=== PATIENT | female | born 1940 | race Caucasian/White ===

== ENCOUNTER 2018-09-21 20:20 | Emergency (ER) | payer MEDICARE, OTHER ==
--- OUTSIDE RECORDS SUMMARY | 2018-09-21 20:56 | XMS REPORT | Continuity of Care Document ---
:1940 External Reference #:[id number] Author Name Jami Barraza Care Team Providers Name Role Phone Soni Musa MD Primary Care Physician Unavailable Payers Date Identification Numbers Payment Provider Subscriber Effective: 2009 Policy Number: [id number] Medicare Pro Vo PayID: [id number] [address] [place] [address] Effective: 2009 Policy Number: [id number] [employer] Pro Vo PayID: [id number] [address] [place] [address] Advance Directives Type Date Description Status Comment Other Directive 03/31/2017 [facility] Care Proxy Current and Verified Problems Date Description Provider Status Onset: 04/27/2011 Benign essential hypertension Sarai Ivy, N.P. Active Onset: 04/27/2011 Basal Cell Carcinoma Skin Of Other & Sarai Ivy N.P. Active Unspecified Parts Of Face Onset: 12/22/2015 Essential hypertension Sarai Ivy, N.P. Active Onset: 10/17/2017 Full thickness rotator cuff tear Judah Segura MD Active Onset: 05/25/2018 Localized, primary osteoarthritis of the Judah Segura MD Active shoulder region Family History Date Family Member(s) Observation Comments General Diabetes General Rheumatoid Arthritis General Heart Disease General Hypertension General Stroke Father due to Prostate () - age 86 Cancer Mother Lung Cancer (82), Smoker : (age 82 Mother due to Lung Cancer Years) First Brother Healthy Social History Type Date Description Comments Sex Unknown Marital Status Lives With Alone Occupation 75 Years [employer] retired Age 77 Tobacco Use Start: Unknown Never Smoked Cigarettes Smoking Status Reviewed: 09/13/18 Never Smoked Cigarettes ETOH Use Currently consumes 6 - 8 per week alcohol Tobacco Use Start: Unknown Patient has never smoked Recreational Drug Use Denies Drug Use Recreational Drug Use Never Used Drugs Exercise Type/Frequency Exercises regularly Daily Allergies, Adverse Reactions, Alerts Date Description Reaction Status Severity Comments 03/30/2010 No Known Drug Allergy Active Medications Medication Date Status Form Strength Qnty SIG Indications Ordering Provider Ramipril 09/13 Active Capsules 5mg 90cap 1 by mouth I48.91 Yessy S. /2018 s every day Ganesh, N.P. Xarelto 08/30 Active Tablets 20mg 30tab 1 by mouth s every day Luis Fernando Peña M.D. Centrum Silver Active Tablets 1 by mouth Unknown Ultra Womens /0000 every day Glucosamine Active Capsules 1500Com take two Unknown Chondroitin 1500 /0000 capsule/ta Complex Maximum blet daily Strength by mouth Coq10 Active Capsules 400mg 1 by mouth Unknown /0000 every day Vitamin E-400 Active Capsules 400Unit 1 by mouth Unknown /0000 D3 Maximum Active Capsules 5000Unit take one Unknown Strength /0000 capsule/ta blet daily by mouth Fish Oil [place] 3 Active 1360 mg 1 Unknown Pur[employer] /0000 gel cap po qd Fish Oil Plus Co 09/13 Hx Capsules 1000-30mg Yessy S. Q- Ganesh, - N.P. 09/12 Cardizem CD 08/30 Hx Caps ER 120mg 30cap 1 by mouth 24HR s every day Miya Knight M.D. 08/30 Calan SR 08/30 Hx Tablets 120mg 30tab 1 by mouth ER s every day Miya Knight M.D. 08/30 Cardizem CD 08/30 Hx Caps ER 120mg 30cap 1 by mouth 24HR s every day Miya Knight M.D. 09/13 Clotrimazole 12/21 Hx Yuri 10mg 70uni use 1 B37.0 ts yuri 5 Varn, N.P. - times 05/18 daily for /2017 14 days Tramadol HCL 08/04 Hx Tablets 50mg 60tab 1 tablet s three to Varn, N.P. - four times 12/21 daily needed Vicodin 07/17 Hx Tablets 5-300mg 30tab take 1 by s mouth Varn, N.P. - every 6 08/04 hours needed Gabapentin 11/08 Hx Capsules 300mg 90cap 1 po tid 053.10 s Varn, N.P. - 02/26 Tramadol HCL 11/06 Hx Tablets 50mg 30tab one tablet 733.6 s every 6 Ilsa, - hours as M.D., FACP 02/26 Meclizine HCL 07/09 Hx Tablets 25mg 30tab 1 tablet 386.11 s every 8 Varn, N.P. - hours 02/26 Cipro 06/28 Hx Tablets 250mg 6tabs 1 Twice 788.1 Daily Ilsa, - M.D., FACP 07/04 Pyridium 06/28 Hx Tablets 200mg 1tabs 1 as 788.1 needed Ilsa, - every 6 M.D., FACP Ramipril 05/27 Hx Capsules 5mg 90cap Take 1 I10 s Capsule By Varn, N.P. - Mouth 08/30 /2018 Losartan 04/27 Hx Tablets 50-12.5mg 30tab 1 po qd 401.1 Quynh Potassium/Hydrochl s Ilsa, orothiazide - M.D., FACP 09/09 Hydrochlorothiazid 09/20 Hx Tablets 25mg 90tab Take One s Tablet By Cotton, - Mouth M.D. 04/27 Ciprofloxacin HCL 03/30 Hx 250mg 6unit 1 tab s twice Ilsa, - daily M.D., FACP 04/02 HCTZ Hx 25mg. 90uni 1 tablet Quynh / ts daily Ilsa, - M.D., FACP 10/25 Advil PM Hx Tablets 200-38mg 30tab 1 po q hs Unknown /0000 s prn - 08/30 Aleve Hx Capsules 220mg 60cap 1 po bid Unknown /0000 s prn - 08/30 [place] 3 Hx Capsules 1000mg 1 by mouth Unknown /0000 qd. - 08/30 Potassium Hx Tablets 99mg once a day Unknown /0000 - 05/24 Vitamin D-3 Hx Capsules 1000Unit 1 by mouth Unknown /0000 every day - 09/12 Caltrate 600+D3 Hx Chewtabs 600-800mg 1 by mouth Unknown Soft /0000 -Unit every day - 09/12 Xarelto Hx Tablets 15mg 2 by mouth Unknown /0000 every day - Pt 08/30 to 20 mg after 21 days Medications Administered in Office Medication Date Status Form Strength Qnty SIG Indications Ordering Provider Triamcinolone 05/25/ Administered Injection Zaneb (Kenalog) 2017 MD Imelda Immunizations CPT Code Status Date Vaccine Lot # [id number] Given 04/13/2018 Influenza Virus Vaccine, Quadrivalent, Split, Preservative Free [id number] Given 12/22/2015 Pneumonia Vaccine [id number] 52483 Given 12/22/2015 Tdap - Tetanus/Diptheria/Acellular Pertussis 4 [id number] Given 08/29/2014 Zoster (Zostavax) [id number] 12085 Given 08/29/2014 Pneumococcal Conjugate Vaccine 13 Valent For [id number] Intramuscular Use Vital Signs Date Vital Result Comment 09/13/2018 10:34am Height 64 inches 5'4" Weight 129.50 lb no boots Heart Rate 80 /min BP Systolic Sitting 112 mmHg lue reg cuff BP Diastolic Sitting 80 mmHg lue reg cuff BP Systolic Standing 118 mmHg lue reg cuff BP Diastolic Standing 80 mmHg lue reg cuff Respiratory Rate 14 /min BMI (Body Mass Index) 22.2 kg/m2 Ejection Fraction 55-60% 14 08/30/2018 11:30am Height 64 inches 5'4" Weight 134.00 lb W/ Shoes Heart Rate 78 /min Irreg BP Systolic 125 mmHg Rue BP Diastolic 75 mmHg Rue BP Systolic Sitting 135 mmHg lue BP Diastolic Sitting 80 mmHg lue BP Systolic Standing 125 mmHg lue BP Diastolic Standing 70 mmHg lue Respiratory Rate 16 /min BMI (Body Mass Index) 23.0 kg/m2 08/29/2018 11:56am Height 64 inches 5'4" Weight 135.00 lb Heart Rate 106 /min BP Systolic 125 mmHg 123/88 left arm BP Diastolic 67 mmHg 123/88 left arm Body Temperature 97.0 F O2 % BldC Oximetry 97 % BMI (Body Mass Index) 23.2 kg/m2 05/25/2018 11:09am Height 64 inches 5'4" Heart Rate 72 /min BP Systolic 116 mmHg BP Diastolic 70 mmHg Body Temperature 97.2 F Pain Level 8 05/24/2018 9:54am Height 64 inches 5'4" Weight 133.00 lb Heart Rate 94 /min BP Systolic 129 mmHg BP Diastolic 89 mmHg Body Temperature 96.5 F O2 % BldC Oximetry 98 % BMI (Body Mass Index) 22.8 kg/m2 11/17/2017 10:20am Weight 132.50 lb Heart Rate 78 /min BP Systolic 122 mmHg BP Diastolic 64 mmHg Body Temperature 97.9 F O2 % BldC Oximetry 96 % 10/17/2017 9:29am Height 64 inches 5'4" Weight 135.00 lb Heart Rate 66 /min BP Systolic Sitting 120 mmHg BP Diastolic Sitting 74 mmHg Respiratory Rate 16 /min Pain Level 7 left shoulder BMI (Body Mass Index) 23.2 kg/m2 10/03/2017 9:09am Height 64 inches 5'4" Weight 135.00 lb BP Systolic 128 mmHg BP Diastolic 74 mmHg Respiratory Rate 18 /min Pain Level 7 BMI (Body Mass Index) 23.2 kg/m2 05/19/2017 3:31pm Height 64 inches 5'4" Weight 131.00 lb Heart Rate 76 /min BP Systolic Sitting 140 mmHg BP Diastolic Sitting 92 mmHg Body Temperature 98.0 F O2 % BldC Oximetry 98 % BMI (Body Mass Index) 22.5 kg/m2 01/16/2017 3:46pm Weight 131.00 lb with shoes Heart Rate 69 /min BP Systolic 144 mmHg BP Diastolic 84 mmHg Body Temperature 96.7 F O2 % BldC Oximetry 98 % 12/22/2015 3:34pm Height 63.5 inches 5'3.50" Weight 132.00 lb Heart Rate 68 /min BP Systolic Sitting 124 mmHg BP Diastolic Sitting 76 mmHg Respiratory Rate 15 /min Body Temperature 98.1 F O2 % BldC Oximetry 98 % BMI (Body Mass Index) 23.0 kg/m2 07/21/2015 10:08am Weight 137.50 lb Heart Rate 80 /min BP Systolic Sitting 135 mmHg BP Diastolic Sitting 91 mmHg Body Temperature 97.3 F Pain Level 8 O2 % BldC Oximetry 98 % 08/29/2014 10:29am Height 65 inches 5'5" Weight 141.00 lb Heart Rate 72 /min BP Systolic Sitting 123 mmHg BP Diastolic Sitting 71 mmHg Pain Level 98 BMI (Body Mass Index) 23.5 kg/m2 05/23/2014 11:15am Height 65 inches 5'5" Weight 145.00 lb Heart Rate 80 /min BP Systolic Sitting 120 mmHg BP Diastolic Sitting 78 mmHg Body Temperature 97.0 F BMI (Body Mass Index) 24.1 kg/m2 02/26/2014 3:12pm Height 65 inches 5'5" Weight 142.00 lb Heart Rate 72 /min BP Systolic Sitting 144 mmHg BP Diastolic Sitting 86 mmHg BMI (Body Mass Index) 23.6 kg/m2 11/08/2013 2:58pm Heart Rate 84 /min BP Systolic 136 mmHg BP Diastolic 80 mmHg Respiratory Rate 16 /min Body Temperature 97.1 F 11/06/2013 2:26pm Weight 143.00 lb Heart Rate 88 /min BP Systolic Sitting 142 mmHg BP Diastolic Sitting 80 mmHg Respiratory Rate 20 /min Pain Level 3 constant but has sharp increase at times O2 % BldC Oximetry 97 % 08/26/2013 1:32pm Height 66.75 inches 5'6.75" Weight 139.00 lb Heart Rate 88 /min BP Systolic Sitting 110 mmHg BP Diastolic Sitting 72 mmHg BMI (Body Mass Index) 21.9 kg/m2 07/09/2013 3:48pm Weight 138.50 lb Heart Rate 74 /min BP Systolic Sitting 160 mmHg BP Diastolic Sitting 80 mmHg 07/04/2012 3:06pm Height 65 inches 5'5" Weight 138.00 lb Heart Rate 70 /min BP Systolic Sitting 126 mmHg BP Diastolic Sitting 72 mmHg BMI (Body Mass Index) 23.0 kg/m2 06/28/2012 1:55pm Height 66 inches 5'6" Heart Rate 68 /min BP Systolic Sitting 120 mmHg BP Diastolic Sitting 78 mmHg Body Temperature 97.5 F 09/09/2011 3:54pm Height 66 inches 5'6" Weight 137.00 lb Heart Rate 72 /min BP Systolic Sitting 122 mmHg BP Diastolic Sitting 72 mmHg BMI (Body Mass Index) 22.1 kg/m2 05/27/2011 2:02pm Height 66 inches 5'6" Weight 135.00 lb Heart Rate 60 /min BP Systolic Sitting 150 mmHg BP Diastolic Sitting 80 mmHg BMI (Body Mass Index) 21.8 kg/m2 04/27/2011 2:53pm Height 66 inches 5'6" Weight 135.00 lb Heart Rate 64 /min BP Systolic Sitting 156 mmHg BP Diastolic Sitting 78 mmHg BMI (Body Mass Index) 21.8 kg/m2 10/25/2010 2:53pm Weight 138.50 lb Heart Rate 64 /min BP Systolic 130 mmHg BP Diastolic 80 mmHg 04/26/2010 2:31pm Height 65.25 inches 5'5.25" Weight 136.38 lb Heart Rate 60 /min BP Systolic 140 mmHg BP Diastolic 80 mmHg BMI (Body Mass Index) 22.5 kg/m2 Results Test Date Facility Test Result H/L Range Note Order 08/29/2018 [facility] E[facility] <pending> CBC Auto Diff 08/29/2018 [facility] White Blood 5.4 10^3/uL N 3.5-10.[address] [place] [address] [phone] Red Blood Count 4.14 10^6/uL N 4.00-5.40 Hemoglobin 13.4 g/dL N 12.0-16.0 Hematocrit 40 % N 35-47 Mean Corpuscular Volume 96 fL N 80-97 Mean Corpuscular Hemoglobin 32 pg High 27-31 Mean Corpuscular HGB Conc 34 g/dL N 31-36 Red Cell Distribution Width 13 % N 10.5-15 Platelet Count 248 10^3/uL N 150-450 Mean Platelet Volume 7.7 fL N 7.4-10.4 Abs Neutrophils 3.4 10^3/uL N 1.5-7.7 Abs Lymphocytes 1.5 10^3/uL N 1.0-4.8 Abs Monocytes 0.4 10^3/uL N 0-0.8 Abs Eosinophils 0 10^3/uL N 0-0.6 Abs Basophils 0.1 10^3/uL N 0-0.2 Abs Nucleated RBC 0 10^3/uL Granulocyte % 63.1 % Lymphocyte % 27.5 % Monocyte % 7.7 % Eosinophil % 0.6 % Basophil % 1.1 % Nucleated Red Blood Cells % 0 Comp Metabolic Panel 08/29/2018 [facility] Sodium 135 mmol/L N 135-[address] [place] [address] [phone] Potassium 4.1 mmol/L N 3.5-5.0 Chloride 100 mmol/L Low 101-111 Co2 Carbon Dioxide 27 mmol/L N 22-32 Anion Gap 8 mmol/L N 2-11 Glucose 102 mg/dL High 70-100 Blood Urea Nitrogen 13 mg/dL N 6-24 Creatinine 0.56 mg/dL N 0.51-0.95 BUN/Creatinine Ratio 23.2 High 8-20 Calcium 9.6 mg/dL N 8.6-10.3 Total Protein 7.7 g/dL N 6.4-8.9 Albumin 4.7 g/dL N 3.2-5.2 Globulin 3.0 g/dL N 2-4 Albumin/Globulin Ratio 1.6 N 1-3 Total Bilirubin 0.60 mg/dL N 0.2-1.0 Alkaline Phosphatase 92 U/L N 34-104 Alt 20 U/L N 7-52 Ast 21 U/L N 13-39 Egfr Non- 105.3 >60 Egfr 127.4 >60 1 Laboratory test 08/29/2018 [facility] TSH (Thyroid 2.17 mcIU/mL N 0.34-5.[address] Stim Horm) [place] [address] [phone] Magnesium 2.1 mg/dL N 1.9-2.7 Comp Metabolic Panel 05/28/2018 [facility] Sodium 136 mmol/L N 135-[address] [place] [address] [phone] Potassium 4.1 mmol/L N 3.5-5.0 Chloride 101 mmol/L N 101-111 Co2 Carbon Dioxide 27 mmol/L N 22-32 Anion Gap 8 mmol/L N 2-11 Glucose 102 mg/dL High 70-100 Blood Urea Nitrogen 16 mg/dL N 6-24 Creatinine 0.59 mg/dL N 0.51-0.95 BUN/Creatinine Ratio 27.1 High 8-20 Calcium 9.6 mg/dL N 8.6-10.3 Total Protein 7.9 g/dL N 6.4-8.9 Albumin 4.8 g/dL N 3.2-5.2 Globulin 3.1 g/dL N 2-4 Albumin/Globulin Ratio 1.5 N 1-3 Total Bilirubin 0.80 mg/dL N 0.2-1.0 Alkaline Phosphatase 106 U/L High 34-104 Alt 35 U/L N 7-52 Ast 32 U/L N 13-39 Egfr Non- 99.1 >60 Egfr 119.9 >60 2 Lipid Profile 05/28/2018 [facility] Triglycerides 87 mg/dL 3 (Trig/Chol/HDL) [address] [place] [address] [phone] Cholesterol 225 mg/dL 4 HDL Cholesterol 73.4 mg/dL 5 LDL Cholesterol 134 mg/dL 6 Comp Metabolic Panel 11/14/2017 [facility] Sodium 137 mmol/L Low 139-[address] [place] [address] [phone] Potassium 4.0 mmol/L N 3.5-5.0 Chloride 101 mmol/L N 101-111 Co2 Carbon Dioxide 29 mmol/L N 22-32 Anion Gap 7 mmol/L N 2-11 Glucose 105 mg/dL High 70-100 Blood Urea Nitrogen 11 mg/dL N 6-24 Creatinine 0.56 mg/dL N 0.51-0.95 BUN/Creatinine Ratio 19.6 N 8-20 Calcium 9.6 mg/dL N 8.6-10.3 Total Protein 7.7 g/dL N 6.4-8.9 Albumin 4.7 g/dL N 3.2-5.2 Globulin 3.0 g/dL N 2-4 Albumin/Globulin Ratio 1.6 N 1-3 Total Bilirubin 0.80 mg/dL N 0.2-1.0 Alkaline Phosphatase 109 U/L High 34-104 Alt 12 U/L N 7-52 Ast 16 U/L N 13-39 Egfr Non- 105.5 >60 Egfr 135.7 >60 7 Lipid Profile 11/14/2017 [facility] Triglycerides 139 mg/dL 8 (Trig/Chol/HDL) [address] [place] [address] [phone] Cholesterol 255 mg/dL 9 HDL Cholesterol 66.6 mg/dL 10 LDL Cholesterol 161 mg/dL 11 Laboratory test 11/14/2017 [facility] Vitamin D 46.2 ng/mL N 20-50 [address] Total 25(Oh) [place] [address] [phone] Comp Metabolic 01/01/2015 [facility] Sodium 136 mmol/L N 133- 145 [address] [place] [address] [phone] Potassium 4.3 mmol/L N 3.5-5.0 Chloride 102 mmol/L N 101-111 Co2 Carbon Dioxide 27 mmol/L N 22-32 Anion Gap 7 mmol/L N 2-11 Glucose 96 mg/dL N 70-100 Blood Urea Nitrogen 11 mg/dL N 6-24 Creatinine 0.56 mg/dL N 0.51-0.95 BUN/Creatinine Ratio 19.6 N 8-20 Calcium 9.4 mg/dL N 8.6-10.3 Total Protein 7.3 g/dL N 6.4-8.9 Albumin 4.7 g/dL N 3.2-5.2 Globulin 2.6 g/dL N 2-4 Albumin/Globulin Ratio 1.8 N 1-3 Total Bilirubin 0.80 mg/dL N 0.2-1.0 Alkaline Phosphatase 90 U/L N 34-104 Alt 15 U/L N 7-52 Ast 19 U/L N 13-39 Egfr Non- 106.4 N >60 Egfr 136.9 N >60 14 Lipid Profile 01/01/2015 [facility] Triglycerides 101 mg/dL N 15 (Trig/Chol/HDL) [address] [place] [address] [phone] Cholesterol 269 mg/dL N 16 HDL Cholesterol 72.8 mg/dL N 17 LDL Cholesterol 176 mg/dL N 18 Laboratory test 01/01/2015 [facility] Vitamin D 39.1 ng/mL N 30-[address] Total 25(Oh) [place] [address] [phone] Inr/Protime 07/08/2013 [facility] Inr 0.93 0.85-1.[address] [place] [address] [phone] Laboratory test 07/08/2013 [facility] Activated 27.9 seconds 24.0-36.1 [address] [place] [address] Thrombo Time [phone] Comp Metabolic 07/08/2013 [facility] Sodium 133 mmol/L 133- [address] [place], [place] [id number] [phone] Potassium 3.9 mmol/L 3.5-5.0 Chloride 101 mmol/L 101-111 Co2 Carbon Dioxide 22.0 mmol/L 22-32 Anion Gap 10.0 mmol/L 2-11 Glucose 102 mg/dL High 70-100 Blood Urea Nitrogen 7 mg/dL 6-24 Creatinine 0.50 mg/dL 0.50-1.40 BUN/Creatinine Ratio 14.0 8-20 Calcium 9.5 mg/dL 8.1-9.9 Total Protein 6.7 g/dL 6.2-8.1 Albumin 4.3 g/dL 3.2-5.2 Globulin 2.4 g/dL 2-4 Albumin/Globulin Ratio 1.8 1-3 Total Bilirubin 0.9 mg/dL 0.4-1.5 Alkaline Phosphatase 112 U/L High 30-110 Alt 16 U/L 14-54 Ast 18 U/L 12-42 Egfr Non- 121.6 >60 Egfr 156.4 >60 21 Laboratory test 07/08/2013 [facility] Troponin I 0 ng/mL 0- 0.[address] [place] [address] [phone] Urinalysis 07/08/2013 [facility] Urine Color Yellow [address] [place] [address] [phone] Urine Appearance Clear Urine Specific Blanca 1.011 1.010-1.030 Urine Esterase 2+ Abnormal Negative Urine Nitrate Negative Negative Urine Urobilinogen Negative E.U./dL Negative Urine Protein Negative mg/dL Negative Urine pH 6.5 5-9 Urine Blood Negative Negative Urine Ketones Trace mg/dL Abnormal Negative Urine Bilirubin Negative Negative Urine Glucose Negative mg/dL Negative Urine Microscopic 07/08/2013 [facility] Urine WBC 1+ (<10 None Seen [address] /hpf) [place] [address] [phone] Urine RBC 1+ (<3 /hpf) None Seen Urine Epithelial Cells 1+ Squamous /hpf None Seen Bacteria Urine 1+ None Seen Urine Culture And 07/08/2013 [facility] Urine Culture (SEE NOTE ) [address] [place] [address] [phone] CBC Auto Diff 07/08/2013 [facility] White Blood 3.7 Low 4.8-[address] Count 10^3/uL 0.8 [place] [address] [phone] Red Blood Count 3.97 10^6/uL Low 4.0-5.4 Hemoglobin 12.6 g/dL 12.0-16.0 Hematocrit 36 % 35-47 Mean Corpuscular Volume 91 fL 80-97 Mean Corpuscular Hemoglobin 32 pg High 27-31 Mean Corpuscular HGB Conc 35 g/dL 31-36 Red Cell Distribution Width 12 % 10.5-15 Platelet Count 244 10^3/uL 150-450 Mean Platelet Volume 8 um3 7.4-10.4 Abs Neutrophils 2.3 10^3/uL 1.5-7.7 Abs Lymphocytes 0.9 10^3/uL Low 1.0-4.8 Abs Monocytes 0.4 10^3/uL 0-0.8 Abs Eosinophils 0 10^3/uL 0-0.6 Abs Basophils 0 10^3/uL 0-0.2 Abs Nucleated RBC 0 10^3/uL Granulocyte % 63.1 % 38-83 Lymphocyte % 25.1 % 25-47 Monocyte % 10.1 % High 1-9 Eosinophil % 0.7 % 0-6 Basophil % 1.0 % 0-2 Nucleated Red Blood Cells % 0.1 CBC Auto Diff 07/03/2013 [facility] White Blood 8.1 10^3/uL 4.8-10.[address] [place] [address] [phone] Red Blood Count 4.24 10^6/uL 4.0-5.4 Hemoglobin 13.1 g/dL 12.0-16.0 Hematocrit 39 % 35-47 Mean Corpuscular Volume 92 fL 80-97 Mean Corpuscular Hemoglobin 31 pg 27-31 Mean Corpuscular HGB Conc 34 g/dL 31-36 Red Cell Distribution Width 12 % 10.5-15 Platelet Count 226 10^3/uL 150-450 Mean Platelet Volume 8 um3 7.4-10.4 Abs Neutrophils 6.9 10^3/uL 1.5-7.7 Abs Lymphocytes 0.8 10^3/uL Low 1.0-4.8 Abs Monocytes 0.4 10^3/uL 0-0.8 Abs Eosinophils 0 10^3/uL 0-0.6 Abs Basophils 0 10^3/uL 0-0.2 Abs Nucleated RBC 0 10^3/uL Granulocyte % 85.1 % High 38-83 Lymphocyte % 9.5 % Low 25-47 Monocyte % 4.8 % 1-9 Eosinophil % 0.2 % 0-6 Basophil % 0.4 % 0-2 Nucleated Red Blood Cells % 0 Comp Metabolic Panel 07/03/2013 [facility] Sodium 135 mmol/L 133-[address] [place] [address] [phone] Potassium 3.7 mmol/L 3.5-5.0 Chloride 102 mmol/L 101-111 Co2 Carbon Dioxide 23.0 mmol/L 22-32 Anion Gap 10.0 mmol/L 2-11 Glucose 112 mg/dL High 70-100 Blood Urea Nitrogen 11 mg/dL 6-24 Creatinine 0.50 mg/dL 0.50-1.40 BUN/Creatinine Ratio 22.0 High 8-20 Calcium 9.4 mg/dL 8.1-9.9 Total Protein 7.7 g/dL 6.2-8.1 Albumin 4.4 g/dL 3.2-5.2 Globulin 3.3 g/dL 2-4 Albumin/Globulin Ratio 1.3 1-3 Total Bilirubin 0.9 mg/dL 0.4-1.5 Alkaline Phosphatase 100 U/L 30-110 Alt 21 U/L 14-54 Ast 22 U/L 12-42 Egfr Non- 121.6 >60 Egfr 156.4 >60 24 Laboratory test 07/03/2013 [facility] Troponin I 0 ng/mL 0- 0.06 [address] [place] [address] [phone] Vitamin D 1,25 07/11/2012 [facility] Vitamin D 66 pg/mL 18- 78 26 And Vitamin D,[address] 1,25[place] [address] [phone] Vitamin D, 25 07/11/2012 [facility] 25-Hydroxy <4.0 ng/mL Hydroxy [address] Vitamin [place]2 [place] [address] [phone] 25-Hydroxy Vitamin D3 43 ng/mL 25-Hydroxy Vitamin D Total 43 ng/mL 27 Comp Metabolic Panel 07/11/2012 [facility] Sodium 135 mmol/L 133-[address] [place] [address] [phone] Potassium 3.5 mmol/L 3.5-5.0 Chloride 103 mmol/L 101-111 Co2 Carbon Dioxide 25.0 mmol/L 22-32 Anion Gap 7.0 mmol/L 2-11 Glucose 95 mg/dL 70-100 Blood Urea Nitrogen 8 mg/dL 6-24 Creatinine 0.50 mg/dL 0.50-1.40 BUN/Creatinine Ratio 16.0 8-20 Calcium 9.5 mg/dL 8.1-9.9 Total Protein 6.7 g/dL 6.2-8.1 Albumin 4.5 g/dL 3.2-5.2 Globulin 2.2 g/dL 2-4 Albumin/Globulin Ratio 2.0 1-3 Total Bilirubin 0.9 mg/dL 0.4-1.5 Alkaline Phosphatase 94 U/L 30-110 Alt 18 U/L 14-54 Ast 23 U/L 12-42 Egfr Non- 122.0 >60 Egfr 156.9 >60 28 Lipid Profile 07/11/2012 [facility] Triglycerides 101 mg/dL 40-200 (Trig/Chol/HDL) [address] [place] [address] [phone] Cholesterol 276 mg/dL High Less than 200 HDL Cholesterol 68 mg/dL High 40-60 29 Cholesterol/HDL Ratio 4.1 Average 1-4.44 LDL Cholesterol 187.8 mg/dL High Less Than 100 30 Laboratory test 07/11/2012 [facility] TSH (Thyroid 3.78 0.34- 5.[address] Stimulating MIU/[place] [address] Horm) [phone] Ua Routine 07/04/2012 [facility] Ua Specific 1.005 Blanca Ua PH 7 Ua Color eh Ua Appera clear Ua WBC trace Ua Protein neg Ua Glucose neg Ua Ketones neg Ua Bilirubin neg Ua Urobilinogen neg Ua Nitrite neg Ua Occult Blood neg Ua Routine 06/28/2012 [facility] Ua Specific Blanca 1.000 Ua PH 5 Ua Color pale Ua Appera clear Ua WBC small Ua Protein neg Ua Glucose neg Ua Ketones neg Ua Bilirubin neg Ua Urobilinogen neg Ua Nitrite neg Ua Occult Blood Non hem trace Urine Culture And 06/28/2012 [facility] Urine Culture (SEE NOTE ) 31 Sensitivities [address] [place] [address] [phone] Comp Metabolic 05/12/2011 [facility] Sodium 135 mmol/L 135- [address] [place] [phone] Potassium 4.2 mmol/L 3.5-5.0 Chloride 100 mmol/L Low 101-111 Co2 (Carbon Dioxide) 30.0 mmol/L 22-32 Anion Gap 5.0 mmol/L 2-11 32 Glucose 99 mg/dL 70-100 BUN 8 mg/dL 6-24 Creatinine 0.5 mg/dL Low 0.50-1.40 One Over Creatinine 2.00 BUN/Creatinine Ratio 16.0 8-20 Calcium 9.3 mg/dL 8.1-9.9 Total Protein 7.0 GM/DL 6.2-8.1 Albumin 4.2 GM/DL 3.2-5.2 Globulin 2.8 GM/DL 2-4 Albumin/Globulin Ratio 1.5 1-3 Bilirubin Total 0.9 mg/dL 0.4-1.5 33 Alkaline Phosphatase 80 U/L 30-110 Alt (SGPT) 19 U/L 14-54 Ast (Sgot) 23 U/L 12-42 eGFR Non- 122.3 > 60 eGFR 157.3 > 60 34 Laboratory test 05/12/2011 [facility] TSH 4.59 MIU/ML 0.34- 5.[address] [place] [address] [phone] Lipid Profile 05/12/2011 [facility] Triglyceride 157 mg/dL 40 -200 (Trig/Chol/HDL) [address] [place] [address] [phone] Cholesterol 283 mg/dL High Less Than 200 35 High Density Lipoprotein 69 mg/dL High 40-60 36 Cholesterol/HDL Ratio 4.10 AVERAGE 1-4.44 Low Density Lipoprotein 183 mg/dL High Less Than 100 37 1 Because ethnic data is not always readily available, this report includes an eGFR for both -Americans and non- Americans. The National Kidney Disease Education Program (NKDEP) does not endorse the use of the MDRD equation for patients that are not between the ages of 18 and 70, are , have extremes of body size, muscle mass, or nutritional status, or are non- or non-. According to the [employer], irrespective of diagnosis, the stage of the disease is based on the level of kidney function: Stage Description GFR(mL/min/1.73 m(2)) 1 Kidney damage with normal or decreased GFR 90 2 Kidney damage with mild decrease in GFR 60-89 3 Moderate decrease in GFR 30-59 4 Severe decrease in GFR 15-29 5 Kidney failure <15 (or dialysis) 2 Because ethnic data is not always readily available, this report includes an eGFR for both -Americans and non- Americans. The National Kidney Disease Education Program (NKDEP) does not endorse the use of the MDRD equation for patients that are not between the ages of 18 and 70, are , have extremes of body size, muscle mass, or nutritional status, or are non- or non-. According to the National Kid[employer] Foundation, irrespective of diagnosis, the stage of the disease is based on the level of kidney function: Stage Description GFR(mL/min/1.73 m(2)) 1 Kidney damage with normal or decreased GFR 90 2 Kidney damage with mild decrease in GFR 60-89 3 Moderate decrease in GFR 30-59 4 Severe decrease in GFR 15-29 5 Kidney failure <15 (or dialysis) 3 Desirable: <150 Borderline High: 150-199 High: 200-499 Very High: >500 4 Desirable: <200 Borderline High: 200-239 High: >239 5 Low: <40 Desirable: 40-60 High: >60 6 Desirable: <100 Near Optimal: 100-129 Borderline High: 130-159 High: 160-189 Very High: >189 7 Because ethnic data is not always readily available, this report includes an eGFR for both -Americans and non- Americans. The National Kidney Disease Education Program (NKDEP) does not endorse the use of the MDRD equation for patients that are not between the ages of 18 and 70, are , have extremes of body size, muscle mass, or nutritional status, or are non- or non-. According to the National Kidney Foundation, irrespective of diagnosis, the stage of the disease is based on the level of kidney function: Stage Description GFR(mL/min/1.73 m(2)) 1 Kidney damage with normal or decreased GFR 90 2 Kidney damage with mild decrease in GFR 60-89 3 Moderate decrease in GFR 30-59 4 Severe decrease in GFR 15-29 5 Kidney failure <15 (or dialysis) 8 Desirable: <150 Borderline High: 150-199 High: 200-499 Very High: >500 9 Desirable: <200 Borderline High: 200-239 High: >239 10 Low: <40 Desirable: 40-60 High: >60 11 Desirable: <100 Near Optimal: 100-129 Borderline High: 130-159 High: 160-189 Very High: >189 12 FASTING 10 HOUR 13 PT IS FASTING 14 Because ethnic data is not always readily available, this report includes an eGFR for both -Americans and non- Americans. The National Kidney Disease Education Program (NKDEP) does not endorse the use of the MDRD equation for patients that are not between the ages of 18 and 70, are , have extremes of body size, muscle mass, or nutritional status, or are non- or non-. According to the National Kidney Foundation, irrespective of diagnosis, the stage of the disease is based on the level of kidney function: Stage Description GFR(mL/min/1.73 m(2)) 1 Kidney damage with normal or decreased GFR 90 2 Kidney damage with mild decrease in GFR 60-89 3 Moderate decrease in GFR 30-59 4 Severe decrease in GFR 15-29 5 Kidney failure <15 (or dialysis) 15 Desirable <150 Borderline high 150-199 High 200-499 Very High >500 16 Desirable <200 Borderline high 200-239 High >239 17 Low <40 Desirable: 40-60 High: >60 18 Desirable: <100 mg/dL Near Optimal: 100-129 mg/dL Borderline High: 130-159 mg/dL High: 160-189 mg/dL Very High: >189 mg/dL 19 Please note the change in the INR reference range effective 13. 20 Please note the change in the PTT reference range effective 13. 21 Because ethnic data is not always readily available, this report includes an eGFR for both -Americans and non- Americans. The National Kidney Disease Education Program (NKDEP) does not endorse the use of the MDRD equation for patients that are not between the ages of 18 and 70, are , have extremes of body size, muscle mass, or nutritional status, or are non- or non-. According to the National Kidney Foundation, irrespective of diagnosis, the stage of the disease is based on the level of kidney function: Stage Description GFR(mL/min/1.73 m(2)) 1 Kidney damage with normal or decreased GFR 90 2 Kidney damage with mild decrease in GFR 60-89 3 Moderate decrease in GFR 30-59 4 Severe decrease in GFR 15-29 5 Kidney failure <15 (or dialysis) 22 Reference Range and Interpretation: TnI (ng/mL) Interpretation Less Than 0.06 ng/mL Not supportive of diagnosis of IN 0.06 - 0.50 ng/mL Indeterminate: suggest serial studies if clinically indicated. Greater than 0.5 ng/mL Consistent with diagnosis of IN 23 RUN DATE: 07/10/13 [facility] LAB LIVE PAGE 1 RUN TIME: [address] [place] [id number] Specimen Inquiry Name: PRO VO : [address]: Giovanny Velázquez DO Acct: [id number] Unit: [id number] AGE: 73 Location: ED Re07/08/13 SEX: F Status: DEP ER SPEC: [id number] RANJANA: 07/08/13-[address] [facility] [address]: Raysa BENITEZ REQ: [id number] RECD: 07/08/13 STATUS: JATIN VILLA DR: [facility] Sarai Ivy ELECTRICAL AUTOMATION ENGINEER _ SOURCE: URINE SPDESC: ORDERED: Urine Culture Procedure Result Verified Site Urine Culture Final 07/10/13- 09 ML No Growth Day 2 (<1,000 CFU/mL) END OF REPORT * ML=Testing performed at Main Lab DEPARTMENT OF PATHOLOGY, [address] [place] [address] Ted Alaniz M.D. Director [facility] Permit #[id number] 24 Because ethnic data is not always readily available, this report includes an eGFR for both -Americans and non- Americans. The National Kidney Disease Education Program (NKDEP) does not endorse the use of the MDRD equation for patients that are not between the ages of 18 and 70, are , have extremes of body size, muscle mass, or nutritional status, or are non- or non-. According to the National Kidney Foundation, irrespective of diagnosis, the stage of the disease is based on the level of kidney function: Stage Description GFR(mL/min/1.73 m(2)) 1 Kidney damage with normal or decreased GFR 90 2 Kidney damage with mild decrease in GFR 60-89 3 Moderate decrease in GFR 30-59 4 Severe decrease in GFR 15-29 5 Kidney failure <15 (or dialysis) 25 Reference Range and Interpretation: TnI (ng/mL) Interpretation Less Than 0.06 ng/mL Not supportive of diagnosis of IN 0.06 - 0.50 ng/mL Indeterminate: suggest serial studies if clinically indicated. Greater than 0.5 ng/mL Consistent with diagnosis of IN 26 Test Performed by: [place] [address] Database Programmer Analyst: Miguel Ahn III, M.D. 27 -- REFERENCE VALUE -- 25-HYDROXY D TOTAL (D2+D3) Optimum levels in the normal population are 25-80 Test Performed by: [place] [address] Database Programmer Analyst: Miguel Ahn III, M.D. 28 Because ethnic data is not always readily available, this report includes an eGFR for both -Americans and non- Americans. The National Kidney Disease Education Program (NKDEP) does not endorse the use of the MDRD equation for patients that are not between the ages of 18 and 70, are , have extremes of body size, muscle mass, or nutritional status, or are non- or non-. According to the National Kidney Foundation, irrespective of diagnosis, the stage of the disease is based on the level of kidney function: Stage Description GFR(mL/min/1.73 m(2)) 1 Kidney damage with normal or decreased GFR 90 2 Kidney damage with mild decrease in GFR 60-89 3 Moderate decrease in GFR 30-59 4 Severe decrease in GFR 15-29 5 Kidney failure <15 (or dialysis) 29 HDL Interpretation: Undesirable: High Risk: Less than 40 MG/DL Desirable: Low Risk: Greater than 60 MG/DL 30 LDL Interpretation: Low Risk Optimal Level: LDL Less than 100 MG/DL Near or Above Optimal: LDL 100-129 MG/DL Borderline High Risk: LDL 130-159 MG/DL High Risk: LDL 160-189 MG/DL Very High Risk: LDL Greater than 189 MG/DL 31 RUN DATE: 06/30/12 [facility] LAB LIVE PAGE 1 RUN TIME: [address] [place], [place] [address] Specimen Inquiry Name: PRO VO : [address]: Quynh Rosenbaum MD Acct: [id number] Unit: [id number] AGE: 72 Location: [facility] Re06/28/12 SEX: F Status: REG REF SPEC: [id number] RANJANA: 06/28/121428 [facility] DR: Quynh Rosenbaum MD REQ: [id number] RECD: 06/28/12 STATUS: COMP _ SOURCE: URINE SPDESC: ORDERED: Urine Culture QUERIES: Medent Number [id number] Procedure Result Verified Site Urine Culture Final 06/30/12- 1109 ML Organism 1 NORMAL CALE [place] Count 1-10,000 (Few) CFU/ML END OF REPORT * ML=Testing performed at Main Lab DEPARTMENT OF PATHOLOGY, [address] [place] [address] Ted Alaniz M.D. Director [facility] Permit #[id number] 32 Anion gap measurement may be of limited value in the presence of any alkalosis, especially in a combined acid base disorder. . 33 A metabolite of Naproxen, O-desmethylnaproxen, has been shown to interfere with the Jendrassik-Opal method for measuring total bilirubin. Samples from patients who have taken Naproxen have shown spurious elevation in total bilirubin levels. 34 Because ethnic data is not always readily available, this report includes an eGFR for both -Americans and non- Americans. The National Kidney Disease Education Program (NKDEP) does not endorse the use of the MDRD equation for patients that are not between the ages of 18 and 70, are , have extremes of body size, muscle mass, or nutritional status, or are non- or non-. According to the National Kidney Foundation, irrespective of diagnosis, the stage of the disease is based on the level of kidney function: Stage Description GFR(mL/min/1.73 m(2)) 1 Kidney damage with normal or decreased GFR 90 2 Kidney damage with mild decrease in GFR 60-89 3 Moderate decrease in GFR 30-59 4 Severe decrease in GFR 15-29 5 Kidney failure <15 (or dialysis) 35 CHOLESTEROL INTERPRETATION: Desirable: Less than 200 MG/DL Borderline-High Risk: 200-239 MG/DL High-Risk: 240 MG/DL and over 36 HDL INTERPRETATION: Undesirable: High Risk: Less than 40 MG/DL Desirable: Low Risk: Greater than 60 MG/DL 37 LDL INTERPRETATION: Low Risk Optimal Level: LDL Less than 100 MG/DL Near or Above Optimal: LDL 100-129 MG/DL Borderline High Risk: LDL 130-159 MG/DL High Risk: LDL 160-189 MG/DL Very High Risk: LDL Greater than 189 MG/DL Procedures Date Code Description Status 09/13/2018 13474 EKG Tracing & Interpretation Completed 08/31/2018 13135 Moderate Sedation Services; Same Phys Intl 15 Mins; PT Completed >=5 Years 08/31/2018 97638 Color Flow Doppler/Interp & Reprt Completed 08/31/2018 62698 Pulse Wave/Continuous-Interp.RPT Completed 08/31/2018 53803 Echocardiography, Transesophageal, Real Time W/Image Completed 2D W/W/O M-M 08/31/2018 19893 Cardioversion Completed 08/30/2018 21878 ECHO Transthoracic, Real-Time 2D With Doppler And Completed Color Flow 08/30/2018 57146 ECHO Transthoracic, Real-Time 2D With Doppler And Completed Color Flow 08/30/2018 50382 ECHO Transthoracic, Real-Time 2D With Doppler And Completed Color Flow 08/30/2018 50762 EKG Tracing & Interpretation Completed 08/29/2018 09016 EKG Tracing & Interpretation Completed 05/25/2018 [id number] Mammogram Completed 05/25/2018 75389 Inject/Drain Joint/Bursa Major W/O US Completed 12/25/2015 [id number] Mammogram Completed 09/15/2014 [id number] Bone Mineral Density Test Completed 04/24/2014 [id number] Colonoscopy Completed 07/11/2012 [id number] Bone Mineral Density Test Completed 07/11/2012 [id number] Mammogram Completed 05/20/2011 [id number] Mammogram Completed 04/27/2011 50959 EKG Tracing & Interpretation Completed 05/06/2010 [id number] Bone Mineral Density Test Completed 05/06/2010 [id number] Mammogram Completed 10/10/2008 57179 EKG Tracing & Interpretation Completed Encounters Type Date Location Provider Dx Diagnosis Office Visit 08/30/2018 [facility] Mo Gould I10 Essential ( primary) 11:20a Of Theresa Peña M.D. hypertension I48.0 Paroxysmal atrial fibrillation R06.00 Dyspnea, unspecified I34.0 Nonrheumatic mitral (valve) insufficiency R01.1 Cardiac murmur, unspecified Office Visit 08/29/2018 11:40a [facility] Sarai Ivy, I10 Essential ( primary) Medicine - N.P. hypertension [place] I48.1 Persistent atrial fibrillation Office Visit 05/25/2018 Orthopedic Judah Segura, M19.011 Primary 11:30a Services Of osteoarthritis, C.M.A. right shoulder M75.121 Complete rotatr-cuff tear/ruptr of r shoulder, not trauma Office Visit 11/17/2017 10:20a [facility] Marques Ivy, I10 Essential ( primary) Medicine - N.P. hypertension [place] G25.0 Essential tremor Office Visit 10/17/2017 9:30a Orthopedic Judah Segura, M75.122 Complete Services Of rotatr-cuff C.M.A. tear/ruptr of left shoulder, not trauma Office Visit 10/03/2017 9:00a Orthopedic Judah Segura, M25.512 Pain in left Services Of shoulder C.M.A. S46.012A Strain of musc/tend the rotator cuff of left shoulder, init Office Visit 01/16/2017 4:00p Theresa Ivy, R43.0 Anosmia Medicine - N.P. [place] Office Visit 07/21/2015 10:20a Theresa Ivy, M54.5 Low back pain Medicine - N.P. [place] Office Visit 05/23/2014 11:20a Theresa Ivy V72.84 Examination Medicine - N.P. Preoperative [place] Unspec 401.1 Hypertension Benign 366.9 Cataract Unspec Office Visit 02/26/2014 3:00p [facility] Internal Sarai Ivy, 724.1 Pain Thoracic Medicine - N.P. 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 General Medical [place] Routine AT Health Care Facility 401.1 Hypertension Benign 726.19 Shoulder Disorders Other Spec Office Visit 07/09/2013 4:20p [facility] Internal Sarai Ivy, 386.11 Vertigo Benign Medicine - N.P. Paroxysmal [place] Position Office Visit 06/28/2012 2:20p [facility] Internal Quynh Rosenbaum, 788.1 Dysuria Medicine - M.D., FACP [place] Office Visit 09/09/2011 4:00p [facility] Internal Sarai Ivy, 729.5 Pain In Limb Medicine - N.P. [place] Office Visit 05/27/2011 2:00p DO Not Use Sarai Varn, 401.1 Hypertension Bank Advisor-[place] N.P. Benign 272.4 Hyperlipidemia Other Unspec Office Visit 04/27/2011 DO Not Use Sarai Varn, V70.0 Examination 3:00p Bank Advisor-[place] N.P. General Medical Routine AT Health Care Facility 401.1 Hypertension Benign 733.90 Bone & Cartilage Disorder Unspec V76.10 Screening For Malignant Neoplasm Breast Office Visit 10/25/2010 DO Not Use Sarai Varn, 401.1 Hypertension 3:00p Bank Advisor-[place] N.P. Benign 719.49 Pain Joint Multiple Sites Office Visit 04/26/2010 DO Not Use Sarai Varn, V70.0 Examination 3:00p Bank Advisor-[place] N.P. General Medical Routine AT Health Care Facility V76.2 Screening Malignant Neoplasm Cervix 401.1 Hypertension Benign 715.90 Osteoarthrosis Unspec Genlzd Or Localized Site Unspec 627.3 Atrophic Vaginitis Postmenopausal 724.2 Lumbago V72.31 Routine Manager Property Examination Office Visit 03/30/2010 DO Not Use Quynh Ilsa, 599.0 UTI Urinary Tract 2:30p Kelvin Morejon, FACP Infection Site Not Spec Office Visit 08/18/2009 DO Not Use Sarai 401.1 Hypertension Benign 3:30p Bank Advisor-[place] Varn, N.P. Office Visit 12/10/2008 DO Not Use Sarai 709.9 Skin & Subcutaneous 9:30a Bank Advisor-[place] Varn, N.P. Tissue Disorders Unspec Office Visit 10/10/2008 DO Not Use Sarai 401.1 Hypertension Benign 2:00p Bank Advisor-[place] Varn, N.P. Office Visit 05/18/2007 DO Not Use Sarai 110.5 Dermatophytosis Body 10:45a Bank Advisor-[place] Varn, N.P. Office Visit 04/25/2007 DO Not Use Sarai 796.2 Blood Pressure 3:45p Bank Advisor-[place] Varn, N.P. Reading Elevated W/O Hypertension 272.4 Hyperlipidemia Other Unspec Office Visit 04/11/2007 DO Not Use Sarai Varn, V72.31 Routine Manager Property 2:00p Bank Advisor-[place] N.P. Examination Plan of Treatment Future Appointment(s):11/02/2018 2:20 pm - Mo Peña M.D. at [facility]09/26/2018 11:00 am - Yessy Andersen NPeri. at [facility]2018 9:00 am - [facility] ECHO Schedule at [facility]10/03/2018 9:30 am - Mo Peña M.D. at [facility]09/21/2018 1:30 pm - Nurse Visit cc at [facility]09/20/2018 3:00 pm - Nurse Visit cc at [facility]05/27/2019 9:20 am - Sarai Ivy N.P. at [facility] Internal Medicine - [id number]/25/2019 9:40 am - Sarai Ivy N.PChalino at [facility] Internal Medicine - Andeoejyl56/14/2019 - Yessy S. Foster, N.P.I48.91 Unspecified atrial fibrillationNew Medication:Ramipril 5 mg - 1 by mouth every dayNew Orders: Holter Monitor, Scheduled: 09/20/18Stress Test, Exercise Echocardiogram, Scheduled: 10/03/18Follow up:NALINI Krishnamurthy after Holter OV Aleksandarr 4/1Recommendations: STOP Diltiazem Restart Ramipril Have holter to eval heart rate. Further treatment options include antiarrhythmics and repeat cardioversion. Flecanide and Propafenone are very effective and can only beused in people without coronary disease I will get a stress test, so that we have option of using these in future. Call or send message if you have worsening palpitations/ heart racing off diltiazem.I34.0 Nonrheumatic mitral (valve) [id number] Essential (primary) hypertension
--- OUTSIDE RECORDS SUMMARY | 2018-09-21 20:57 | XMS REPORT | Continuity of Care Document ---
:1940 External Reference #:[id number] Author Name Edda Griffin Care Team Providers Name Role Phone Soni Musa MD Primary Care Physician Unavailable Payers Date Identification Numbers Payment Provider Subscriber Effective: 2009 Policy Number: [id number] Medicare Pro Vo PayID: [id number] [address] [place] [address] Effective: 2009 Policy Number: [id number] [employer] Insurance Pro Vo PayID: [id number] [address] [place] [address] Advance Directives Type Date Description Status Comment Other Directive 03/31/2017 [facility] Care Proxy Current and Verified Problems Date Description Provider Status Onset: 04/27/2011 Benign essential hypertension Sarai Ivy, N.P. Active Onset: 04/27/2011 Basal Cell Carcinoma Skin Of Other & Sarai Ivy, N.P. 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 Centrum Silver Active Tablets 1 by mouth Unknown Ultra Womens /0000 every day Glucosamine Active Capsules 1500Com take one Unknown Chondroitin 1500 /0000 capsule/ta Complex Maximum blet daily Strength by mouth Coq10 Active Capsules 400mg 1 by mouth Unknown /0000 every day Vitamin D-3 Active Capsules 1000Unit 1 by mouth Unknown /0000 every day Vitamin E-400 Active Capsules 400Unit 1 by mouth Unknown /0000 Caltrate 600+D3 Active Chewtabs 600-800mg 1 by mouth Unknown Soft /0000 -Unit [facility] Hx Caps ER 120mg 30cap 1 by mouth 24HR s every day Miya Knight M.D. 08/30 Calan SR 08/30 Hx Tablets 120mg 30tab 1 by mouth ER s every day Miya Knight M.D. 08/30 Clotrimazole 12/21 Hx Yuri 10mg 70uni use 1 B37.0 ts yuri 5 Varn, N.P. - times 05/18 daily for 14 days Tramadol HCL 08/04 Hx Tablets 50mg 60tab 1 tablet s three to Varn, N.P. - four times 12/21 daily needed Vicodin 07/17 Hx Tablets 5-300mg 30tab take 1 by s mouth Varn, N.P. - every 6 /05 hours needed Gabapentin 11/08 Hx Capsules 300mg [...] 50-12.5mg 30tab 1 po qd 401.1 Quynh Potassium/Hydroc s Ilsa, orothiazide - M.D., FACP 09/09 Hydrochlorothiazid 09/20 Hx Tablets 25mg 90tab Take One Soni s Tablet By Cotton, - Mouth M.D. 04/27 Ciprofloxacin HCL 03/30 Hx 250mg 6unit 1 tab s twice Ilsa, - daily M.D., FACP 04/02 HCTZ Hx 25mg. 90uni 1 tablet Quynh ts daily Ilsa, - M.D., FACP 10/25 Advil PM Hx Tablets 200-38mg 30tab 1 po q hs Unknown /0000 s prn - 08/30 Aleve Hx Capsules 220mg 60cap 1 po bid Unknown / s prn - 08/30 [place] 3 Hx Capsules 1000mg 1 by mouth Unknown /0000 qd. - 08/30 Potassium Hx Tablets 99mg once a day Unknown /0000 - 05/24 Xarelto Hx Tablets 15mg 2 by mouth Unknown /0000 every day - Pt 08/30 to 20 mg after 21 days Medications Administered in Office Medication Date Status Form Strength Qnty SIG Indications Ordering Provider Triamcinolone Injection Zaneb (Kenalog) 2017 MD Imelda Immunizations CPT Code Status Date Vaccine Lot # [id number] Given 04/13/2018 Influenza Virus Vaccine, Quadrivalent, Split, Preservative Free [id number] Given 12/22/2015 Pneumonia Vaccine [id number] Given 12/22/2015 Tdap - Tetanus/Diptheria/Acellular Pertussis [id number] Given 08/29/2014 Zoster (Zostavax) [id number] 08784 Given 08/29/2014 Pneumococcal Conjugate Vaccine 13 Valent For [id number] Intramuscular Use Vital Signs Date Vital Result Comment 08/30/2018 11:30am Height 64 inches 5'4" Weight [...] Test Result H/L Range Note Order 08/29/2018 [employer] [employer] In-House EKG <pending> CBC Auto Diff 08/29/2018 [facility] White Blood 5.4 10^3/uL N 3.5-10.[address] [place] [address] [phone] Red Blood Count 4.14 10^6/uL N 4.00-5.40 [...] Cells % 0 Comp Metabolic Panel 08/29/2018 [facility] Sodium 135 mmol/L N 135-[address] [place] [address] [phone] Potassium 4.1 mmol/L N 3.5-5.0 Chloride 100 [...] Egfr 127.4 >60 1 Laboratory test 08/29/2018 [facility] TSH (Thyroid 2.17 mcIU/mL N 0.34-5.[address] Stim [place]) [place] [address] [phone] Magnesium 2.1 mg/dL N 1.9-2.7 Comp Metabolic Panel 05/28/2018 [facility] Sodium 136 mmol/L N 135-[address] [place] [address] [phone] Potassium 4.1 mmol/L N 3.5-5.0 Chloride 101 [...] Egfr 119.9 >60 2 Lipid Profile 05/28/2018 [facility] Triglycerides 87 mg/dL 3 (Trig/Chol/HDL) [address] [place] [address] [phone] Cholesterol 225 mg/dL 4 HDL Cholesterol 73.4 mg/dL 5 LDL Cholesterol 134 mg/dL 6 Laboratory test 11/14/2017 [facility] Vitamin D Total 46.2 ng/ mL N 20-50 [address] 25(Oh) [place] [address] [phone] Lipid Profile 11/14/2017 [facility] Triglycerides 139 mg/dL 8 (Trig/Chol/HDL) [address] [place] [address] [phone] Cholesterol 255 mg/dL 9 HDL Cholesterol 66.6 mg/dL 10 LDL Cholesterol 161 mg/dL 11 Comp Metabolic Panel 11/14/2017 [facility] Sodium 137 mmol/L Low 139-145 [address] [place] [address] [phone] Potassium 4.0 mmol/L N 3.5-5.0 Chloride 101 [...] Egfr Non- 105.5 >60 Egfr 135.7 >60 12 Comp Metabolic Panel 01/01/2015 [facility] Sodium 136 mmol/L N 133-145 13 [address] [place] [address] [phone] Potassium 4.3 mmol/L N 3.5-5.0 Chloride 102 [...] 136.9 N >60 14 Lipid Profile 01/01/2015 [facility] Triglycerides 101 mg/dL N 15 (Trig/Chol/HDL) [address] [place] [address] [phone] Cholesterol 269 mg/dL N 16 HDL Cholesterol 72.8 mg/dL N 17 LDL Cholesterol 176 mg/dL N 18 Laboratory test 01/01/2015 [facility] Vitamin D 39.1 ng/mL N 30-[address] Total 25(Oh) [place] [address] [phone] Urinalysis 07/08/2013 [facility] Urine Color Yellow [address] [place] [address] [phone] Urine Appearance Clear Urine Specific Humble 1.011 1.010-1.030 Urine Esterase 2+ Abnormal Negative Urine Nitrate Negative Negative Urine Urobilinogen Negative E.U./dL Negative Urine Protein Negative mg/dL Negative Urine pH 6.5 5-9 Urine Blood Negative Negative Urine Ketones Trace mg/dL Abnormal Negative Urine Bilirubin Negative Negative Urine Glucose Negative mg/dL Negative Urine Microscopic 07/08/2013 [facility] Urine WBC 1+ (<[address] /hpf) [place] [address] [phone] Urine RBC 1+ (<3 /hpf) None Seen Urine Epithelial Cells 1+ Squamous /hpf None Seen Bacteria Urine 1+ None Seen Urine Culture And 07/08/2013 [facility] Urine Culture (SEE NOTE ) [address] [place] [address] [phone] CBC Auto Diff 07/08/2013 [facility] White Blood 3.7 Low 4.8-[address] Count 10^3/uL 0.8 [place] [address] [phone] Red Blood Count 3.97 10^6/uL Low 4.0-5.4 [...] 0-2 Nucleated Red Blood Cells % 0.1 Inr/Protime 07/08/2013 [facility] Inr 0.93 0.85-1.[address] [place] [address] [phone] Laboratory test 07/08/2013 [facility] Activated 27.9 24.0- 36.1 [address] [place] [address] Thrombo Time [phone] Comp Metabolic 07/08/2013 [facility] Sodium 133 mmol/L 133- [address] [place] [address] [phone] Potassium 3.9 mmol/L 3.5-5.0 Chloride 101 mmol/L [...] Egfr Non- 121.6 >60 Egfr 156.4 >60 22 Laboratory test 07/08/2013 [facility] Troponin I 0 ng/mL 0- 0.06 [address] [place] [address] [phone] CBC Auto Diff 07/03/2013 [facility] White Blood 8.1 4.8-10.[address] Count 10^3/[place] [address] [phone] Red Blood Count 4.24 10^6/uL 4.0-5.4 Hemoglobin [...] Cells % 0 Comp Metabolic Panel 07/03/2013 [facility] Sodium 135 mmol/L 133-[address] [place] [address] [phone] Potassium 3.7 mmol/L 3.5-5.0 Chloride 102 mmol/L [...] Egfr 156.4 >60 24 Laboratory test 07/03/2013 [facility] Troponin I 0 ng/mL 0- 0.06 25 finding [address] [place] [address] [phone] Laboratory test 07/11/2012 [facility] TSH (Thyroid 3.78 0.34- 5.60 finding 101 [facility] Stimulating Horm) MIU/[place] [address] [phone] Lipid Profile 07/11/2012 [facility] Triglycerides 101 mg/dL 40-200 (Trig/Chol/HDL) [address] [place] [address] [phone] Cholesterol 276 mg/dL High Less than 200 HDL Cholesterol 68 mg/dL High 40-60 26 Cholesterol/HDL Ratio 4.1 Average 1-4.44 LDL Cholesterol 187.8 mg/dL High Less Than 100 27 Comp Metabolic Panel 07/11/2012 [facility] Sodium 135 mmol/L 133-145 [address] [place] [address] [phone] Potassium 3.5 mmol/L 3.5-5.0 Chloride 103 mmol/L [...] Non- 122.0 >60 Egfr 156.9 >60 28 Vitamin D, 25 07/11/2012 [facility] 25-Hydroxy Vitamin <4.0 ng/ mL Hydroxy [address] D2 [place] [address] [phone] 25-Hydroxy Vitamin D3 43 ng/mL 25-Hydroxy Vitamin D Total 43 ng/mL 29 Vitamin D 1,25 07/11/2012 [facility] Vitamin D 66 pg/mL 18- 78 30 And Vitamin 101 [facility] 1,25-Dihydroxy D,2 [place] [address] [phone] Ua Routine 07/04/2012 [facility] Ua Specific Humble 1.005 Ua PH 7 Ua Color he Ua Appera clear Ua WBC trace Ua Protein neg Ua Glucose neg Ua Ketones neg Ua Bilirubin neg Ua Urobilinogen neg Ua Nitrite neg Ua Occult Blood neg Urine Culture And 06/28/2012 [facility] Urine Culture (SEE NOTE ) 31 Sensitivities [address] [place] [address] [phone] Ua Routine 06/28/2012 [facility] In House Ua Specific 1.000 Humble Ua PH 5 Ua Color pale Ua Appera clear Ua WBC small Ua Protein neg Ua Glucose neg Ua Ketones neg Ua Bilirubin neg Ua Urobilinogen neg Ua Nitrite neg Ua Occult Blood Non hem trace Laboratory test 05/12/2011 [facility] TSH 4.59 MIU/ML 0.34- 5.60 finding [address] [place] [address] [phone] Lipid Profile 05/12/2011 [facility] Triglyceride 157 mg/dL 40 -200 (Trig/Chol/HDL) [address] [place] [address] [phone] Cholesterol 283 mg/dL High Less Than 200 32 High Density Lipoprotein 69 mg/dL High 40-60 33 Cholesterol/HDL Ratio 4.10 AVERAGE 1-4.44 Low Density Lipoprotein 183 mg/dL High Less Than 100 34 Comp Metabolic Panel 05/12/2011 [facility] Sodium 135 mmol/L 135-145 [address] [place] [address] [phone] Potassium 4.2 mmol/L 3.5-5.0 Chloride 100 mmol/L Low 101-111 Co2 (Carbon Dioxide) 30.0 mmol/L 22-32 Anion Gap 5.0 mmol/L 2-11 35 Glucose 99 mg/dL 70-100 BUN 8 mg/dL 6-24 Creatinine 0.5 mg/dL Low 0.50-1.40 One Over Creatinine 2.00 BUN/Creatinine Ratio 16.0 8-20 Calcium 9.3 mg/dL 8.1-9.9 Total Protein 7.0 GM/DL 6.2-8.1 Albumin 4.2 GM/DL 3.2-5.2 Globulin 2.8 GM/DL 2-4 Albumin/Globulin Ratio 1.5 1-3 Bilirubin Total 0.9 mg/dL 0.4-1.5 36 Alkaline Phosphatase 80 U/L 30-110 Alt (SGPT) 19 U/L 14-54 Ast (Sgot) 23 U/L 12-42 eGFR Non- 122.3 > 60 eGFR 157.3 > 60 37 1 Because ethnic data is not [...] 130-159 High: 160-189 Very High: >189 7 FASTING 10 HOUR 8 Desirable: <150 Borderline High: 150-199 High: 200-499 Very High: >500 9 Desirable: <200 Borderline High: 200-239 High: >239 10 Low: <40 Desirable: 40-60 High: >60 11 Desirable: <100 Near Optimal: 100-129 Borderline High: 130-159 High: 160-189 Very High: >189 12 Because ethnic data is not always readily [...] 15-29 5 Kidney failure <15 (or dialysis) 13 PT IS FASTING 14 Because ethnic [...] 160-189 mg/dL Very High: >189 mg/dL 19 RUN DATE: 07/10/13 [facility] LAB LIVE PAGE 1 RUN TIME: [address] [place] [address] Specimen Inquiry Name: PRO VO : [address]: Giovanny Velázquez DO Acct: [id number] Unit: [id number] AGE: 73 Location: ED Re07/08/13 SEX: F Status: DEP ER SPEC: [id number] RANJANA: 07/08/13-5 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 Director [place] [employer] Permit #[id number] 20 Please note the change in the INR reference range effective 13. 21 Please note the change in the PTT reference range effective 13. 22 Because ethnic data is not always readily [...] 15-29 5 Kidney failure <15 (or dialysis) 23 Reference Range and Interpretation: TnI (ng/mL) Interpretation Less Than 0.06 ng/mL Not supportive of diagnosis of AL 0.06 - 0.50 ng/mL Indeterminate: suggest serial studies if clinically indicated. Greater than 0.5 ng/mL Consistent with diagnosis of AL 24 Because ethnic data is not always [...] 0.06 ng/mL Not supportive of diagnosis of AL 0.06 - 0.50 ng/mL Indeterminate: suggest serial studies if clinically indicated. Greater than 0.5 ng/mL Consistent with diagnosis of AL 26 HDL Interpretation: Undesirable: High Risk: Less than 40 MG/DL Desirable: Low Risk: Greater than 60 MG/DL 27 LDL Interpretation: Low Risk Optimal Level: LDL Less than 100 MG/DL Near or Above Optimal: LDL 100-129 MG/DL Borderline High Risk: LDL 130-159 MG/DL High Risk: LDL 160-189 MG/DL Very High Risk: LDL Greater than 189 MG/DL 28 Because ethnic data is not always [...] 5 Kidney failure <15 (or dialysis) 29 -- REFERENCE VALUE -- 25-HYDROXY D TOTAL (D2+D3) Optimum levels in the normal population are 25-80 Test Performed by: [place] [address] [employer]: Miguel Ahn III, M.D. 30 Test Performed by: [address] [address] [employer]: Miguel Ahn III, M.D. 31 RUN DATE: 06/30/12 [facility] LAB LIVE PAGE 1 RUN TIME: [address] [place] [address] Specimen Inquiry Name: PRO VO : [address]: Quynh Rosenbaum MD Acct: [id number] Unit: [id number] AGE: 72 Location: [facility] Re06/28/12 SEX: F Status: REG REF SPEC: [id number] RANJANA: 06/28/12-[address]: Quynh Rosenbaum MD REQ: [id number] RECD: 06/28/12 STATUS: COMP _ SOURCE: URINE SPDESC: ORDERED: Urine Culture QUERIES: Medent Number [id number] Procedure Result Verified Site Urine Culture Final 06/30/12- 1109 ML Organism 1 NORMAL CALE [place] Count 1-10,000 (Few) CFU/ML END OF REPORT * ML=Testing performed at Main Lab DEPARTMENT OF PATHOLOGY, [address] [place] [address] Ted Alaniz M.D. Director [facility] Permit #[id number] 32 CHOLESTEROL INTERPRETATION: Desirable: Less than 200 MG/DL Borderline-High Risk: 200-239 MG/DL High-Risk: 240 MG/DL and over 33 HDL INTERPRETATION: Undesirable: High Risk: Less than 40 MG/DL Desirable: Low Risk: Greater than 60 MG/DL 34 LDL INTERPRETATION: Low Risk Optimal Level: LDL Less than 100 MG/DL Near or Above Optimal: LDL 100-129 MG/DL Borderline High Risk: LDL 130-159 MG/DL High Risk: LDL 160-189 MG/DL Very High Risk: LDL Greater than 189 MG/DL 35 Anion gap measurement may be of limited value in the presence of any alkalosis, especially in a combined acid base disorder. . 36 A metabolite of Naproxen, O-desmethylnaproxen, has been shown to interfere with the Jendrassik-Haring method for measuring total bilirubin. Samples from patients who have taken Naproxen have shown spurious elevation in total bilirubin levels. 37 Because ethnic data is not always readily [...] 15-29 5 Kidney failure <15 (or dialysis) Procedures Date Code Description Status 08/31/2018 13280 Color Flow Doppler/Interp & Reprt Completed 08/31/2018 07245 Pulse Wave/Continuous-Interp.RPT Completed 08/31/2018 66278 Echocardiography, Transesophageal, Real Time W/Image Completed 2D W/W/O M-M 08/31/2018 45418 Cardioversion Completed 08/30/2018 03099 ECHO Transthoracic, Real-Time 2D With Doppler And Completed Color Flow 08/30/2018 92364 ECHO Transthoracic, Real-Time 2D With Doppler And Completed Color Flow 08/30/2018 75990 ECHO Transthoracic, Real-Time 2D With Doppler And Completed Color Flow 08/30/2018 44313 EKG Tracing & Interpretation Completed 08/29/2018 84979 EKG Tracing & Interpretation Completed 05/25/2018 61303 Inject/Drain Joint/Bursa Major W/O US Completed 05/25/2018 [id number] Mammogram Completed 12/25/2015 [id number] Mammogram Completed 09/15/2014 069055870 Bone Mineral Density Test Completed 04/24/2014 [id number] Colonoscopy Completed 07/11/2012 [id number] Bone Mineral Density Test Completed 07/11/2012 10275313 Mammogram Completed 05/20/2011 12875380 Mammogram Completed 04/27/2011 32926 EKG Tracing & Interpretation Completed 05/06/2010 86156206 Mammogram Completed 05/06/2010 112721633 Bone Mineral Density Test Completed 10/10/2008 18840 EKG Tracing & Interpretation Completed Encounters Type Date Location Provider Dx Diagnosis Office Visit 08/29/2018 [facility] Sarai Ivy, I1Larisa Essential (primary ) 11:40a Medicine - N.P. hypertension [place] I48.1 Persistent atrial fibrillation Office Visit 05/25/2018 Orthopedic Judah Segura, M19.011 Primary 11:30a Services Of osteoarthritis, C.M.A. right shoulder M75.121 Complete rotatr-cuff tear/ruptr of r shoulder, not trauma Office Visit 11/17/2017 10:20a [facility] Sarai Ivy, I10 Essential ( primary) Medicine - N.P. hypertension [place] G25.0 Essential tremor Office Visit 10/17/2017 9:30a Orthopedic Judah Segura M75.122 Complete Services Of rotatr-cuff C.M.A. tear/ruptr of left shoulder, not trauma Office Visit 10/03/2017 9:00a [facility] Judah Segura, M25.512 Pain in left Services Of MD zhanna Spangler S46.012A Strain of musc/tend the rotator cuff of left shoulder, init Office Visit 01/16/2017 4:00p [facility] Internal Sarai Ivy, R43.0 Anosmia Medicine - N.P. [place] Office Visit 07/21/2015 10:20a [facility] Internal Sarai Ivy, M54.5 Low back pain Medicine - N.P. [place] Office Visit 05/23/2014 11:20a [facility] Internal Sarai Ivy, V72.84 Examination Medicine - N.P. Preoperative [place] Unspec 401.1 Hypertension Benign 366.9 Cataract Unspec Office Visit 02/26/2014 3:00p [facility] Internal Sarai Ivy, 724.1 Pain Thoracic Medicine - N.P. Spine [place] 401.1 Hypertension Benign Office Visit 11/08/2013 2:40p [facility] Internal Sarai Ivy, 053.10 Herpes Zoster Medicine - N.P. 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 General Medical [place] Routine AT Health Care Facility 401.1 Hypertension Benign 726.19 Shoulder Disorders Other Spec Office Visit 07/09/2013 4:20p [facility] Internal Sarai Ivy, 386.11 Vertigo Benign Medicine - N.P. Paroxysmal [place] Position Office Visit 06/28/2012 2:20p [facility] Internal Quynh Rosenbaum, 788.1 Dysuria Medicine - M.D., FACP [place] Office Visit 09/09/2011 4:00p [facility] Internal Sarai Ivy, 729.5 Pain In Limb Medicine - N.P. [place] Office Visit 05/27/2011 2:00p DO Not Use Sarai Varn, 401.1 Hypertension [facility] N.P. Benign 272.4 Hyperlipidemia Other Unspec Office Visit 04/27/2011 DO Not Use Sarai Varn, V70.0 Examination 3:00p [facility] N.P. General Medical Routine AT Health Care Facility 401.1 Hypertension Benign 733.90 Bone & Cartilage Disorder Unspec V76.10 Screening For Malignant Neoplasm Breast Office Visit 10/25/2010 DO Not Use Sarai Varn, 401.1 Hypertension 3:00p [facility] N.P. Benign 719.49 Pain Joint Multiple Sites Office Visit 04/26/2010 DO Not Use Sarai Varn, V70.0 Examination 3:00p [facility] N.P. General Medical Routine AT Health Care Facility V76.2 Screening Malignant Neoplasm Cervix 401.1 Hypertension Benign 715.90 Osteoarthrosis Unspec Genlzd Or Localized Site Unspec 627.3 Atrophic Vaginitis Postmenopausal 724.2 Lumbago V72.31 Routine [employer] Supervisor Examination Office Visit 03/30/2010 DO Not Use Qunyh Ilsa, 599.0 UTI Urinary Tract 2:30p [facility]Jim[facility] Morejon, FACP Infection Site Not Spec Office Visit 08/18/2009 DO Not Use Sarai 401.1 Hypertension Benign 3:30p [facility] Varn, N.P. Office Visit 12/10/2008 DO Not Use Sarai 709.9 Skin & Subcutaneous 9:30a [facility] Varn, N.P. Tissue Disorders Unspec Office Visit 10/10/2008 DO Not Use Sarai 401.1 Hypertension Benign 2:00p [facility] Varn, N.P. Office Visit 05/18/2007 DO Not Use Sarai 110.5 Dermatophytosis Body 10:45a [facility] Varn, N.P. Office Visit 04/25/2007 DO Not Use Sarai 796.2 Blood Pressure 3:45p [facility] Varn, N.P. Reading Elevated W/O Hypertension 272.4 Hyperlipidemia Other Unspec Office Visit 04/11/2007 DO Not Use Sarai Varn, V72.31 Routine [employer] Supervisor 2:00p [employer] N.P. Examination Plan of Treatment Future Appointment(s):09/13/2018 11:00 am - Yessy Andersen N.P. at [facility]05/27/2019 9:20 am - Sarai Ivy N.P. at [facility] Internal Medicine - [id number]/25/2019 9:40 am - Sarai Ivy N.P. 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
--- OUTSIDE RECORDS SUMMARY | 2018-09-21 20:57 | XMS REPORT | Continuity of Care Document ---
:1940 External Reference #:[id number] Author Name Tashia Villegase Care Team Providers Name Role Phone Soni Musa MD Primary Care Physician Unavailable Payers Type Date Identification Numbers Payment Provider Subscriber Effective: Policy Number: [id number] Medicare Pro Vo 2009 PayID: [id number] [address] [place] [address] Effective: 2009 Policy Number: [id number] [employer] Pro Vo PayID: [id number] [address] [place] [address] Advance Directives Type Date Description Status Comment Other Directive 03/31/2017 [facility] Care Proxy Current and Verified Problems Date Description Provider Status Onset: 04/27/2011 Benign essential hypertension Sarai Ivy, N.P. Active Onset: 04/27/2011 Basal Cell Carcinoma Skin Of Other & Sarai Ivy, N.P. Active Unspecified Parts Of Face Onset: 12/22/2015 Essential hypertension Sarai Ivy, N.P. 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 Tobacco Use Start: Unknown Never Smoked Cigarettes Smoking Status Reviewed: 08/30/18 Never Smoked Cigarettes ETOH Use Currently consumes alcohol 6 - 8 per week Tobacco Use Start: Unknown Patient has never smoked Recreational Drug Use Denies Drug Use Recreational Drug Use Never Used Drugs Exercise Type/Frequency Exercises regularly Daily Allergies, Adverse Reactions, Alerts Date Description Reaction Status Severity Comments 03/30/2010 No Known Drug Allergy Active Medications Medication Date Status Form Strength Qnty SIG Indications Ordering Provider Advil PM Active Tablets 200-38mg 30tab 1 po q hs Unknown /0000 s prn Aleve Active Capsules 220mg 60cap 1 po bid Unknown /0000 s prn Centrum Silver Active Tablets 1 by mouth Unknown Ultra Womens /0000 every day Glucosamine Active Capsules 1500Com take one Unknown Chondroitin 1500 / capsule/ta Complex Maximum blet daily Strength by mouth Hazen 3 Active Capsules 1000mg 1 by mouth Unknown /0000 qd. Coq10 Active Capsules 400mg 1 by mouth Unknown /0000 every day Vitamin D-3 Active Capsules 1000Unit 1 by mouth Unknown /0000 every day Vitamin E-400 Active Capsules 400Unit 1 by mouth Unknown /0000 Caltrate 600+D3 Active Chewtabs 600-800mg 1 by mouth Unknown Soft /0000 -Unit every day Xarelto Active Tablets 15mg 2 by mouth Unknown /0000 every day Pt switching to 20 mg after 21 days Clotrimazole 12/21 Hx Yuri 10mg 70uni use [...] s every 6 Ilsa, - hours as Darleen FACP 02/26 needed Meclizine HCL 07/09 Hx Tablets 25mg 30tab 1 tablet 386.11 s every 8 Varn, N.P. - hours 02/26 Cipro 06/28 Hx Tablets 250mg 6tabs 1 Twice 788.1 Daily Ilsa, - M.D., FACP 07/04 Pyridium 06/28 Hx Tablets 200mg 1tabs 1 as 788.1 needed Ilsa, - every 6 M.D., FACP Ramipril 05/27 Hx Capsules 5mg 90cap Take 1 I10 s Capsule By Varpraful, N.P. - Mouth 08/30 Daily /2018 Losartan 04/27 Hx Tablets 50-12.5mg 30tab 1 po qd 401.1 Quynh Potassium/Hydroc s Ilsa, orothiazide - M.D., FACP 09/09 Hydrochlorothiazid 09/20 Hx Tablets 25mg 90tab Take One s Tablet By Cotton, - Mouth M.D. 04/27 Every Ciprofloxacin HCL 03/30 Hx 250mg 6unit 1 tab s twice Ilsa, - daily M.D., FACP 04/02 HCTZ Hx 25mg. 90uni 1 tablet Quynh ts daily Ilsa, - M.D., FACP 10/25 Potassium Hx Tablets 99mg once a day Unknown / - 05/24 Medications Administered in Office Medication Date Status Form Strength Qnty SIG Indications Ordering Provider Triamcinolone 05/25/ Injection Zaneb (Kenalog) 2017 MD Imelda Immunizations CPT Code Status Date Vaccine Lot # [id number] Given 04/13/2018 Influenza Virus Vaccine, Quadrivalent, Split, Preservative Free [id number] Given 12/22/2015 Pneumonia Vaccine [id number] 42057 Given 12/22/2015 Tdap - Tetanus/Diptheria/Acellular Pertussis 4 [id number] Given 08/29/2014 Zoster (Zostavax) [id number] 06140 Given 08/29/2014 Pneumococcal Conjugate Vaccine 13 Valent For [id number] Intramuscular Use Vital Signs Date Vital Result [...] Test Result H/L Range Note Order 08/29/2018 [facility] EKG <pending> Laboratory test 08/29/2018 [facility] [place] TSH 2.17 mcIU/mL N 0.34- 5.[address] ([place] [address] Stim Horm) [phone] Magnesium 2.1 mg/dL N 1.9-2.7 CBC Auto Diff 08/29/2018 [facility] White Blood 5.4 10^3/uL N 3.5-10.[address] [place] [address] [phone] Red Blood Count 4.14 10^6/uL N 4.00-5.40 [...] Cells % 0 Comp Metabolic Panel 08/29/2018 [facility] [place] Sodium 135 mmol/L N 135-[address] [place] [address] [phone] Potassium 4.1 mmol/L N 3.5-5.0 Chloride 100 [...] Non- 105.3 >60 Egfr 127.4 >60 1 Comp Metabolic Panel 05/28/2018 [facility] [place] Sodium 136 mmol/L N 135-[address] [place] [address] [phone] Potassium 4.1 mmol/L N 3.5-5.0 Chloride 101 [...] Egfr 119.9 >60 2 Lipid Profile 05/28/2018 [facility] Triglycerides 87 mg/dL 3 (Trig/Chol/HDL) [address] [place] [address] [phone] Cholesterol 225 mg/dL 4 HDL Cholesterol 73.4 mg/dL 5 LDL Cholesterol 134 mg/dL 6 Laboratory test 11/14/2017 [facility] Vitamin D Total 46.2 ng/ mL N 20-50 7 finding 101 [facility] 25(Oh) [place] [address] [phone] Lipid Profile 11/14/2017 [facility] Triglycerides 139 mg/dL 8 (Trig/Chol/HDL) [address] [place] [address] [phone] Cholesterol 255 mg/dL 9 HDL Cholesterol 66.6 mg/dL 10 LDL Cholesterol 161 mg/dL 11 Comp Metabolic Panel 11/14/2017 [facility] [place] Sodium 137 mmol/L Low 139-145 [address] [place] [address] [phone] Potassium 4.0 mmol/L N 3.5-5.0 Chloride 101 [...] 135.7 >60 12 Comp Metabolic Panel 01/01/2015 [facility] [place] Sodium 136 mmol/L N 133-[address] [place] [address] [phone] Potassium 4.3 mmol/L N 3.5-5.0 Chloride 102 [...] 136.9 N >60 14 Lipid Profile 01/01/2015 [facility] Triglycerides 101 mg/dL N 15 (Trig/Chol/HDL) [address] [place] [address] [phone] Cholesterol 269 mg/dL N 16 HDL Cholesterol 72.8 mg/dL N 17 LDL Cholesterol 176 mg/dL N 18 Laboratory test 01/01/2015 [facility] [place] Vitamin D 39.1 ng/mL N 30-[address] Total 25(Oh) [place] [address] [phone] Urinalysis 07/08/2013 [facility] [place] Urine Color Yellow [address] [place] [address] [phone] Urine Appearance Clear Urine Specific [place] 1.011 1.010-1.030 Urine Esterase 2+ Abnormal Negative Urine Nitrate Negative Negative Urine Urobilinogen Negative E.U./dL Negative Urine Protein Negative mg/dL Negative Urine pH 6.5 5-9 Urine Blood Negative Negative Urine Ketones Trace mg/dL Abnormal Negative Urine Bilirubin Negative Negative Urine Glucose Negative mg/dL Negative Urine Microscopic 07/08/2013 [facility] [place] Urine WBC 1+ (<10 None Seen [address] /hpf) [place] [address] [phone] Urine RBC 1+ (<3 /hpf) None Seen Urine Epithelial Cells 1+ Squamous /hpf None Seen Bacteria Urine 1+ None Seen Urine Culture And 07/08/2013 [facility] [place] Urine Culture (SEE NOTE ) [address] [place] [address] [phone] CBC Auto Diff 07/08/2013 [facility] [place] White Blood 3.7 Low 4.8-[address] Count 10^3/uL 0.8 [place] [address] [phone] Red Blood Count 3.97 10^6/uL Low 4.0-5.4 [...] Red Blood Cells % 0.1 Inr/Protime 07/08/2013 [facility] [place] Inr 0.93 0.85-1.[address] [place], [place] [address] [phone] Laboratory test 07/08/2013 [facility] [place] Activated 27.9 24.0- 36.1 [address] [place] [address] Thrombo Time [phone] Comp Metabolic 07/08/2013 [facility] [place] Sodium 133 mmol/L 133- [address] [place] [address] [phone] Potassium 3.9 mmol/L 3.5-5.0 Chloride 101 mmol/L [...] Egfr 156.4 >60 22 Laboratory test 07/08/2013 [facility] [place] Troponin I 0 ng/mL 0- 0.06 [address] [place] [address] [phone] CBC Auto Diff 07/03/2013 [facility] [place] White Blood 8.1 4.8-10.[address] Count 10^3/[place] [address] [phone] Red Blood Count 4.24 10^6/uL 4.0-5.4 Hemoglobin [...] Cells % 0 Comp Metabolic Panel 07/03/2013 [facility] [place] Sodium 135 mmol/L 133-145 [address] [place] [address] [phone] Potassium 3.7 mmol/L 3.5-5.0 Chloride 102 mmol/L [...] Egfr 156.4 >60 24 Laboratory test 07/03/2013 [facility] [place] Troponin I 0 ng/mL 0- 0.06 25 finding [address] [place] [address] [phone] Laboratory test 07/11/2012 [facility] [place] TSH (Thyroid 3.78 0.34- 5.[address] Stimulating Horm) MIU/[place] [address] [phone] Lipid Profile 07/11/2012 [facility] [place] Triglycerides 101 mg/dL 40-200 (Trig/Chol/HDL) [address] [place] [address] [phone] Cholesterol 276 mg/dL High Less than 200 HDL Cholesterol 68 mg/dL High 40-60 26 Cholesterol/HDL Ratio 4.1 Average 1-4.44 LDL Cholesterol 187.8 mg/dL High Less Than 100 27 Comp Metabolic Panel 07/11/2012 [facility] [place] Sodium 135 mmol/L 133-[address] [place] [address] [phone] Potassium 3.5 mmol/L 3.5-5.0 Chloride 103 mmol/L [...] 156.9 >60 28 Vitamin D, 25 07/11/2012 [facility] [place] 25-Hydroxy Vitamin <4.0 ng/ mL Hydroxy [address] [place] [address] [phone] 25-Hydroxy Vitamin D3 43 ng/mL 25-Hydroxy Vitamin D Total 43 ng/mL 29 Vitamin D 1,25 07/11/2012 [facility] [place] Vitamin D 66 pg/mL 18- 78 30 [address] Vitamin [address] 1,25-Dihydroxy D,2 [place] [address] [phone] Ua Routine 07/04/2012 [facility] Ua Specific [place] 1.005 Ua PH 7 Ua Color eh Ua Appera clear Ua WBC trace Ua Protein neg Ua Glucose neg Ua Ketones neg Ua Bilirubin neg Ua Urobilinogen neg Ua Nitrite neg Ua Occult Blood neg Urine Culture And 06/28/2012 [facility] [place] Urine Culture (SEE NOTE ) 31 Sensitivities [address] [place] [address] [phone] Ua Routine 06/28/2012 [facility] Ua Specific 1.000 [place] Ua PH 5 Ua Color pale Ua Appera clear Ua WBC small Ua Protein neg Ua Glucose neg Ua Ketones neg Ua Bilirubin neg Ua Urobilinogen neg Ua Nitrite neg Ua Occult Blood Non hem trace Laboratory test 05/12/2011 [facility] TSH 4.59 MIU/ML 0.34- 5.60 finding [address] [place] [address] [phone] Lipid Profile 05/12/2011 [facility] [place] Triglyceride 157 mg/dL 40 -200 (Trig/Chol/HDL) [address] [place] [address] [phone] Cholesterol 283 mg/dL High Less Than 200 32 High Density Lipoprotein 69 mg/dL High 40-60 33 Cholesterol/HDL Ratio 4.10 AVERAGE 1-4.44 Low Density Lipoprotein 183 mg/dL High Less Than 100 34 Comp Metabolic Panel 05/12/2011 [facility] Sodium 135 mmol/L 135-145 [address] [place] [address] [phone] Potassium 4.2 mmol/L 3.5-5.0 Chloride 100 mmol/L [...] High: >189 mg/dL 19 RUN DATE: 07/10/13 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 Director [facility] Permit #[id number] Please note the change in the [...] 0.06 ng/mL Not supportive of diagnosis of TN 0.06 - 0.50 ng/mL Indeterminate: suggest serial studies if clinically indicated. Greater than 0.5 ng/mL Consistent with diagnosis of TN 24 Because ethnic data is not always [...] 0.06 ng/mL Not supportive of diagnosis of TN 0.06 - 0.50 ng/mL Indeterminate: suggest serial studies if clinically indicated. Greater than 0.5 ng/mL Consistent with diagnosis of TN 26 HDL Interpretation: Undesirable: High Risk: Less [...] normal population are 25-80 Test Performed by: [address] [address] Master Certified Rv Technician: Miguel Ahn III, M.D. 30 Test Performed by: [facility] - [address] [address] Master Certified Rv Technician: Miguel Ahn III, M.D. 31 RUN DATE: 06/30/12 [facility] LAB LIVE PAGE 1 RUN TIME: [address] [place] [address] Specimen Inquiry Name: PRO VO : [address]: Quynh Rosenbaum MD Acct: [id number] Unit: [id number] AGE: 72 Location: [facility] Re06/28/12 SEX: F Status: REG REF SPEC: [id number] RANJANA: 06/28/12-[address]: Quynh Rosenbaum MD REQ: [id number] RECD: 06/28/120867 STATUS: COMP _ SOURCE: URINE SPDESC: ORDERED: Urine Culture QUERIES: Medent Number [id number] Procedure Result Verified Site Urine Culture Final 06/30/12- 1109 ML Organism 1 NORMAL CALE [place] Count 1-10,000 (Few) CFU/ML END OF REPORT * ML=Testing performed at Main Lab DEPARTMENT OF PATHOLOGY, [address] [place] [address] Ted Alaniz M.D. Director [facility] Permit #[id number] 32 CHOLESTEROL INTERPRETATION: Desirable: Less than 200 [...] (or dialysis) Procedures Date Code Description Status 08/30/2018 77276 EKG Tracing & Interpretation Completed 08/29/2018 44135 EKG Tracing & Interpretation Completed 05/25/2018 96006 Inject/Drain Joint/Bursa Major W/O US Completed 05/25/2018 [id number] Mammogram Completed 12/25/2015 [id number] Mammogram Completed 09/15/2014 [id number] Bone Mineral Density Test Completed 04/24/2014 31198967 Colonoscopy Completed 07/11/2012 [id number] Bone Mineral Density Test Completed 07/11/2012 [id number] Mammogram Completed 05/20/2011 [id number] Mammogram Completed 04/27/2011 24203 EKG Tracing & Interpretation Completed 05/06/2010 800509081 Bone Mineral Density Test Completed 05/06/2010 [id number] Mammogram Completed 10/10/2008 83516 EKG Tracing & Interpretation Completed Encounters Type Date Location Provider Dx Diagnosis Office Visit 05/25/2018 Orthopedic Judah Segura MD M19.011 Primary 11:30a [facility] osteoarthritis, right shoulder M75.121 Complete rotatr-cuff tear/ruptr of r shoulder, not trauma Office Visit 11/17/2017 10:20a [facility] Internal Sarai Ivy, I10 Essential ( primary) Medicine - N.P. hypertension [place] G25.0 Essential tremor Office Visit 10/17/2017 9:30a Orthopedic Judah Segura, M75.122 Complete Services Of rotatr-cuff C.M.A. tear/ruptr of left shoulder, not trauma Office Visit 10/03/2017 9:00a Orthopedic Judah Segura, M25.512 Pain in left Services Of shoulder C.M.A. S46.012A Strain of musc/tend the rotator cuff of left shoulder, init Office Visit 01/16/2017 4:00p [facility] Internal Sarai Ivy, R43.0 Anosmia Medicine - N.P. [place] Office Visit 07/21/2015 10:20a [facility] Internal Sarai Ivy, M54.5 Low back pain Medicine - N.P. [place] Office Visit 05/23/2014 11:20a [facility] Internal Sarai Ivy, V72.84 Examination Medicine - N.P. Preoperative [place] Unspec 401.1 Hypertension Benign 366.9 Cataract Unspec Office Visit 02/26/2014 3:00p [facility] Internal Sarai Ivy, 724.1 Pain Thoracic Medicine - N.P. Spine [place] 401.1 Hypertension Benign Office Visit 11/08/2013 2:40p [facility] Internal Sarai Ivy, 053.10 Herpes Zoster Medicine - N.P. 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 General Medical [place] Routine AT Health Care Facility 401.1 Hypertension Benign 726.19 Shoulder Disorders Other Spec Office Visit 07/09/2013 4:20p [facility] Internal Sarai Ivy, 386.11 Vertigo Benign Medicine - N.P. Paroxysmal [place] Position Office Visit 06/28/2012 2:20p [facility] Quynh Rosenbaum, 788.1 Dysuria Medicine - M.D., FACP [place] Office Visit 09/09/2011 4:00p [facility] Internal Sarai Varn, 729.5 Pain In Limb Medicine - N.P. [place] Office Visit 05/27/2011 2:00p DO Not Use Sarai Varn, 401.1 Hypertension [facility] N.P. Benign 272.4 Hyperlipidemia Other Unspec Office Visit 04/27/2011 DO Not Use Sarai Varn, V70.0 Examination 3:00p [facility] N.P. General Medical Routine AT Health Care Facility 401.1 Hypertension Benign 733.90 Bone & Cartilage Disorder Unspec V76.10 Screening For Malignant Neoplasm Breast Office Visit 10/25/2010 DO Not Use Sarai Varn, 401.1 Hypertension 3:00p [facility] N.P. Benign 719.49 Pain Joint Multiple Sites Office Visit 04/26/2010 DO Not Use Sarai Varn, V70.0 Examination 3:00p [facility] N.P. General Medical Routine AT Health Care Facility V76.2 Screening Malignant Neoplasm Cervix 401.1 Hypertension Benign 715.90 Osteoarthrosis Unspec Genlzd Or Localized Site Unspec 627.3 Atrophic Vaginitis Postmenopausal 724.2 Lumbago V72.31 Routine Guide Delegate Examination Office Visit 03/30/2010 DO Not Use Quynh Rosenbaum, 599.0 UTI Urinary Tract 2:30p Kelvin Morejon, FACP Infection Site Not Spec Office Visit 08/18/2009 DO Not Use Sarai 401.1 Hypertension Benign 3:30p [facility] Varn, N.P. Office Visit 12/10/2008 DO Not Use Sarai 709.9 Skin & Subcutaneous 9:30a [facility] Varn, N.P. Tissue Disorders Unspec Office Visit 10/10/2008 DO Not Use Sarai 401.1 Hypertension Benign 2:00p [facility] Varn, N.P. Office Visit 05/18/2007 DO Not Use Sarai 110.5 Dermatophytosis Body 10:45a [facility] Varn, N.P. Office Visit 04/25/2007 DO Not Use Sarai 796.2 Blood [facility]p [facility] Reading Elevated W/O Hypertension 272.4 Hyperlipidemia Other Unspec Office Visit 04/11/2007 DO Not Use Sarai Ivy V72.31 Routine Guide Delegate 2:00p Kelvin Dudley.PChalino Examination Plan of Treatment Future Appointment(s):05/27/2019 9:20 am - Sarai Ivy N.Felix at [facility] Internal [facility]11/22/2018 9:40 am - Sarai Ivy N.P. at [facility]
--- OUTSIDE RECORDS SUMMARY | 2018-09-21 20:57 | XMS REPORT | Continuity of Care Document ---
:1940 External Reference #:[id number] Author Name Gabbi Young Care Team Providers Name Role Phone Soni Musa MD Primary Care Physician Unavailable Payers Type Date Identification Numbers Payment Provider Subscriber Effective: Policy Number: [id number] Medicare Pro Vo 2009 PayID: [id number] [address] [place] [address] Effective: 2009 Policy Number: [id number] [employer] Pro Vo PayID: [id number] [address] [place] [address] Advance Directives Type Date Description Status Comment Other Directive 03/31/2017 [facility] Care Proxy Current and Verified Problems [...] Status Lives With Alone 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 Cardizem CD 08/30 Active Caps ER 120mg 30cap [...] mouth Unknown Soft /0000 -Unit every day Clotrimazole 12/21 Hx Yuri 10mg 70uni use [...] Ilsa, - hours as M.D., FACP 02/26 needed Meclizine HCL 07/09 Hx Tablets 25mg 30tab 1 tablet 386.11 s every 8 Varn, N.P. - hours 02/26 Cipro 06/28 Hx Tablets 250mg 6tabs 1 Twice 788.1 Daily Ilsa, - M.D., FACP 07/04 Pyridium 06/28 Hx Tablets 200mg 1tabs 1 as 788.1 needed Ilsa, - every 6 M.D., FACP 07/04 hours Ramipril 05/27 Hx Capsules 5mg 90cap Take 1 I10 s Capsule By Varn, N.P. - Mouth 08/30 Daily /2018 Losartan 04/27 Hx Tablets 50-12.5mg 30tab 1 po qd 401.1 Quynh Potassium/Hydroc s Ilsa, orothiazide - M.D., FACP 09/09 Hydrochlorothiazid 09/20 Hx Tablets 25mg 90tab Take One s Tablet By Cotton, - Mouth M.D. 04/27 Every Day /2010 Ciprofloxacin HCL 03/30 Hx 250mg 6unit 1 tab s twice Ilsa, - daily M.D., FACP 04/02 HCTZ Hx 25mg. 90uni 1 tablet Quynh / ts daily Ilsa, - M.D., [facility] 10/25 Advil PM Hx Tablets 200-38mg 30tab 1 po q hs Unknown /0000 s prn - 08/30 Aleve Hx Capsules 220mg 60cap 1 po bid Unknown /0000 s prn - 08/30 [place] 3 Hx Capsules 1000mg 1 by mouth Unknown /0000 qd. - 08/30 Potassium Hx Tablets 99mg once a day Unknown /0000 - 05/24 Xarelto Hx Tablets 15mg 2 by mouth Unknown /0000 every day - Pt 08/30 switching to 20 mg after 21 days Medications Administered in Office Medication Date Status Form Strength Qnty SIG Indications Ordering Provider Triamcinolone 05/25/ Administered Injection Zaneb (Kenalog) 2017 MD Imelda Immunizations CPT Code Status Date Vaccine Lot # [id number] Given 04/13/2018 Influenza Virus Vaccine, Quadrivalent, Split, Preservative Free [id number] Given 12/22/2015 Pneumonia Vaccine [id number] 18401 Given 12/22/2015 Tdap - Tetanus/Diptheria/Acellular Pertussis [id number] Given 08/29/2014 Zoster (Zostavax) [id number] 61597 Given 08/29/2014 Pneumococcal Conjugate Vaccine 13 Valent For [id number] Intramuscular Use Vital Signs Date Vital Result [...] Test Result H/L Range Note Order 08/29/2018 [facility] EKG <pending> CBC Auto Diff 08/29/2018 [facility] White Blood 5.4 10^3/uL N 3.5-10.[address] [place] [address] [phone] Red Blood Count 4.14 10^6/uL N 4.00-5.40 [...] Cells % 0 Comp Metabolic Panel 08/29/2018 [facility] Sodium 135 mmol/L N 135-145 [address] [place] [address] [phone] Potassium 4.1 mmol/L N 3.5-5.0 Chloride 100 [...] Egfr 127.4 >60 1 Laboratory test 08/29/2018 [facility] TSH (Thyroid 2.17 mcIU/mL N 0.34-5.[address] Stim Horm) [place] [address] [phone] Magnesium 2.1 mg/dL N 1.9-2.7 Comp Metabolic Panel 05/28/2018 [facility] Sodium 136 mmol/L N 135-145 [address] [place] [address] [phone] Potassium 4.1 mmol/L N 3.5-5.0 Chloride 101 [...] Egfr 119.9 >60 2 Lipid Profile 05/28/2018 [facility] Triglycerides 87 mg/dL 3 (Trig/Chol/HDL) [address] [place] [address] [phone] Cholesterol 225 mg/dL 4 HDL Cholesterol 73.4 mg/dL 5 LDL Cholesterol 134 mg/dL 6 Comp Metabolic Panel 11/14/2017 [facility] Sodium 137 mmol/L Low 139-145 [address] [place] [address] [phone] Potassium 4.0 mmol/L N 3.5-5.0 Chloride 101 [...] Egfr 135.7 >60 7 Lipid Profile 11/14/2017 [facility] Triglycerides 139 mg/dL 8 (Trig/Chol/HDL) [address] [place] [address] [phone] Cholesterol 255 mg/dL 9 HDL Cholesterol 66.6 mg/dL 10 LDL Cholesterol 161 mg/dL 11 Laboratory test 11/14/2017 [facility] Vitamin D 46.2 ng/mL N 20-50 [address] Total 25(Oh) [place] [address] [phone] Comp Metabolic 01/01/2015 [facility] Sodium 136 mmol/L N 133- 145 [address] [place] [address] [phone] Potassium 4.3 mmol/L N 3.5-5.0 Chloride 102 [...] 136.9 N >60 14 Lipid Profile 01/01/2015 [facility] Triglycerides 101 mg/dL N 15 (Trig/Chol/HDL) [address] [place] [address] [phone] Cholesterol 269 mg/dL N 16 HDL Cholesterol 72.8 mg/dL N 17 LDL Cholesterol 176 mg/dL N 18 Laboratory test 01/01/2015 [facility] Vitamin D 39.1 ng/mL N 30-[address] Total 25(Oh) [place] [address] [phone] Urine Microscopic 07/08/2013 [facility] Urine WBC 1+ (<10 None Seen [address] /hpf) [place] [address] [phone] Urine RBC 1+ (<3 /hpf) None Seen Urine Epithelial Cells 1+ Squamous /hpf None Seen Bacteria Urine 1+ None Seen Urine Culture And 07/08/2013 [facility] Urine Culture (SEE NOTE ) [address] [place] [address] [phone] CBC Auto Diff 07/08/2013 [facility] White Blood 3.7 Low 4.8-[address] Count 10^3/uL 0.8 [place] [address] [phone] Red Blood Count 3.97 10^6/uL Low 4.0-5.4 [...] Red Blood Cells % 0.1 Inr/Protime 07/08/2013 [facility] Inr 0.93 0.85-1.06 20 [address] [place] [address] [phone] Laboratory test 07/08/2013 [facility] Activated 27.9 24.0- 36.1 21 finding [address] [place] [address] Thrombo Time [phone] Comp Metabolic 07/08/2013 [facility] Sodium 133 mmol/L 133- 145 Panel [address] [place] [address] [phone] Potassium 3.9 mmol/L 3.5-5.0 Chloride 101 mmol/L [...] Egfr 156.4 >60 22 Laboratory test 07/08/2013 [facility] Troponin I 0 ng/mL 0- 0.06 23 finding [address] [place] [address] [phone] Urinalysis 07/08/2013 [facility] Urine Color Yellow [address] [place] [address] [phone] Urine Appearance Clear Urine Specific [place] 1.011 1.010-1.030 Urine Esterase 2+ Abnormal Negative Urine Nitrate Negative Negative Urine Urobilinogen Negative E.U./dL Negative Urine Protein Negative mg/dL Negative Urine pH 6.5 5-9 Urine Blood Negative Negative Urine Ketones Trace mg/dL Abnormal Negative Urine Bilirubin Negative Negative Urine Glucose Negative mg/dL Negative Comp Metabolic Panel 07/03/2013 [facility] Sodium 135 mmol/L 133-145 [address] [place] [address] [phone] Potassium 3.7 mmol/L 3.5-5.0 Chloride 102 mmol/L [...] Egfr 156.4 >60 24 Laboratory test 07/03/2013 [facility] Troponin I 0 ng/mL 0- 0.06 [address] [place] [address] [phone] CBC Auto Diff 07/03/2013 [facility] White Blood 8.1 4.8-10.[address] Count 10^3/[place] [address] [phone] Red Blood Count 4.24 10^6/uL 4.0-5.4 Hemoglobin [...] 0-2 Nucleated Red Blood Cells % 0 Vitamin D 07/11/2012 [facility] Vitamin D 66 pg/mL 18-78 26 1,[address] 1,25-Dihydroxy Vitamin D,2 [place] [address] [phone] Vitamin D, 25 07/11/2012 [facility] 25-Hydroxy Vitamin <4.0 ng/ mL Hydroxy [address] D2 [place] [address] [phone] 25-Hydroxy Vitamin D3 43 ng/mL 25-Hydroxy Vitamin D Total 43 ng/mL 27 Comp Metabolic Panel 07/11/2012 [facility] Sodium 135 mmol/L 133-[address] [place] [address] [phone] Potassium 3.5 mmol/L 3.5-5.0 Chloride 103 mmol/L [...] Egfr 156.9 >60 28 Lipid Profile 07/11/2012 [facility] Triglycerides 101 mg/dL 40-200 (Trig/Chol/HDL) [address] [place] [address] [phone] Cholesterol 276 mg/dL High Less than 200 HDL Cholesterol 68 mg/dL High 40-60 29 Cholesterol/HDL Ratio 4.1 Average 1-4.44 LDL Cholesterol 187.8 mg/dL High Less Than 100 30 Laboratory test 07/11/2012 [facility] TSH (Thyroid 3.78 0.34- 5.[address] Stimulating MIU/[place] [address] Horm) [phone] Ua Routine 07/04/2012 [facility] Ua Specific 1.005 [place]aver Ua PH 7 Ua Color eh Ua Appera clear Ua WBC trace Ua Protein neg Ua Glucose neg Ua Ketones neg Ua Bilirubin neg Ua Urobilinogen neg Ua Nitrite neg Ua Occult Blood neg Ua Routine 06/28/2012 [facility] Ua Specific Beaver 1.000 Ua PH 5 Ua Color pale Ua Appera clear Ua WBC small Ua Protein neg Ua Glucose neg Ua Ketones neg Ua Bilirubin neg Ua Urobilinogen neg Ua Nitrite neg Ua Occult Blood Non hem trace Urine Culture And 06/28/2012 [facility] Urine Culture (SEE NOTE ) [address] [place], [place] [phone] Comp Metabolic 05/12/2011 [facility] Sodium 135 mmol/L 135- [address] [place] [address] [phone] Potassium 4.2 mmol/L 3.5-5.0 Chloride 100 mmol/L [...] > 60 eGFR 157.3 > 60 34 Lipid Profile 05/12/2011 [facility] Triglyceride 157 mg/dL 40 -200 (Trig/Chol/HDL) [address] [place] [address] [phone] Cholesterol 283 mg/dL High Less Than 200 35 High Density Lipoprotein 69 mg/dL High 40-60 36 Cholesterol/HDL Ratio 4.10 AVERAGE 1-4.44 Low Density Lipoprotein 183 mg/dL High Less Than 100 37 Laboratory test 05/12/2011 [facility] TSH 4.59 MIU/ML 0.34- 5.60 finding [address] [place] [address] [phone] 1 Because ethnic data is not always [...] High: >189 mg/dL 19 RUN DATE: 07/10/13 [facility] LAB LIVE PAGE 1 RUN TIME: [address] [place] [address] Specimen Inquiry Name: PRO VO : [address]: Giovanny Velázquez DO Acct: [id number] Unit: [id number] AGE: 73 Location: ED Re07/08/13 SEX: F Status: DEP ER SPEC: [id number] RANJANA: 07/08/13-[address]: Raysa BENITEZ REQ: [id number] RECD: 07/08/13 STATUS: JATIN VILLA DR: [facility] Sarai Ivy SUPERVISOR LIQUID YEAST _ SOURCE: URINE SPDESC: ORDERED: Urine Culture Procedure Result Verified Site Urine Culture Final 07/10/13- 0900 ML No Growth Day 2 (<1,000 CFU/mL) END OF REPORT * ML=Testing performed at Main Lab DEPARTMENT OF PATHOLOGY, [address] [place] [address] Ted Alaniz M.D. Director [facility] Permit #[id number] 20 Please note the change in the [...] 0.06 ng/mL Not supportive of diagnosis of MO 0.06 - 0.50 ng/mL Indeterminate: suggest serial studies if clinically indicated. Greater than 0.5 ng/mL Consistent with diagnosis of MO 24 Because ethnic data is not always [...] 0.06 ng/mL Not supportive of diagnosis of MO 0.06 - 0.50 ng/mL Indeterminate: suggest serial studies if clinically indicated. Greater than 0.5 ng/mL Consistent with diagnosis of MO 26 Test Performed by: [place] [address] [employer]: Miguel Ahn III, M.D. 27 -- REFERENCE VALUE -- 25-HYDROXY D TOTAL (D2+D3) Optimum levels in the normal population are 25-80 Test Performed by: [place] [address] [employer]: Miguel Ahn III, M.D. 28 Because ethnic [...] than 189 MG/DL 31 RUN DATE: 06/30/12 [facility] LAB LIVE PAGE 1 RUN TIME: 1109 [address] [place], [place] [address] Specimen Inquiry Name: PRO VO : [address]: Quynh Rosenbaum MD Acct: [id number] Unit: [id number] AGE: 72 Location: [facility] Re06/28/12 SEX: F Status: REG REF SPEC: [id number] RANJANA: 06/28/121428 [facility] DR: Quynh Rosenbaum MD REQ: [id number] RECD: 06/28/12 STATUS: COMP _ SOURCE: URINE SPDESC: ORDERED: Urine Culture QUERIES: Medent Number [id number] Procedure Result Verified Site Urine Culture Final 06/30/12- 1109 ML Organism 1 NORMAL CALE [place] Count 1-10,000 (Few) CFU/ML END OF REPORT * ML=Testing performed at Main Lab DEPARTMENT OF PATHOLOGY, [address] [place] [address] Ted Alaniz M.D. Director [facility] Permit #[id number] 32 Anion gap measurement may be of [...] 189 MG/DL Procedures Date Code Description Status 08/30/2018 35004 EKG Tracing & Interpretation Completed 08/29/2018 60949 EKG Tracing & Interpretation Completed 05/25/2018 28940 Inject/Drain Joint/Bursa Major W/O US Completed 05/25/2018 [id number] Mammogram Completed 12/25/2015 [id number] Mammogram Completed 09/15/2014 [id number] Bone Mineral Density Test Completed 04/24/2014 [id number] Colonoscopy Completed 07/11/2012 [id number] Bone Mineral Density Test Completed 07/11/2012 [id number] Mammogram Completed 05/20/2011 [id number] Mammogram Completed 04/27/2011 52469 EKG Tracing & Interpretation Completed 05/06/2010 [id number] Bone Mineral Density Test Completed 05/06/2010 [id number] Mammogram Completed 10/10/2008 92605 EKG Tracing & Interpretation Completed Encounters Type Date Location Provider Dx Diagnosis Office Visit 05/25/2018 Orthopedic Judah Segura MD M19.011 Primary 11:30a [facility] osteoarthritis, right shoulder M75.121 Complete rotatr-cuff tear/ruptr of r shoulder, not trauma Office Visit 11/17/2017 10:20a [facility] Sarai Ivy I10 Essential ( primary) Medicine - N.P. hypertension Roberts G25.0 Essential tremor Office Visit 10/17/2017 9:30a Orthopedic Judah Segura M75.122 Complete Services Of rotatr-cuff C.M.A. tear/ruptr of left shoulder, not trauma Office Visit 10/03/2017 9:00a Orthopedic Judah Segura, M25.512 Pain in left Services Of shoulder [facility]. S46.012A Strain of musc/tend the rotator cuff of left shoulder, init Office Visit 01/16/2017 4:00p [facility] Sarai Ivy, R43.0 Anosmia Medicine - N.P. Roberts Office Visit 07/21/2015 10:20a [facility] Sarai Ivy M54.5 Low back pain Medicine - N.P. Roberts Office Visit 05/23/2014 11:20a [facility] Sarai Ivy V72.84 Examination Medicine - N.P. Preoperative Roberts Unspec 401.1 Hypertension Benign 366.9 Cataract Unspec Office Visit 02/26/2014 3:00p Theresa Ivy, 724.1 Pain Thoracic Medicine - N.P. Spine Roberts 401.1 Hypertension Benign Office Visit 11/08/2013 2:40p Theresa Ivy, 053.10 Herpes Zoster Medicine - N.P. 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 General Medical Roberts Routine AT Health Care Facility 401.1 Hypertension Benign 726.19 Shoulder Disorders Other Spec Office Visit 07/09/2013 4:20p [facility] Internal Sarai Ivy, 386.11 Vertigo Benign Medicine - N.P. Paroxysmal Roberts Position Office Visit 06/28/2012 2:20p [facility] Internal Quynh Rosenbaum, 788.1 Dysuria Medicine - M.D., FACP Roberts Office Visit 09/09/2011 4:00p [facility] Internal Sarai Ivy, 729.5 Pain In Limb Medicine - N.P. Roberts Office Visit 05/27/2011 2:00p DO Not Use Sarai Varn, 401.1 Hypertension Financial Consultant-Roberts N.P. Benign 272.4 Hyperlipidemia Other Unspec Office Visit 04/27/2011 DO Not Use Sarai Varn, V70.0 Examination 3:00p Financial Consultant-Roberts N.P. General Medical Routine AT Health Care Facility 401.1 Hypertension Benign 733.90 Bone & Cartilage Disorder Unspec V76.10 Screening For Malignant Neoplasm Breast Office Visit 10/25/2010 DO Not Use Sarai Varn, 401.1 Hypertension 3:00p [facility] Consultant-Roberts N.P. Benign 719.49 Pain Joint Multiple Sites Office Visit 04/26/2010 DO Not Use Sarai Varn, V70.0 Examination 3:00p Financial Consultant-Roberts N.P. General Medical Routine AT Health Care Facility V76.2 Screening Malignant Neoplasm Cervix 401.1 Hypertension Benign 715.90 Osteoarthrosis Unspec Genlzd Or Localized Site Unspec 627.3 Atrophic Vaginitis Postmenopausal 724.2 Lumbago V72.31 Routine Bomb Loader Examination Office Visit 03/30/2010 DO Not Use Quynh Rosenbaum, 599.0 UTI Urinary Tract 2:30p Financial Consultant-Jimmy Morejon, FACP Infection Site Not Spec Office Visit 08/18/2009 DO Not Use Sarai 401.1 Hypertension Benign 3:30p [facility]ant-[facility]ts Varn, N.P. Office Visit 12/10/2008 DO Not Use Sarai 709.9 Skin & Subcutaneous 9:30a [facility] Consultant-[facility]ts Varn, N.P. Tissue Disorders Unspec Office Visit 10/10/2008 DO Not Use Sarai 401.1 Hypertension Benign 2:00p [facility] Consultant-[facility]ts Varn, N.P. Office Visit 05/18/2007 DO Not Use Sarai 110.5 Dermatophytosis Body 10:45a [facility]ant-[facility]ts Varn, N.P. Office Visit 04/25/2007 DO Not Use Sarai 796.2 Blood Pressure 3:45p [facility] Consultant-[facility]ts Varn, N.P. Reading Elevated W/O Hypertension 272.4 Hyperlipidemia Other Unspec Office Visit 04/11/2007 DO Not Use Sarai Varn, V72.31 Routine Bomb Loader 2:00p Financial Consultant-Roberts N.P. Examination Plan of Treatment Future Appointment(s):08/31/2018 8:00 am - Mo Pe[facility] M.D. at [facility]05/27/2019 9:20 am - Sarai Varn, N.P. at [facility] Internal Medicine - [id number]/25/2019 9:40 am - Sarai Varn, N.P. at [facility] Internal Medicine - [id number]/31/2019 - Mo Peña M.D.I10 Essential (primary) [id number] Paroxysmal atrial fibrillationNew Orders:Transesophageal Echocardiogram With Cardioversion, Scheduled: 08/31/18Recommendations:reduced caffeine and alcohol which may be triggers for afib.R06.00 Dyspnea, unspecifiedFollow up:ov SUPERVISOR [employer]QU[employer] YEAST in 1-2 m ov JFM 2 mI34.0 Nonrheumatic mitral (valve) insufficiencyNew Orders:Echocardiogram, Ordered: 08/30/18
--- OUTSIDE RECORDS SUMMARY | 2018-09-21 20:58 | XMS REPORT | Continuity of Care Document ---
:1940 External Reference #:[id number] Author Name Chitra French Care Team Providers Name Role Phone Soni Musa MD Primary Care Physician Unavailable Payers Type Date Identification Numbers Payment Provider Subscriber Effective: Policy Number: [id number] Medicare Pro Vo 2009 PayID: [id number] [address] [place] [address] Effective: 2009 Policy Number: [id number] [employer] Pro Vo PayID: [id number] [address] [place] [address] Advance Directives Type Date Description Status Comment Other Directive 03/31/2017 [facility] Care Proxy Current and Verified Problems [...] Unknown Marital Status Lives With Alone 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 By Mouth Daily Advil PM Active Tablets 200-38mg 30tab 1 po q Unknown /0000 s hs prn Aleve Active Capsules 220mg 60cap 1 po bid Unknown /0000 s prn Centrum Silver Ultra Active Tablets 1 by Unknown Womens /0000 mouth every day Glucosamine Active Capsules 1500Com take one Unknown Chondroitin 1500 capsule/ Complex Maximum tablet Strength daily by mouth [place] 3 Active Capsules 1000mg 1 by Unknown /0000 mouth qd. Coq10 Active Capsules 400mg 1 by Unknown /0000 mouth every day Vitamin D-3 Active Capsules 1000Unit 1 by Unknown /0000 mouth every day Vitamin E-400 Active Capsules 400Unit 1 by Unknown /0000 mouth Caltrate 600+D3 Soft Active Chewtabs 600-800mg 1 by Unknown /0000 -Unit mouth every day Clotrimazole 12/21 Hx Yuri 10mg 70uni use 1 B37.0 ts yuri 5 Varn, N.P. - times 05/18 daily /2016 for 14 days Tramadol HCL 08/04 Hx Tablets 50mg 60tab 1 tablet s three to Varn, N.P. - four 12/21 daily as needed Vicodin 07/17 Hx Tablets 5-300mg 30tab take 1 s by mouth Varn, N.P. - every 6 08/04 hours needed Gabapentin 11/08 Hx Capsules 300mg 90cap 1 po tid 053.10 s Varn, N.P. - 02/26 Tramadol HCL 11/06 Hx Tablets 50mg 30tab one 733.6 s tablet Ilsa, - every 6 M.D., FACP 02/26 hours needed Meclizine HCL 07/09 Hx Tablets 25mg 30tab 1 tablet 386.11 s every 8 Varn, N.P. - hours 02/26 Cipro 06/28 Hx Tablets 250mg 6tabs 1 Twice 788.1 Daily Ilsa, - M.D., FACP 07/04 Pyridium 06/28 Hx Tablets 200mg 1tabs 1 as 788.1 needed Ilsa, - every 6 M.D., FACP Losartan 04/27 Hx Tablets 50-12.5mg 30tab 1 po qd 401.1 Quynh Potassium/ s Ilsa, othiazide - M.D., FACP 09/09 Hydrochlorothiazide 09/20 Hx Tablets 25mg 90tab Take One s Tablet Cotton, - By Mouth M.D. 04/27 Day Ciprofloxacin HCL 03/30 Hx 250mg 6unit 1 tab s twice Ilsa, - daily M.D., FACP 04/02 HCTZ Hx 25mg. 90uni 1 tablet Quynh / ts daily Ilsa, - M.D., FACP 10/25 Potassium Hx Tablets 99mg once a Unknown / day - 05/24 Medications Administered in Office Medication Date Status Form Strength Qnty SIG Indications Ordering Provider Triamcinolone 05/25/ Injection Zaneb (Kenalog) 2017 MD Imelda Immunizations CPT Code Status Date Vaccine Lot # [id number] Given 04/13/2018 Influenza Virus Vaccine, Quadrivalent, Split, Preservative Free [id number] Given 12/22/2015 Pneumonia Vaccine [id number] Given 12/22/2015 Tdap - Tetanus/Diptheria/Acellular Pertussis 4f [id number] Given 08/29/2014 Zoster (Zostavax) [id number] 28118 Given 08/29/2014 Pneumococcal Conjugate Vaccine 13 Valent For [id number] Intramuscular Use Vital Signs Date Vital Result Comment 08/29/2018 11:56am Height 64 inches 5'4" Weight [...] Test Result H/L Range Note Order 08/29/2018 [facility] In-House EKG <pending> Comp Metabolic Panel 05/28/2018 [facility] Sodium 136 mmol/L N 135-145 [address] [place] [address] [phone] Potassium 4.1 mmol/L N 3.5-5.0 Chloride 101 [...] Egfr Non- 99.1 >60 Egfr 119.9 >60 1 Lipid Profile 05/28/2018 [facility] Triglycerides 87 mg/dL 2 (Trig/Chol/HDL) [address] [place] [address] [phone] Cholesterol 225 mg/dL 3 HDL Cholesterol 73.4 mg/dL 4 LDL Cholesterol 134 mg/dL 5 Comp Metabolic Panel 11/14/2017 [facility] Sodium 137 mmol/L Low 139-145 [address] [place] [address] [phone] Potassium 4.0 mmol/L N 3.5-5.0 Chloride 101 [...] Egfr Non- 105.5 >60 Egfr 135.7 >60 6 Lipid Profile 11/14/2017 [facility] Triglycerides 139 mg/dL 7 (Trig/Chol/HDL) [address] [place] [address] [phone] Cholesterol 255 mg/dL 8 HDL Cholesterol 66.6 mg/dL 9 LDL Cholesterol 161 mg/dL 10 Laboratory test 11/14/2017 [facility] Vitamin D Total 46.2 ng/ mL N 20-50 [address]) [place] [address] [phone] Laboratory test 01/01/2015 [facility] Vitamin D Total 39.1 ng/ mL N 30-50 [address]) [place] [address] [phone] Lipid Profile 01/01/2015 [facility] Triglycerides 101 mg/dL N 13 (Trig/Chol/HDL) [address] [place] [address] [phone] Cholesterol 269 mg/dL N 14 HDL Cholesterol 72.8 mg/dL N 15 LDL Cholesterol 176 mg/dL N 16 Comp Metabolic Panel 01/01/2015 [facility] Sodium 136 mmol/L N 133-[address] [place] [address] [phone] Potassium 4.3 mmol/L N 3.5-5.0 Chloride 102 [...] 106.4 N >60 Egfr 136.9 N >60 17 Urinalysis 07/08/2013 [facility] Urine Color Yellow [address] [place] [address] [phone] Urine Appearance Clear Urine Specific [place] 1.011 1.010-1.030 Urine Esterase 2+ Abnormal Negative Urine Nitrate Negative Negative Urine Urobilinogen Negative E.U./dL Negative Urine Protein Negative mg/dL Negative Urine pH 6.5 5-9 Urine Blood Negative Negative Urine Ketones Trace mg/dL Abnormal Negative Urine Bilirubin Negative Negative Urine Glucose Negative mg/dL Negative Urine Microscopic 07/08/2013 [facility] Urine WBC 1+ (<[address] /hpf) [place] [address] [phone] Urine RBC 1+ (<3 /hpf) None Seen Urine Epithelial Cells 1+ Squamous /hpf None Seen Bacteria Urine 1+ None Seen Urine Culture And 07/08/2013 [facility] Urine Culture (SEE NOTE ) [address] [place] [address] [phone] CBC Auto Diff 07/08/2013 [facility] White Blood 3.7 Low 4.8-[address] Count 10^3/uL 0.8 [place] [address] [phone] Red Blood Count 3.97 10^6/uL Low 4.0-5.4 [...] Red Blood Cells % 0.1 Inr/Protime 07/08/2013 [facility] Inr 0.93 0.85-1.[address] [place] [address] [phone] Laboratory test 07/08/2013 [facility] Activated 27.9 24.0- 36.1 [address] [place] [place] [address] Thrombo Time [phone] Comp Metabolic 07/08/2013 [facility] Sodium 133 mmol/L 133- [address] [place] [address] [phone] Potassium 3.9 mmol/L 3.5-5.0 Chloride 101 mmol/L [...] Egfr 156.4 >60 21 Laboratory test 07/08/2013 [facility] Troponin I 0 ng/mL 0- 0.06 [address] [place] [address] [phone] CBC Auto Diff 07/03/2013 [facility] White Blood 8.1 4.8-10.[address] Count 10^3/[place] [address] [phone] Red Blood Count 4.24 10^6/uL 4.0-5.4 Hemoglobin [...] Cells % 0 Comp Metabolic Panel 07/03/2013 [facility] Sodium 135 mmol/L 133-[address] [place] [address] [phone] Potassium 3.7 mmol/L 3.5-5.0 Chloride 102 mmol/L [...] Egfr Non- 121.6 >60 Egfr 156.4 >60 23 Laboratory test 07/03/2013 [facility] Troponin I 0 ng/mL 0- 0.06 [address] [place] [address] [phone] Vitamin D 1,25 07/11/2012 [facility] Vitamin D 66 pg/mL 18- 78 25 And Vitamin D,[address] 1,[place] [address] [phone] Vitamin D, 25 07/11/2012 [facility] 25-Hydroxy <4.0 ng/mL Hydroxy [address] Vitamin D2 [place] [address] [phone] 25-Hydroxy Vitamin D3 43 ng/mL 25-Hydroxy Vitamin D Total 43 ng/mL 26 Comp Metabolic Panel 07/11/2012 [facility] Sodium 135 mmol/L 133-[address] [place] [address] [phone] Potassium 3.5 mmol/L 3.5-5.0 Chloride 103 mmol/L [...] Egfr Non- 122.0 >60 Egfr 156.9 >60 27 Lipid Profile 07/11/2012 [facility] Triglycerides 101 mg/dL 40-200 (Trig/Chol/HDL) [address] [place] [address] [phone] Cholesterol 276 mg/dL High Less than 200 HDL Cholesterol 68 mg/dL High 40-60 28 Cholesterol/HDL Ratio 4.1 Average 1-4.44 LDL Cholesterol 187.8 mg/dL High Less Than 100 29 Laboratory test 07/11/2012 [facility] TSH (Thyroid 3.78 0.34- 5.[address] Stimulating MIU/[place] [address] Horm) [phone] Ua Routine 07/04/2012 [facility] Ua Specific 1.005 [place] Ua PH 7 Ua Color eh Ua Appera clear Ua WBC trace Ua Protein neg Ua Glucose neg Ua Ketones neg Ua Bilirubin neg Ua Urobilinogen neg Ua Nitrite neg Ua Occult Blood neg Urine Culture And 06/28/2012 [facility] Urine Culture (SEE NOTE ) 30 [address] [place] [address] [phone] Ua Routine 06/28/2012 [facility] House Ua Specific 1.000 [place] Ua PH 5 Ua Color pale Ua Appera clear Ua WBC small Ua Protein neg Ua Glucose neg Ua Ketones neg Ua Bilirubin neg Ua Urobilinogen neg Ua Nitrite neg Ua Occult Blood Non hem trace Lipid Profile 05/12/2011 [facility] Triglyceride 157 mg/dL 40 -200 (Trig/Chol/HDL) [address] [place] [address] [phone] Cholesterol 283 mg/dL High Less Than 200 31 High Density Lipoprotein 69 mg/dL High 40-60 32 Cholesterol/HDL Ratio 4.10 AVERAGE 1-4.44 Low Density Lipoprotein 183 mg/dL High Less Than 100 33 Comp Metabolic Panel 05/12/2011 [facility] Sodium 135 mmol/L 135-[address] [place] [address] [phone] Potassium 4.2 mmol/L 3.5-5.0 Chloride 100 mmol/L Low 101-111 Co2 (Carbon Dioxide) 30.0 mmol/L 22-32 Anion Gap 5.0 mmol/L 2-11 34 Glucose 99 mg/dL 70-100 BUN 8 mg/dL 6-24 Creatinine 0.5 mg/dL Low 0.50-1.40 One Over Creatinine 2.00 BUN/Creatinine Ratio 16.0 8-20 Calcium 9.3 mg/dL 8.1-9.9 Total Protein 7.0 GM/DL 6.2-8.1 Albumin 4.2 GM/DL 3.2-5.2 Globulin 2.8 GM/DL 2-4 Albumin/Globulin Ratio 1.5 1-3 Bilirubin Total 0.9 mg/dL 0.4-1.5 35 Alkaline Phosphatase 80 U/L 30-110 Alt (SGPT) 19 U/L 14-54 Ast (Sgot) 23 U/L 12-42 eGFR Non- 122.3 > 60 eGFR 157.3 > 60 36 Laboratory test 05/12/2011 [facility] TSH 4.59 MIU/ML 0.34- 5.60 finding [address] [place] [address] [phone] 1 Because ethnic data is not always [...] 5 Kidney failure <15 (or dialysis) 2 Desirable: <150 Borderline High: 150-199 High: 200-499 Very High: >500 3 Desirable: <200 Borderline High: 200-239 High: >239 4 Low: <40 Desirable: 40-60 High: >60 5 Desirable: <100 Near Optimal: 100-129 Borderline High: 130-159 High: 160-189 Very High: >189 6 Because ethnic data is not always readily [...] 15-29 5 Kidney failure <15 (or dialysis) 7 Desirable: <150 Borderline High: 150-199 High: 200-499 Very High: >500 8 Desirable: <200 Borderline High: 200-239 High: >239 9 Low: <40 Desirable: 40-60 High: >60 10 Desirable: <100 Near Optimal: 100-129 Borderline High: 130-159 High: 160-189 Very High: >189 11 FASTING 10 HOUR 12 PT IS FASTING 13 Desirable <150 Borderline high 150-199 High 200-499 Very High >500 14 Desirable <200 Borderline high 200-239 High >239 15 Low <40 Desirable: 40-60 High: >60 16 Desirable: <100 mg/dL Near Optimal: 100-129 mg/dL Borderline High: 130-159 mg/dL High: 160-189 mg/dL Very High: >189 mg/dL 17 Because ethnic data is not always readily [...] 15-29 5 Kidney failure <15 (or dialysis) 18 RUN DATE: 07/10/13 [facility] LAB LIVE PAGE 1 RUN TIME: [address] [place] [address] Specimen Inquiry Name: PRO VO : [address]: Giovanny Velázquez DO Acct: [id number] Unit: [id number] AGE: 73 Location: ED Re07/08/13 SEX: F Status: DEP ER SPEC: [id number] RANJANA: 07/08/13-[address]: Raysa BENITEZ REQ: [id number] RECD: 07/08/13123 STATUS: JATIN VILLA DR: [facility] 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 Director [facility] Permit #[id number] Please note the change in the [...] 0.06 ng/mL Not supportive of diagnosis of DC 0.06 - 0.50 ng/mL Indeterminate: suggest serial studies if clinically indicated. Greater than 0.5 ng/mL Consistent with diagnosis of DC 23 Because ethnic data is not always readily [...] 15-29 5 Kidney failure <15 (or dialysis) 24 Reference Range and Interpretation: TnI (ng/mL) Interpretation Less Than 0.06 ng/mL Not supportive of diagnosis of DC 0.06 - 0.50 ng/mL Indeterminate: suggest serial studies if clinically indicated. Greater than 0.5 ng/mL Consistent with diagnosis of DC 25 Test Performed by: [place] [address] Leaf Coverer: Miguel Ahn III, M.D. 26 -- REFERENCE VALUE -- 25-HYDROXY D TOTAL (D2+D3) Optimum levels in the normal population are 25-80 Test Performed by: [place] [address] Leaf Coverer: Miguel Ahn III, M.D. 27 Because ethnic data is not always readily [...] 15-29 5 Kidney failure <15 (or dialysis) 28 HDL Interpretation: Undesirable: High Risk: Less than 40 MG/DL Desirable: Low Risk: Greater than 60 MG/DL 29 LDL Interpretation: Low Risk Optimal Level: LDL Less than 100 MG/DL Near or Above Optimal: LDL 100-129 MG/DL Borderline High Risk: LDL 130-159 MG/DL High Risk: LDL 160-189 MG/DL Very High Risk: LDL Greater than 189 MG/DL 30 RUN DATE: 06/30/12 [facility] LAB LIVE PAGE 1 RUN TIME: 1859 [address] [place], [place] [address] Specimen Inquiry Name: PRO VO : [address]: Quynh Rosenbaum MD Acct: [id number] Unit: [id number] AGE: 72 Location: [facility] Re06/28/12 SEX: F Status: REG REF SPEC: [id number] RANJANA: 06/28/12-[address] [facility] [address]: Ilsa SHIPMANQuynh REQ: [id number] RECD: 06/28/12 STATUS: COMP _ SOURCE: URINE SPDESC: ORDERED: Urine Culture QUERIES: Medent Number [id number] Procedure Result Verified Site Urine Culture Final 06/30/12- 1109 ML Organism 1 NORMAL CALE [place] Count 1-10,000 (Few) CFU/ML END OF REPORT * ML=Testing performed at Main Lab DEPARTMENT OF PATHOLOGY, [address] [place] [address] Ted Alaniz M.D. Director [facility] Permit #[id number] CHOLESTEROL INTERPRETATION: Desirable: Less than 200 MG/DL Borderline-High Risk: 200-239 MG/DL High-Risk: 240 MG/DL and over 32 HDL INTERPRETATION: Undesirable: High Risk: Less than 40 MG/DL Desirable: Low Risk: Greater than 60 MG/DL 33 LDL INTERPRETATION: Low Risk Optimal Level: LDL Less than 100 MG/DL Near or Above Optimal: LDL 100-129 MG/DL Borderline High Risk: LDL 130-159 MG/DL High Risk: LDL 160-189 MG/DL Very High Risk: LDL Greater than 189 MG/DL 34 Anion gap measurement may be of limited value in the presence of any alkalosis, especially in a combined acid base disorder. . 35 A metabolite of Naproxen, O-desmethylnaproxen, has been shown to interfere with the [place] method for measuring total bilirubin. Samples from patients who have taken Naproxen have shown spurious elevation in total bilirubin levels. 36 Because ethnic data is not always readily [...] (or dialysis) Procedures Date Code Description Status 08/29/2018 61392 EKG Tracing & Interpretation Completed 05/25/2018 22641 Inject/Drain Joint/Bursa Major W/O US Completed 05/25/2018 [id number] Mammogram Completed 12/25/2015 [id number] Mammogram Completed 09/15/2014 [id number] Bone Mineral Density Test Completed 04/24/2014 [id number] Colonoscopy Completed 07/11/2012 [id number] Bone Mineral Density Test Completed 07/11/2012 [id number] Mammogram Completed 05/20/2011 [id number] Mammogram Completed 04/27/2011 21360 EKG Tracing & Interpretation Completed 05/06/2010 172501705 Bone Mineral Density Test Completed 05/06/2010 [id number] Mammogram Completed 10/10/2008 25704 EKG Tracing & Interpretation Completed Encounters Type Date Location Provider Dx Diagnosis Office Visit 05/25/2018 Orthopedic Judah Segura MD M19.011 Primary 11:30a Services Of Anjel[facility]ino[facility]. osteoarthritis, right shoulder M75.121 Complete rotatr-cuff tear/ruptr of r shoulder, not trauma Office Visit 11/17/2017 10:20a [facility] Sarai Ivy, I10 Essential ( primary) Medicine - N.P. hypertension [place] G25.0 Essential tremor Office Visit 10/17/2017 9:30a Orthopedic Judah Segura M75.122 Complete Services Of rotatr-cuff C.M.A. tear/ruptr of left shoulder, not trauma Office Visit 10/03/2017 9:00a Orthopedic Judah Segura M25.512 Pain in left Services Of shoulder C.M.A. S46.012A Strain of musc/tend the rotator cuff of left shoulder, init Office Visit 01/16/2017 4:00p [facility] Sarai Ivy, R43.0 Anosmia Medicine - N.P. [place] Office Visit 07/21/2015 10:20a [facility] Sarai Ivy, M54.5 Low back pain Medicine - N.P. [place] Office Visit 05/23/2014 11:20a [facility] Sarai Ivy, V72.84 Examination Medicine - N.P. Preoperative [place] Unspec 401.1 Hypertension Benign 366.9 Cataract Unspec Office Visit 02/26/2014 3:00p [facility] Sarai Ivy, 724.1 Pain Thoracic Medicine - N.P. 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 General Medical [place] Routine AT Health Care Facility 401.1 Hypertension Benign 726.19 Shoulder Disorders Other Spec Office Visit 07/09/2013 4:20p [facility] Sarai Cata, 386.11 Vertigo Benign Medicine - N.P. Paroxysmal [place] Position Office Visit 06/28/2012 2:20p [facility] Quynh Rosenbaum, 788.1 Dysuria Medicine - M.D., FACP [place] Office Visit 09/09/2011 4:00p [facility] Sarai Cata, 729.5 Pain In Limb Medicine - N.P. [place] Office Visit 05/27/2011 2:00p DO Not Use Sarai Varn, 401.1 Hypertension Ambulance Assistant-[place] N.P. Benign 272.4 Hyperlipidemia Other Unspec Office Visit 04/27/2011 DO Not Use Sarai Varn, V70.0 Examination 3:00p Ambulance Assistant-[place] N.P. General Medical Routine AT Health Care Facility 401.1 Hypertension Benign 733.90 Bone & Cartilage Disorder Unspec V76.10 Screening For Malignant Neoplasm Breast Office Visit 10/25/2010 DO Not Use Sarai Varn, 401.1 Hypertension 3:00p Ambulance Assistant-[place] N.P. Benign 719.49 Pain Joint Multiple Sites Office Visit 04/26/2010 DO Not Use Sarai Varn, V70.0 Examination 3:00p [facility] Assistant-[place] N.P. General Medical Routine AT Health Care Facility V76.2 Screening Malignant Neoplasm Cervix 401.1 Hypertension Benign 715.90 Osteoarthrosis Unspec Genlzd Or Localized Site Unspec 627.3 Atrophic Vaginitis Postmenopausal 724.2 Lumbago V72.31 Routine Underground Roof Bolter Examination Office Visit 03/30/2010 DO Not Use Quynh Rosenbaum, 599.0 UTI Urinary Tract 2:30p Ambulance Assistant-Jimmy Morejon, FACP Infection Site Not Spec Office Visit 08/18/2009 DO Not Use Sarai 401.1 Hypertension Benign 3:30p [facility] Assistant[facility] Varn, N.P. Office Visit 12/10/2008 DO Not Use Sarai 709.9 Skin & Subcutaneous 9:30a [facility] Assistant[facility] Varn, N.P. Tissue Disorders Unspec Office Visit 10/10/2008 DO Not Use Sarai 401.1 Hypertension Benign 2:00p Ambulance Assistant[facility] Varn, N.P. Office Visit 05/18/2007 DO Not Use Sarai 110.5 Dermatophytosis Body 10:45a [facility]-Jimmy Varn, N.P. Office Visit 04/25/2007 DO Not Use Sarai 796.2 Blood Pressure 3:45p [facility]-Jimmy Vazquezn, N.P. Reading Elevated W/O Hypertension 272.4 Hyperlipidemia Other Unspec Office Visit 04/11/2007 DO Not Use Sarai Varn, V72.31 Routine Underground Roof Bolter 2:00p Ambulance Assistant[facility] N.P. Examination Plan of Treatment Future Appointment(s):05/27/2019 9:20 am - Sarai Ivy, N.P. at [facility] Medicine - Bxceghbhu21/25/2019 9:40 am - Sarai Ivy, N.P. at [facility]08/29/2018 - Sarai Ivy, N.P.I10 Essential (primary) hypertensionComments:Your blood pressure is in normal range.Continue with your current medication.I48.1 Persistent atrial fibrillationComments:Your heart is beating marla an irregular manner, you are in atrial fibrillation. It is important for us to help prevent stroke. I have started you on a blood thinner, Xarelto. Take 1 tablet twice daily for 21 days and then you will transition to 1 20 mg tablet daily. I am referring you to a deburrer, Dr Haney.Referral: Rodolfo Haney DO, [facility], Cardiovsclr Disease
--- OUTSIDE RECORDS SUMMARY | 2018-09-21 20:58 | XMS REPORT | Continuity of Care Document ---
:1940 External Reference #:[id number] Author Name YannickSofya zavala Care Team Providers Name Role Phone Soni Musa MD Primary Care Physician Unavailable Payers Type Date Identification Numbers Payment Provider Subscriber Effective: Policy Number: [id number] Medicare Pro Vo 2009 PayID: [id number] [address] [place] [address] Effective: 2009 Policy Number: [id number] [employer] Insurance Pro Vo PayID: [id number] [address] [place] [address] Advance Directives Type Date Description Status Comment Other Directive 03/31/2017 [facility] Care Proxy Current and Verified Problems Date [...] Unknown Marital Status Lives With Alone 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 04/27 Day Ciprofloxacin HCL 03/30 Hx 250mg 6unit 1 tab s twice Ilsa, - daily M.D., FACP 04/02 HCTZ Hx 25mg. 90uni 1 tablet Quynh / ts daily Ilsa, - M.D., FACP 10/25 Potassium Hx Tablets 99mg once a Unknown day - 05/24 Medications Administered in Office Medication Date Status Form Strength Qnty SIG Indications Ordering Provider Triamcinolone 05/25/ Administered Injection Zaneb (Kenalog) 2017 MD Imelda Immunizations CPT Code Status Date Vaccine Lot # [id number] Given 04/13/2018 Influenza Virus Vaccine, Quadrivalent, Split, Preservative Free [id number] Given 12/22/2015 Pneumonia Vaccine [id number] 11262 Given 12/22/2015 Tdap - Tetanus/Diptheria/Acellular Pertussis [id number] Given 08/29/2014 Zoster (Zostavax) [id number] 00249 Given 08/29/2014 Pneumococcal Conjugate Vaccine 13 Valent For [id number] Intramuscular Use Vital Signs Date Vital Result [...] Test Result H/L Range Note Order 08/29/2018 [facility] In-House EKG <pending> Comp Metabolic Panel 05/28/2018 [facility] Sodium 136 mmol/L N 135-145 [address] [place] [address] [phone] Potassium 4.1 mmol/L N 3.5-5.0 Chloride 101 [...] Egfr 119.9 >60 1 Lipid Profile 05/28/2018 [facility] Triglycerides 87 mg/dL 2 (Trig/Chol/HDL) [address] [place] [address] [phone] Cholesterol 225 mg/dL 3 HDL Cholesterol 73.4 mg/dL 4 LDL Cholesterol 134 mg/dL 5 Comp Metabolic Panel 11/14/2017 [facility] Sodium 137 mmol/L Low 139-145 [address] [place] [address] [phone] Potassium 4.0 mmol/L N 3.5-5.0 Chloride 101 [...] Egfr 135.7 >60 6 Lipid Profile 11/14/2017 [facility] Triglycerides 139 mg/dL 7 (Trig/Chol/HDL) [address] [place] [address] [phone] Cholesterol 255 mg/dL 8 HDL Cholesterol 66.6 mg/dL 9 LDL Cholesterol 161 mg/dL 10 Laboratory test 11/14/2017 [facility] Vitamin D Total 46.2 ng/ mL N 20-[address]) [place] [address] [phone] Laboratory test 01/01/2015 [facility] Vitamin D Total 39.1 ng/ mL N 30-50 [address](Oh) [place] [address] [phone] Lipid Profile 01/01/2015 [facility] Triglycerides 101 mg/dL N 13 (Trig/Chol/HDL) [address] [place] [address] [phone] Cholesterol 269 mg/dL N 14 HDL Cholesterol 72.8 mg/dL N 15 LDL Cholesterol 176 mg/dL N 16 Comp Metabolic Panel 01/01/2015 [facility] Sodium 136 mmol/L N 133-[address] [place] [address] [phone] Potassium 4.3 mmol/L N 3.5-5.0 Chloride 102 [...] Egfr 136.9 N >60 17 Urinalysis 07/08/2013 [facility] Urine Color Yellow [address] [place] [address] [phone] Urine Appearance Clear Urine Specific [place] 1.011 1.010-1.030 Urine Esterase 2+ Abnormal Negative Urine Nitrate Negative Negative Urine Urobilinogen Negative E.U./dL Negative Urine Protein Negative mg/dL Negative Urine pH 6.5 5-9 Urine Blood Negative Negative Urine Ketones Trace mg/dL Abnormal Negative Urine Bilirubin Negative Negative Urine Glucose Negative mg/dL Negative Urine Microscopic 07/08/2013 [facility] Urine WBC 1+ (<[address] /hpf) [place] [address] [phone] Urine RBC 1+ (<3 /hpf) None Seen Urine Epithelial Cells 1+ Squamous /hpf None Seen Bacteria Urine 1+ None Seen Urine Culture And 07/08/2013 [facility] Urine Culture (SEE NOTE ) [address] [place] [address] [phone] CBC Auto Diff 07/08/2013 [facility] White Blood 3.7 Low 4.8-[address] Count 10^3/uL 0.8 [place] [address] [phone] Red Blood Count 3.97 10^6/uL Low 4.0-5.4 [...] Red Blood Cells % 0.1 Inr/Protime 07/08/2013 [facility] Inr 0.93 0.85-1.[address] [place] [address] [phone] Laboratory test 07/08/2013 [facility] Activated 27.9 24.0- 36.1 [address] [place] [address] Thrombo Time [phone] Comp Metabolic 07/08/2013 [facility] Sodium 133 mmol/L 133- [address] [place] [address] [phone] Potassium 3.9 mmol/L 3.5-5.0 Chloride 101 mmol/L [...] Egfr 156.4 >60 21 Laboratory test 07/08/2013 [facility] Troponin I 0 ng/mL 0- 0.06 [address] [place] [address] [phone] CBC Auto Diff 07/03/2013 [facility] White Blood 8.1 4.8-10.[address] Count 10^3/[place] [address] [phone] Red Blood Count 4.24 10^6/uL 4.0-5.4 Hemoglobin [...] Cells % 0 Comp Metabolic Panel 07/03/2013 [facility] Sodium 135 mmol/L 133-[address] [place] [address] [phone] Potassium 3.7 mmol/L 3.5-5.0 Chloride 102 mmol/L [...] Egfr 156.4 >60 23 Laboratory test 07/03/2013 [facility] Troponin I 0 ng/mL 0- 0.06 [address] [place] [address] [phone] Vitamin D 1,25 07/11/2012 [facility] Vitamin D 66 pg/mL 18- 78 25 And Vitamin D,[address] 1,25[place] [address] [phone] Vitamin D, 25 07/11/2012 [facility] 25-Hydroxy <4.0 ng/mL Hydroxy [address] Vitamin D2 [place] [address] [phone] 25-Hydroxy Vitamin D3 43 ng/mL 25-Hydroxy Vitamin D Total 43 ng/mL 26 Comp Metabolic Panel 07/11/2012 [facility] Sodium 135 mmol/L 133-[address] [place] [address] [phone] Potassium 3.5 mmol/L 3.5-5.0 Chloride 103 mmol/L [...] Egfr 156.9 >60 27 Lipid Profile 07/11/2012 [facility] Triglycerides 101 mg/dL 40-200 (Trig/Chol/HDL) [address] [place] [address] [phone] Cholesterol 276 mg/dL High Less than 200 HDL Cholesterol 68 mg/dL High 40-60 28 Cholesterol/HDL Ratio 4.1 Average 1-4.44 LDL Cholesterol 187.8 mg/dL High Less Than 100 29 Laboratory test 07/11/2012 [facility] TSH (Thyroid 3.78 0.34- 5.60 finding 101 [facility] Stimulating MIU/[place] [address] Horm) [phone] Ua Routine 07/04/2012 [facility] Ua Specific 1.005 [place] Ua PH 7 Ua Color eh Ua Appera clear Ua WBC trace Ua Protein neg Ua Glucose neg Ua Ketones neg Ua Bilirubin neg Ua Urobilinogen neg Ua Nitrite neg Ua Occult Blood neg Urine Culture And 06/28/2012 [facility] Urine Culture (SEE NOTE ) 30 Sensitivities [address] [place], [place] [id number] [phone] Ua Routine 06/28/2012 [facility] Ua Specific 1.000 [place] Ua PH 5 Ua Color pale Ua Appera clear Ua WBC small Ua Protein neg Ua Glucose neg Ua Ketones neg Ua Bilirubin neg Ua Urobilinogen neg Ua Nitrite neg Ua Occult Blood Non hem trace Lipid Profile 05/12/2011 [facility] Triglyceride 157 mg/dL 40 -200 (Trig/Chol/HDL) [address] [place] [address] [phone] Cholesterol 283 mg/dL High Less Than 200 31 High Density Lipoprotein 69 mg/dL High 40-60 32 Cholesterol/HDL Ratio 4.10 AVERAGE 1-4.44 Low Density Lipoprotein 183 mg/dL High Less Than 100 33 Comp Metabolic Panel 05/12/2011 [facility] Sodium 135 mmol/L 135-145 [address] [place] [address] [phone] Potassium 4.2 mmol/L 3.5-5.0 Chloride 100 mmol/L [...] 157.3 > 60 36 Laboratory test 05/12/2011 [facility] TSH 4.59 MIU/ML 0.34- 5.60 finding [address] [place] [address] [phone] 1 Because ethnic data is not always [...] <15 (or dialysis) 18 RUN DATE: 07/10/13 [facility] LAB LIVE PAGE 1 RUN TIME: [address] [place] [address] Specimen Inquiry Name: PRO VO : [address]: Giovanny Velázquez DO Acct: [id number] Unit: [id number] AGE: 73 Location: ED Re07/08/13 SEX: F Status: DEP ER SPEC: [id number] RANJANA: 07/08/13-[address]: Raysa BENITEZ REQ: [id number] RECD: 07/08/13 STATUS: JATIN VILLA DR: [facility] 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 Director [facility] Permit #[id number] Please note the change in the [...] 0.06 ng/mL Not supportive of diagnosis of [place] 0.06 - 0.50 ng/mL Indeterminate: suggest serial studies if clinically indicated. Greater than 0.5 ng/mL Consistent with diagnosis of [place] 23 Because ethnic data is not always [...] 0.06 ng/mL Not supportive of diagnosis of [place] 0.06 - 0.50 ng/mL Indeterminate: suggest serial studies if clinically indicated. Greater than 0.5 ng/mL Consistent with diagnosis of [place] 25 Test Performed by: [place] [address] Last Marker: Miguel Ahn III, M.D. 26 -- REFERENCE VALUE -- 25-HYDROXY D TOTAL (D2+D3) Optimum levels in the normal population are 25-80 Test Performed by: [place] [address] Last Marker: Miguel Ahn III, M.D. 27 Because ethnic [...] than 189 MG/DL 30 RUN DATE: 06/30/12 [facility] LAB LIVE PAGE 1 RUN TIME: 1109 [address] [place], [place] [address] Specimen Inquiry Name: PRO VO : [address]: Quynh Rosenbaum MD Acct: [id number] Unit: [id number] AGE: 72 Location: [facility] Re06/28/12 SEX: F Status: REG REF SPEC: [id number] RANJANA: 06/28/121428 [facility] DR: Ilsa SHIPMANQuynh REQ: [id number] RECD: 06/28/12 STATUS: COMP _ SOURCE: URINE SPDESC: ORDERED: Urine Culture QUERIES: Medent Number [id number] Procedure Result Verified Site Urine Culture Final 06/30/12- 1109 ML Organism 1 NORMAL CALE [place] Count 1-10,000 (Few) CFU/ML END OF REPORT * ML=Testing performed at Main Lab DEPARTMENT OF PATHOLOGY, [address] [place] [address] Ted Alaniz M.D. Director [facility] Permit #[id number] CHOLESTEROL INTERPRETATION: Desirable: Less than 200 [...] dialysis) Procedures Date Code Description Status 08/29/2018 39606 EKG Tracing & Interpretation Completed 05/25/2018 67363 Inject/Drain Joint/Bursa Major W/O US Completed 05/25/2018 [id number] Mammogram Completed 12/25/2015 [id number] Mammogram Completed 09/15/2014 [id number] Bone Mineral Density Test Completed 04/24/2014 [id number] Colonoscopy Completed 07/11/2012 [id number] Bone Mineral Density Test Completed 07/11/2012 [id number] Mammogram Completed 05/20/2011 [id number] Mammogram Completed 04/27/2011 93972 EKG Tracing & Interpretation Completed 05/06/2010 [id number] Bone Mineral Density Test Completed 05/06/2010 [id number] Mammogram Completed 10/10/2008 56853 EKG Tracing & Interpretation Completed Encounters Type Date Location Provider Dx Diagnosis Office Visit 05/25/2018 Orthopedic Judha Segura MD M19.011 Primary 11:30a Services Of C.M[facility]alino[facility]. osteoarthritis, right shoulder M75.121 Complete rotatr-cuff tear/ruptr of r shoulder, not trauma Office Visit 11/17/2017 10:20a [facility] Sarai Ivy, I10 Essential ( primary) Medicine - N.P. hypertension [place] G25.0 Essential tremor Office Visit 10/17/2017 9:30a Orthopedic Judah Segura M75.122 Complete Services Of rotatr-cuff C.M.A. tear/ruptr of left shoulder, not trauma Office Visit 10/03/2017 9:00a Orthopedic Judah Segura M25.512 Pain in left Services Of shoulder C.M.A. S46.012A Strain of musc/tend the rotator cuff of left shoulder, init Office Visit 01/16/2017 4:00p [facility] Sarai Ivy, R43.0 Anosmia Medicine - N.P. [place] Office Visit 07/21/2015 10:20a [facility] Sarai Ivy, M54.5 Low back pain Medicine - N.P. [place] Office Visit 05/23/2014 11:20a [facility] Sarai Ivy, V72.84 Examination Medicine - N.P. Preoperative [place] Unspec 401.1 Hypertension Benign 366.9 Cataract Unspec Office Visit 02/26/2014 3:00p [facility] Sarai Ivy, 724.1 Pain Thoracic Medicine - N.P. 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 General Medical [place] Routine AT Health Care Facility 401.1 Hypertension Benign 726.19 Shoulder Disorders Other Spec Office Visit 07/09/2013 4:20p [facility] Sarai Cata, 386.11 Vertigo Benign Medicine - N.P. Paroxysmal [place] Position Office Visit 06/28/2012 2:20p [facility] Quynh Rosenbuam, 788.1 Dysuria Medicine - M.D., FACP [place] Office Visit 09/09/2011 4:00p [facility] Sarai Cata, 729.5 Pain In Limb Medicine - N.P. [place] Office Visit 05/27/2011 2:00p DO Not Use Sarai Varn, 401.1 Hypertension Traveling [employer] N.P. Benign 272.4 Hyperlipidemia Other Unspec Office Visit 04/27/2011 DO Not Use Sarai Varn, V70.0 Examination 3:00p [employer] N.P. General Medical Routine AT Health Care Facility 401.1 Hypertension Benign 733.90 Bone & Cartilage Disorder Unspec V76.10 Screening For Malignant Neoplasm Breast Office Visit 10/25/2010 DO Not Use Sarai Varn, 401.1 Hypertension 3:00p [employer] N.P. Benign 719.49 Pain Joint Multiple Sites Office Visit 04/26/2010 DO Not Use Sarai Varn, V70.0 Examination 3:00p [employer] N.P. 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 Office Visit 12/10/2008 DO Not Use Sarai 709.9 Skin & Subcutaneous 9:30a [employer] Varn, N.P. Tissue Disorders Unspec Office Visit 10/10/2008 DO Not Use Sarai 401.1 Hypertension Benign 2:00p [employer] Varn, N.P. Office Visit 05/18/2007 DO Not Use Sarai 110.5 Dermatophytosis Body 10:45a [facility] Varn, N.P. Office Visit 04/25/2007 DO Not Use Sarai 796.2 Blood Pressure 3:45p [employer] [facility] Vazquezn, N.P. Reading Elevated W/O Hypertension 272.4 Hyperlipidemia Other Unspec Office Visit 04/11/2007 DO Not Use Sarai Varn, V72.31 Routine Hand Etcher Helper 2:00p [employer] N.P. Examination Plan of Treatment Future Appointment(s):05/27/2019 9:20 am - Sarai Ivy, N.P. at [facility] Medicine - Ueeiyosgg37/25/2019 9:40 am - Sarai Ivy, N.P. at [facility] Medicine - Lgtxrgijr23/30/2019 - Sarai Ivy, N.P.I10 Essential (primary) hypertensionComments:Your [...] daily. I am referring you to a sail lay out worker, Dr Haney.Referral: Rodolfo Haney, , [facility], Cardiovsclr Disease
[2018-09-21 22:17] LABS: ABS Basophils 0.1 10^3/ul (0-0.2); ABS Eosinophils 0 10^3/ul (0-0.6); ABS Lymphocytes 1.3 10^3/ul (1.0-4.8); ABS Monocytes 0.4 10^3/ul (0-0.8); ABS Neutrophils 5.2 10^3/ul (1.5-7.7); ABS Nucleated RBC 0 10^3/ul; Eosinophil % 0.5 %; Hematocrit 38 % (35-47); Hemoglobin 13.2 g/dl (12.0-16.0); Lymphocyte % 18.6 %; Mean Corpuscular HGB Conc 35 g/dl (31-36); Mean Corpuscular Hemoglobin 32 pg (27-31); Mean Corpuscular Volume 92 fL (80-97); Mean Platelet Volume 7.7 fL (7.4-10.4); Nucleated Red Blood Cells % 0; Platelet Count 211 10^3/ul (150-450); Red Blood Count 4.14 10^6/ul (4.00-5.40); Red Cell Distribution Width 13 % (10.5-15)
[2018-09-21 22:32] LABS: INR 2.41 (0.77-1.02)
[2018-09-21 22:34] LABS: Albumin 4.3 g/dL (3.2-5.2); Albumin/Globulin Ratio 1.4 (1-3); BUN/Creatinine Ratio 20.8 (8-20); Calcium 9.8 mg/dL (8.6-10.3); EGFR African American 135.7 (>60); EGFR Non-African American 112.2 (>60); Total Bilirubin 0.4 mg/dL (0.2-1.0); Total Protein 7.3 g/dL (6.4-8.9)
[2018-09-21 22:36] LABS: Troponin I 0.01 ng/mL (<0.04)
[2018-09-21 23:00] LABS: Potassium 3.9 mmol/L (3.5-5.0)
[2018-09-21 23:02] LABS: TSH (Thyroid Stimulating Horm) 2.64 mcIU/mL (0.34-5.60)
--- NOTE | 2018-09-21 23:07 | ED ---
Palpitations / Dysrhythmia - HPI Summary HPI Summary: Patient complains of an episode of palpitations lasting 2 hours with associated mild SOB. No active symptoms here in the ED. SOB was worse lying down or sitting, better with standing up. Patient states she has recent diagnosis of A. fib, currently taking Xarelto diltiazem. States she is compliant with medications. Denies fever, cough, sore throat, CP, N/V/D, abdominal pain, change in urine, change in BM. Medical medical history is A. fib. Refrigeration Lead is Dr. Peña. - History of Current Complaint Chief Complaint: EDChestPainROMI Time Seen by Provider: 09/21/18 21:32 Hx Obtained From: Patient Onset/Duration: Sudden Onset, Lasting Hours Severity Initially: Moderate Severity Currently: None Character: Fast Aggravating: Position Associated Signs & Symptoms: Shortness of Breath - Risk Factors Cardiac: Negative - Allergy/Home Medications Allergies/Adverse Reactions: Allergies Allergy/AdvReac Type Severity Reaction Status Date / Time No Known Allergies Allergy Verified 01/30/17 09:00 Home Medications: Home Medications Ramipril CAP* [Altace CAP*] 2.5 mg PO DAILY 09/21/18 [History Confirmed 09/21/18 ] dilTIAZem HCl [Cartia Xt] 120 mg PO DAILY 09/21/18 [History Confirmed 09/21/18] PMH/Surg Hx/FS Hx/Imm Hx Endocrine/Hematology History: Denies: Hx Diabetes Cardiovascular History: Reports: Hx Hypertension - UNDER CONTROL WITH MEDICATION Denies: Hx Pacemaker/ICD Respiratory History: Denies: Other Respiratory Problems/Disorders History: Denies: Hx Renal Disease Musculoskeletal History: Reports: Other Musculoskeletal History - TEMP BACK PROBLEM 06/2013-STATES FROM [place] AND [place] NOW Denies: Hx Rheumatoid Arthritis, Hx Osteoporosis Sensory History: Reports: Hx Cataracts - BILATERAL, Hx Contacts or Glasses - READING Denies: Hx Hearing Aid Opthamlomology History: Reports: Hx Cataracts - BILATERAL, Hx Contacts or Glasses - READING Psychiatric History: Denies: Hx Panic Disorder - Cancer History Cancer Type, Location and Year: SKIN CANCER - - Surgical History Surgery Procedure, Year, and Place: C SECTION ;. KNEE- Rt -SHATTER KNEE CAP REMOVE ;. SKIN CANCER - REMOVAL ;. PINIDAL CYST ;. Rt & Lt SHOULDER - RTC RT [address] BURCH ;. CATARACTS 2015 BOTH EYES ; Hx Anesthesia Reactions: No Infectious Disease History: No Infectious Disease History: Denies: Traveled Outside the [place] in Last 30 Days - Social History Alcohol Use: Daily Alcohol Amount: 1 GLASS OF RED WINE Q NIGHT Substance Use Type: Reports: None Smoking Status (MU): Never Smoked Tobacco Review of Systems Constitutional: Negative Eyes: Negative ENT: Negative Positive: Palpitations Positive: Shortness Of Breath Gastrointestinal: Negative Genitourinary: Negative Musculoskeletal: Negative Skin: Negative Neurological: Negative Psychological: Normal All Other Systems Reviewed And Are Negative: Yes Physical Exam Triage Information Reviewed: Yes Vital Signs On Initial Exam: Initial Vitals Temp Pulse Resp BP Pulse Ox 97.5 F 108 20 134/98 98 09/21/18 20:30 09/21/18 20:30 09/21/18 20:30 09/21/18 20:30 09/21/18 20:30 Vital Signs Reviewed: Yes Appearance: Positive: Well-Appearing Skin: Positive: Warm Head/Face: Positive: Normal Head/Face Inspection Eyes: Positive: Normal ENT: Positive: Normal ENT inspection Neck: Positive: Supple Respiratory/Lung Sounds: Positive: Clear to Auscultation Cardiovascular: Positive: IRR Abdomen Description: Positive: Nontender Musculoskeletal: Positive: Normal Neurological: Positive: Normal Psychiatric: Positive: Normal AVPU Assessment: Alert - Maximus Coma Scale Best Eye Response: 4 - Spontaneous Best Motor Response: 6 - Obeys Commands Best Verbal Response: 5 - Oriented Coma Scale Total: 15 Diagnostics - Vital Signs Vital Signs Temp Pulse Resp BP Pulse Ox 09/21/18 22:30 103 14 125/90 96 09/21/18 22:03 86 22 97 09/21/18 21:30 95 12 123/82 94 09/21/18 21:02 92 15 95 09/21/18 21:00 95 16 131/90 95 09/21/18 20:32 95 17 96 09/21/18 20:30 97.5 F 100 20 134/98 97 - Laboratory Lab Results: Lab Results 09/21/18 09/21/18 09/21/18 Range/Units 22:09 22:09 22:09 WBC 7.0 (3.5-10.8) 10^3/ul RBC 4.14 (4.00-5.40) 10^6/ul Hgb 13.2 (12.0-16.0) g/dl Hct 38 (35-47) % MCV 92 (80-97) fL MCH 32 H (27-31) pg MCHC 35 (31-36) g/dl RDW 13 (10.5-15) % Plt Count 211 (150-450) 10^3/ul MPV 7.7 (7.4-10.4) fL Neut % (Auto) 74.1 % Lymph % (Auto) 18.6 % [place] % (Auto) 5.9 % Eos % (Auto) 0.5 % Baso % (Auto) 0.9 % Absolute Neuts (auto) 5.2 (1.5-7.7) 10^3/ul Absolute Lymphs (auto) 1.3 (1.0-4.8) 10^3/ul Absolute Monos (auto) 0.4 (0-0.8) 10^3/ul Absolute Eos (auto) 0 (0-0.6) 10^3/ul Absolute Basos (auto) 0.1 (0-0.2) 10^3/ul Absolute Nucleated RBC 0 10^3/ul Nucleated RBC % 0 INR (Anticoag Therapy) 2.41 H (0.77-1.02) Sodium 136 (135-145) mmol/L Potassium 3.9 (3.5-5.0) mmol/L Chloride 103 (101-111) mmol/L Carbon Dioxide 25 (22-32) mmol/L Anion Gap 8 (2-11) mmol/L BUN 11 (6-24) mg/dL Creatinine 0.53 (0.51-0.95) mg/dL Est GFR ( Amer) 135.7 (>60) Est GFR (Non-Af Amer) 112.2 (>60) BUN/Creatinine Ratio 20.8 H (8-20) Glucose 118 H (70-100) mg/dL Lactic Acid (0.5-2.0) mmol/L Calcium 9.8 (8.6-10.3) mg/dL Magnesium 2.0 (1.9-2.7) mg/dL Total Bilirubin 0.40 (0.2-1.0) mg/dL AST 19 (13-39) U/L ALT 17 (7-52) U/L Alkaline Phosphatase 87 (34-104) U/L Troponin I 0.01 (<0.04) ng/mL B-Natriuretic Peptide (<=100) pg/mL Total Protein 7.3 (6.4-8.9) g/dL Albumin 4.3 (3.2-5.2) g/dL Globulin 3.0 (2-4) g/dL Albumin/Globulin Ratio 1.4 (1-3) TSH 2.64 (0.34-5.60) mcIU/mL 09/21/18 09/21/18 Range/Units 22:09 22:09 WBC (3.5-10.8) 10^3/ul RBC (4.00-5.40) 10^6/ul Hgb (12.0-16.0) g/dl Hct (35-47) % MCV (80-97) fL MCH (27-31) pg MCHC (31-36) g/dl RDW (10.5-15) % Plt Count (150-450) 10^3/ul MPV (7.4-10.4) fL Neut % (Auto) % Lymph % (Auto) % [place] % (Auto) % Eos % (Auto) % Baso % (Auto) % Absolute Neuts (auto) (1.5-7.7) 10^3/ul Absolute Lymphs (auto) (1.0-4.8) 10^3/ul Absolute Monos (auto) (0-0.8) 10^3/ul Absolute Eos (auto) (0-0.6) 10^3/ul Absolute Basos (auto) (0-0.2) 10^3/ul Absolute Nucleated RBC 10^3/ul Nucleated RBC % INR (Anticoag Therapy) (0.77-1.02) Sodium (135-145) mmol/L Potassium (3.5-5.0) mmol/L Chloride (101-111) mmol/L Carbon Dioxide (22-32) mmol/L Anion Gap (2-11) mmol/L BUN (6-24) mg/dL Creatinine (0.51-0.95) mg/dL Est GFR ( Amer) (>60) Est GFR (Non-Af Amer) (>60) BUN/Creatinine Ratio (8-20) Glucose (70-100) mg/dL Lactic Acid 0.7 (0.5-2.0) mmol/L Calcium (8.6-10.3) mg/dL Magnesium (1.9-2.7) mg/dL Total Bilirubin (0.2-1.0) mg/dL AST (13-39) U/L ALT (7-52) U/L Alkaline Phosphatase (34-104) U/L Troponin I (<0.04) ng/mL B-Natriuretic Peptide 260 H (<=100) pg/mL Total Protein (6.4-8.9) g/dL Albumin (3.2-5.2) g/dL Globulin (2-4) g/dL Albumin/Globulin Ratio (1-3) TSH (0.34-5.60) mcIU/mL Result Diagrams: 09/21/18 22:09 09/21/18 22:09 Lab Statement: Any lab studies that have been ordered have been reviewed, and results considered in the medical decision making process. Course/Dx - Course Course Of Treatment: Patient complains of an episode of palpitations lasting 2 hours with associated mild SOB. No active symptoms here in the ED. SOB was worse lying down or sitting, better with standing up. Patient states she has recent diagnosis of A. fib, currently taking Xarelto diltiazem. States she is compliant with medications. Denies fever, cough, sore throat, CP, N/V/D, abdominal pain, change in urine, change in BM. Medical medical history is A. fib. Refrigeration Lead is Dr. Peña. Physical exam unremarkable. Patient intermittently mildly tachycardic with rate less than 110. Patient currently taking Xarelto diltiazem. Rate controlled. No active symptoms here in ED. Labs unremarkable. BNP 263. Chest x-ray unremarkable. No peripheral edema. EKG A. fib, rate of 90. Discussed patient with Dr. obregon who agreed patient to be discharged home with follow-up with cardiology. Patient understands unopposable plan. Patient also states she has Holter monitor and stress test upcoming. - Diagnoses Provider Diagnoses: A-fib Discharge - Sign-Out/Discharge Documenting (check all that apply): Patient Departure Patient Received Moderate/Deep Sedation with Procedure: No - Discharge Plan Condition: Stable Disposition: HOME Patient Education Materials: A-fib (Atrial Fibrillation) (ED) Referrals: Soni Musa MD [Primary Care Provider] - Additional Instructions: Follow-up with your applications support analyst Dr Peña. Return to the ED for any new or worsening symptoms. - Billing Disposition and Condition Condition: STABLE Disposition: Home
[2018-09-21 23:15] LABS: Urine Appearance Clear; Urine Bacteria Absent (Absent); Urine Bilirubin Negative (Negative); Urine Blood Negative (Negative); Urine Color Straw; Urine Glucose Negative (Negative); Urine Ketones Negative (Negative); Urine Nitrite Negative (Negative); Urine Protein Negative (Negative); Urine Red Blood Cell Trace(0-2/hpf) (Absent); Urine Specific Gravity 1.004 (1.010-1.030); Urine Squamous Epithelial Cell Present (Absent); Urine Urobilinogen Negative (Negative); Urine White Blood Cell Trace(0-5/hpf) (Absent)
[2018-09-21 23:24] VITALS: BP 133/90
== END 2018-09-21 23:20 | disposition home or self-care (01) ==
LOC: ED 20:20
DX: I48.91 Unspecified atrial fibrillation (principal); Z79.01 Long term (current) use of anticoagulants; R06.02 Shortness of breath; I10 Essential (primary) hypertension
CPT/HCPCS: 36415; 71046; 80053; 81003; 81015; 83605; 83735; 83880; 84443; 84484; 85025; 85610; 87086; 93005; 99283

== ENCOUNTER 2019-08-05 17:58 | Emergency (ER) | payer MEDICARE, OTHER ==
--- OUTSIDE RECORDS SUMMARY | 2019-08-05 18:16 | XMS REPORT | Summary of Care ---
:1940 Author Organization [facility] Address [address] [address] Care Team Providers Name Role Phone Sarai Ivy NP Primary Care Provider Reason for Visit Auth/Cert Status Reason Specialty Diagnoses / Procedures Referred By Contact Referred To Contact Encounter Details Date Type Department Care Team Description 06/10/2019 - Hospital Encounter [facility] 8 [facility], Inpatient 06/15/2019 [address] [place] [id number] [address] [phone] [place] [address] [phone] Allergies No Known Allergiesdocumented as of this encounter (statuses as of 06/16/2019) Medications Medication Sig Dispensed Refills Start Date End Date Status potassium chloride Take 10 mEq by 0 Active (MICRO-K) 10 MEQ Oral mouth DAILY. Cap CR alpha-tocopherol Take 400 Units 0 Active (VITAMIN E) 400 UNIT by mouth Oral Cap DAILY. Cholecalciferol Take 1 Cap by 0 Active (VITAMIN D3) 5000 mouth DAILY. units Oral Cap Picher-3 Fatty Acids Take 1,360 mg 0 Active (OMEGA-3 FISH OIL PO) by mouth DAILY. Multiple Take 1 Tab by 0 Active Vitamins-Minerals mouth DAILY. (CENTRUM SILVER 50+WOMEN) Oral Tab Coenzyme Q10 (CO Take 1 Cap by 30 Cap 0 10/16/2018 Active Q-10) 400 MG Oral Cap mouth DAILY. ramipril (ALTACE) 2.5 Take 1 Cap by 90 Cap 3 12/31/2018 Active MG Oral Cap mouth DAILY. rivaroxaban (XARELTO) Take 1 Tab by 90 Tab 3 03/12/2019 Active 20 MG Oral Tab mouth DAILY. diltiazem (CARDIZEM) Take 1 Tab by 30 Tab 2 03/22/2019 Active 30 MG Oral Tab mouth DAILY NEEDED (Heart Palpitaitons). pantoprazole Take 1 Tab by 30 Tab 0 06/14/2019 Active (PROTONIX) 40 MG Oral mouth DAILY 9 Tab EC for 30 days. Start one week prior to procedure. sotalol (BETAPACE) 80 Take 1 Tab by 180 Tab 3 06/14/2019 Active MG Oral Tab mouth TWICE 0 DAILY for 90 days. sucralfate (CARAFATE) Take 1 Tab by 84 Tab 0 06/14/2019 Active 1 GM Oral Tab mouth FOUR 9 TIMES DAILY for 21 days. propranolol (INDERAL Take 1 Cap by 90 Cap 3 12/11/2018 Discontinued LA) 120 MG Oral mouth DAILY. 9 CAPSULE SR 24 HRIndications: Persistent atrial fibrillation pantoprazole Take 1 Tab by 30 Tab 0 05/06/2019 Discontinued (PROTONIX) 40 MG Oral mouth DAILY 9 Tab EC for 30 days. Start one week prior to procedure. sucralfate (CARAFATE) Take 1 Tab by 120 Tab 0 05/06/2019 1 GM Oral Tab mouth FOUR 9 TIMES DAILY for 30 days. Take after procedure documented as of this encounter (statuses as of 06/16/2019) Active Problems Problem Noted Date Sinus node dysfunction 06/13/2019 Atrial fibrillation 05/06/2019 Overview: Added automatically from request for surgery [id number] Paroxysmal A-fib 02/28/2019 Overview: Added automatically from request for surgery [id number] Persistent atrial fibrillation 10/10/2018 Essential hypertension 10/10/2018 Non-rheumatic mitral regurgitation 10/10/2018 documented as of this encounter (statuses as of 06/16/2019) Social History Tobacco Use Types Packs/Day Years Used Date Never Smoker 0 Smokeless Tobacco: Never Used Alcohol Use Drinks/Week oz/Week Comments Not Currently Sex Assigned at Date Recorded Not on file Job Start Date Occupation Industry Not on file Not on file Not on file Travel History Travel Start Travel End No recent travel history available. documented as of this encounter Last Filed Vital Signs Vital Sign Reading Time Taken Comments Blood Pressure 127/78 06/15/2019 7:30 AM EST Pulse 69 06/15/2019 7:30 AM EST Temperature 36.7 06/15/2019 7:30 AM EST C (98.1 F) Respiratory Rate 20 06/15/2019 7:30 AM EST Oxygen Saturation 98% 06/15/2019 7:30 AM EST Inhaled Oxygen Concentration - - Weight 60 kg (132 lb 4.8 oz) 06/15/2019 5:30 AM EST Height 162.6 cm (5' 4") 06/10/2019 4:15 PM EST Body Mass Index 22.71 06/10/2019 4:15 PM EST documented in this encounter Discharge Instructions InstructionsDyan Hope NP - 06/14/2019Provider's Instructions Activity/Restrictions: No pushing, pulling, or heavy lifting with implant side for 2 months. No driving for 2 weeks. Skin/Wound Care: As per PVI and Pacemaker instructions Discharge Diet: Heart healthy Diet Special Instructions: Return in 10-14 days for staple/suture removal with EP nurse. Follow up with arrhythmia center per protocol. Follow up with Alvin AVENDANO in 4 weeks. Discharge Provider: Alvin Casas NP Attending: Yves Espino MD Time: 10:36 documented in this encounter Progress Notes Alvin Casas NP - 06/13/2019 9:56 AM EST [facility] [place]. [id number] Cardiology Progress Note Date of Service: 06/13/2019 Patient: Cristina Sánchez # [id number] Attending: Dr Espino Subjective: Patient has no complaints. She denies chest pain, shortness of breath, or peripheral edema. Objective: Vitals: 06/12/19 1932 06/13/19 0030 06/13/19 0430 06/13/19 0715 BP: 117/64 128/82 Pulse: 74 68 80 Resp: 20 19 Temp: 97.7 F (36.5 C) 97.4 F (36.3 C) TempSrc: Oral Oral SpO2: 96% 96% 100% Weight: 132 lb 4 oz (60 kg) Height: Physical Exam Constitutional: She is oriented to person, place, and time. She appears well- developed and well-nourished. No distress. HENT: Head: Normocephalic. Neck: Normal range of motion. Neck supple. No JVD present. Cardiovascular: Normal rate, regular rhythm, normal heart sounds and intact distal pulses. Exam reveals no gallop and no friction rub. No murmur heard. Pulmonary/Chest: Effort normal and breath sounds normal. No respiratory distress. She has no wheezes. She has no rales. Musculoskeletal: Normal range of motion. General: No edema. Neurological: She is alert and oriented to person, place, and time. Skin: Skin is warm and dry. No erythema. Bilateral groin sutures removed no swelling, erythema, or discharge. Slight venous bleeding from the right groin. Nursing staff will re-check. Psychiatric: Her behavior is normal. Data: Lab Results Component Value Date NA 134 06/13/2019 K 3.7 06/13/2019 CL 104 06/13/2019 CO2 23 06/13/2019 GLUCOSE 117 (H) 06/13/2019 BUN 14 06/13/2019 CREATININE 0.4 (L) 06/13/2019 CALCIUM 8.8 06/13/2019 EGFR >60 06/13/2019 Magnesium Date Value Ref Range Status 06/13/2019 2.0 1.6 - 2.3 MG/DL Final Electrophysiology Procedure Result Date: 06/13/2019 FINAL RESULT: ELECTROPHYSIOLOGY SERVICE PULMONARY VEIN ISOLATION CONCLUSION: 1. Successful isolation of pulmonary veins with both antra. #2 large right and left atrium. Left atrial volume is at 80 mL's per square meter IV twice the normal #3 there are minimal or no voltages in the left atrium #4 post ablation right isthmus dependent atrial flutter induced and this was ablate #5 severe AV conductiondisease and sinus node disease. The LA interval exceeds 300 ms in view of this a dual-chamber pacemaker and possibly his lead would be the best option Author: Yves Espino MD 06:52 06/13/19 SECTION OF CARDIOLOGY Tests: EK06/13/2019 electrocardiogram sinus rhythm rate 73 RODGER 288 QRSd 86 QTc 475 Assessment/Plan: Paroxysmal atrial Fibrillation: The etiology of atrial fibrillation in this patient is most likely related to hypertension and mitral regurgitation. The heart-rate is currently 73 controlled on the current medical regimen, and there are no signs of heart failure. This patient's [id number] score is 4, which correlates with an adjusted stroke rate of 4.0 per year without treatment. The HAS-BLED score is 2, which correlates with an estimated yearly risk of major bleeding of 1.88%. Patients EHRA score is II. I recommend the following treatment strategy and medical regimen for this patient: Stroke prevention: Based on the patient's [id number] risk profile, I recommend continued Xarelto. We will continue Lovenox at this time due to procedure tomorrow. Rate and rhythm control: Continue Betapace. Propranolol for now however after by V pacing if patient needs propranolol for essential tremors this may be restarted. Further workup/management issues: During pulmonary vein isolation patient is noted to have LA interval exceeding 300 ms with noted severe AV conduction disease and sinus node disease. We will plan pacemaker with HIS pacing on 06/14. Given the pertinent findings, dual-chamber pacemaker with His pacing are recommended. RIsks and benefits of procedure including but not limited to damage to blood vessels explained to patient and accompanying persons. Device therapy reviewed. Risks from implant including but not limited to pneumothorax , bleeding and infection discussed. IV sedation reviewed. Denies prior problems with sedation. ASA class II. Understands and agrees to proceed. Author: Alvin Casas NP, 06/13/2019 documented in this encounter Plan of Treatment Date Type Specialty Care Team Description 06/25/2019 Cardiology Cardiology Nurse/clinical support 07/12/2019 Office Visit Cardiology Alvin Casas NP [address] [address] [phone] 07/18/2019 Office Visit Arrhythmia Center Name Type Priority Associated Date/Time Diagnoses INPT/ED 12 LEAD EKG EKG Routine 06/10/2019 4:11 PM EST INPT/ED 12 LEAD EKG EKG Routine 06/10/2019 4:09 PM EST INPT/ED 12 LEAD EKG EKG Routine 06/10/2019 4:07 PM EST INPT/ED 12 LEAD EKG EKG Routine 06/12/2019 9:15 AM EST INPT/ED 12 LEAD EKG EKG Routine 06/11/2019 8:59 PM EST INPT/ED 12 LEAD EKG EKG Routine 06/11/2019 9:19 AM EST INPT/ED 12 LEAD EKG EKG Routine 06/12/2019 8:28 PM EST INPT/ED 12 LEAD EKG EKG Routine 06/13/2019 8:06 PM EST INPT/ED 12 LEAD EKG EKG Routine 06/14/2019 4:36 AM EST INPT/ED 12 LEAD EKG EKG Routine 06/14/2019 12:32 PM EST ELECTROPHYSIOLOGY Electrophysiology Routine 06/14/2019 11:40 PROCEDURE AM EST INPT/ED 12 LEAD EKG EKG Routine 06/15/2019 5:49 AM EST Health Maintenance Due Date Last Done Comments MEDICARE ANNUAL WELLNESS VISIT 1940 DEPRESSION SCREENING 1954 HIV SCREENING 1957 ZOSTER IMMUNIZATION SERIES (1 of 2) 1992 FALL RISK ASSESSMENT 2007 OSTEOPOROSIS SCREENING 2007 PNEUMOCOCCAL 65+YRS (1 of 2 - 2007 PCV13) INFLUENZA VACCINE (#1) 2019 HPV IMMUNIZATION SERIES Aged Out No longer eligible based on patient's age to complete this topic MENINGOCOCCAL VACCINE IMM Aged Out No longer eligible based on patient's age to complete this topic documented as of this encounter Implants Implanted Type Area Aquatics Director Device Shelf Model / Identifier Expiration Date Serial / Lot Lead, Tendril Mri [id number] - [id number] [employer], 2020 [id number] / Implanted: Qty: 1 on 06/14/2019 by Yves Espino MD at [facility]. [id number] / Lead, Tendril Mri [id number] - [id number] [employer], 2019 [id number] / Implanted: Qty: 1 on 06/14/2019 by Yves Espino MD at [facility] [id number] / Select Secure Lead [id number] - [id number] [employer] 02/26/2021 [id number] / Implanted: Qty: 1 on 06/14/2019 by Yves Espino MD at [facility] [id number] / [id number] [employer] Clinical Professor-Rf - [id number] [employer], 04/29/2020 [id number] / Implanted: Qty: 1 on 06/14/2019 by Yves Espino MD at [facility] [id number] / documented as of this encounter Procedures Procedure Name Priority Date/Time Associated Diagnosis Comments XR CHEST 2 VIEW PA STAT 06/15/2019 9:08 Results for this AND LATERAL AM EST procedure are in (STANDARD) the results section. RAINBOW LAB HOLD Routine 06/15/2019 4:17 Results for this TUBES AM EST procedure are in the results section. RAINBOW DRAW LAVENDER Routine 06/15/2019 4:17 TOP AM EST MAGNESIUM LEVEL Routine 06/15/2019 4:17 Results for this AM EST procedure are in the results section. BASIC METABOLIC PANEL Routine 06/15/2019 4:17 Results for this AM EST procedure are in the results section. XR CHEST 1 VIEW STAT 06/14/2019 1:18 Results for this PM EST procedure are in the results section. RAINBOW LAB HOLD Routine 06/14/2019 4:18 Results for this TUBES AM EST procedure are in the results section. RAINBOW DRAW LAVENDER Routine 06/14/2019 4:18 TOP AM EST MAGNESIUM LEVEL Routine 06/14/2019 4:18 Results for this AM EST procedure are in the results section. BASIC METABOLIC PANEL Routine 06/14/2019 4:18 Results for this AM EST procedure are in the results section. RAINBOW LAB HOLD Routine 06/13/2019 4:22 Results for this TUBES AM EST procedure are in the results section. RAINBOW DRAW LAVENDER Routine 06/13/2019 4:22 TOP AM EST MAGNESIUM LEVEL Routine 06/13/2019 4:22 Results for this AM EST procedure are in the results section. BASIC METABOLIC PANEL Routine 06/13/2019 4:22 Results for this AM EST procedure are in the results section. ABLATION PULMONARY Routine 06/12/2019 3:57 Atrial fibrillation, Results for this VEIN PM EST unspecified type procedure are in (HCC) the results section. ACT-LOW RANGE (POCT) Routine 06/12/2019 3:48 Results for this PM EST procedure are in the results section. ACT-LOW RANGE (POCT) Routine 06/12/2019 3:14 Results for this PM EST procedure are in the results section. ACT-LOW RANGE (POCT) Routine 06/12/2019 2:42 Results for this PM EST procedure are in the results section. MAGNESIUM LEVEL Routine 06/12/2019 4:08 Results for this AM EST procedure are in the results section. BASIC METABOLIC PANEL Routine 06/12/2019 4:08 Results for this AM EST procedure are in the results section. RAINBOW LAB HOLD Routine 06/11/2019 4:29 Results for this TUBES AM EST procedure are in the results section. PATIENT TYPE Routine 06/11/2019 4:29 CONFIRMATION AM EST RAINBOW DRAW LAVENDER Routine 06/11/2019 4:29 TOP AM EST MAGNESIUM LEVEL Routine 06/11/2019 4:24 Results for this AM EST procedure are in the results section. BASIC METABOLIC PANEL Routine 06/11/2019 4:24 Results for this AM EST procedure are in the results section. TYPE AND SCREEN Routine 06/10/2019 2:59 Results for this PM EST procedure are in the results section. MAGNESIUM LEVEL Routine 06/10/2019 2:59 Results for this PM EST procedure are in the results section. BASIC METABOLIC PANEL Routine 06/10/2019 2:59 Results for this PM EST procedure are in the results section. PREPARE RED CELLS Routine 06/10/2019 2:33 Results for this LEUKOREDUCED PM EST procedure are in the results section. RAINBOW LAB HOLD Routine 06/10/2019 2:00 Results for this TUBES PM EST procedure are in the results section. RAINBOW DRAW LAVENDER Routine 06/10/2019 2:00 TOP PM EST documented in this encounter Results XR CHEST 2 VIEW PA AND LATERAL (STANDARD) (06/15/2019 9:08 AM EST) Specimen Impressions Performed At No acute pulmonary disease. THIS DOCUMENT HAS BEEN ELECTRONICALLY SIGNED BY MILLER CARTER MD Narrative Performed At PROCEDURE INFORMATION: Exam: XR Chest, 2 Views Exam date and time: 06/15/2019 8:55 AM Clinical history: 79 years old, female; Indication for study->post ppm/icd implant. Discharge pending results TECHNIQUE: Imaging protocol: XR of the chest Views: 2 views. COMPARISON: DX XR CHEST 1 VIEW 06/14/2019 12:12 PM FINDINGS: Tubes, catheters and devices: Stable left pacemaker and leads. There are superimposed leads. Lungs: Chronic interstitial lung markings. No focal consolidation. COPD. Pleural space: Unremarkable. No pleural effusion. No pneumothorax. Heart/Mediastinum: Stable mediastinal silhouette. Stable cardiac silhouette. Bones/joints: Unchanged osseous structures. Postsurgical change at the right humeral head. Procedure Note Interface, Rad Results - 06/15/2019 9:22 AM EST PROCEDURE INFORMATION: Exam: XR Chest, 2 Views Exam date and time: 06/15/2019 8:55 AM Clinical history: 79 years old, female; Indication for study->post ppm/icd implant. Discharge pending results TECHNIQUE: Imaging protocol: XR of the chest Views: 2 views. COMPARISON: DX XR CHEST 1 VIEW 06/14/2019 12:12 PM FINDINGS: Tubes, catheters and devices: Stable left pacemaker and leads. There are superimposed leads. Lungs: Chronic interstitial lung markings. No focal consolidation. COPD. Pleural space: Unremarkable. No pleural effusion. No pneumothorax. Heart/Mediastinum: Stable mediastinal silhouette. Stable cardiac silhouette. Bones/joints: Unchanged osseous structures. Postsurgical change at the right humeral head. IMPRESSION No acute pulmonary disease. THIS DOCUMENT HAS BEEN ELECTRONICALLY SIGNED BY MILLER CARTER MD RAINBOW DRAW LAVENDER TOP (06/15/2019 4:17 AM EST) Specimen Blood - Blood specimen (specimen) Performing Organization Address [facility] Phone Number [facility] [address] [place] [address] MAGNESIUM LEVEL (06/15/2019 4:17 AM EST) Magnesium 2.1 1.6 - 2.3 MG/DL [facility] Specimen Blood - Blood specimen (specimen) Performing Organization Address [facility] Phone Number [facility] [address] [place] [address] BASIC METABOLIC PANEL (06/15/2019 4:17 AM EST) Glucose 106 (H) 70 - 99 mg/dl [facility] BUN 10 7 - 17 mg/dl [facility] Creatinine 0.5 (L) 0.7 - 1.2 mg/dl [facility] Sodium 135 134 - 145 mmol/L [facility] Potassium 3.7 3.5 - 5.1 mmol/L [facility] Chloride 102 98 - 107 mmol/L [facility] CO2 26 22 - 30 mmol/L [facility] Calcium 8.8 8.3 - 10.1 mg/dl [facility] eGFR >60 See Interpretation [facility] Comment: Below ml/min/1.73ml GROUP Estimated GFR Interpretation: Sq LABORATORY Above 60ml/min/1.73m2 = Normal Renal Function 30-59 ml/min/1.73m2 = Stage 3 Chronic Kidney Disease 15-29 ml/min/1.73m2 = Stage 4 Chronic Kidney Disease Less than 15 ml/min/1.73m2 = Stage 5 Chronic Kidney Disease The GFR value is calculated using the Modification of Diet in Renal Disease ( MDRD) Study Equation which can be found at: https://www.kidney.org/content/ieie-kuflj-petvgvzi BUN/Creatinine 20 6 - 22 RATIO [facility] GROUP LABORATORY Anion Gap 7 3 - 11 mmol/L [facility] Specimen Blood - Blood specimen (specimen) Performing Organization Address City/State/Zipcode Phone Number [place] [facility] [address] [place] [place] [address] XR CHEST 1 VIEW (06/14/2019 1:18 PM EST) Specimen Impressions Performed At The lung donaldson show prominence to the pulmonary interstitium. THIS DOCUMENT HAS BEEN ELECTRONICALLY SIGNED BY JUMANA CUADRA MD Narrative Performed At PROCEDURE INFORMATION: Exam: XR Chest, 1 View Exam date and time: 06/14/2019 12:09 PM Clinical history: 79 years old, female; Indication for study->post ppm/icd implant TECHNIQUE: Imaging protocol: XR of the chest Views: 1 view. COMPARISON: No relevant prior studies available. FINDINGS: Tubes, catheters and devices: A pacemaker device is present, and its leads are in appropriate position. Lungs: The lung donaldson show prominence to the pulmonary interstitium. Pleural space: Unremarkable. No pleural effusion. No pneumothorax. Heart/Mediastinum: The heart is enlarged. Bones/joints: Status post right shoulder surgery Procedure Note Interface, Rad Results - 06/14/2019 1:23 PM EST PROCEDURE INFORMATION: Exam: XR Chest, 1 View Exam date and time: 06/14/2019 12:09 PM Clinical history: 79 years old, female; Indication for study->post ppm/icd implant TECHNIQUE: Imaging protocol: XR of the chest Views: 1 view. COMPARISON: No relevant prior studies available. FINDINGS: Tubes, catheters and devices: A pacemaker device is present, and its leads are in appropriate position. Lungs: The lung donaldson show prominence to the pulmonary interstitium. Pleural space: Unremarkable. No pleural effusion. No pneumothorax. Heart/Mediastinum: The heart is enlarged. Bones/joints: Status post right shoulder surgery IMPRESSION The lung donaldson show prominence to the pulmonary interstitium. THIS DOCUMENT HAS BEEN ELECTRONICALLY SIGNED BY JUMANA CUADRA MD RAINBOW DRAW LAVENDER TOP (06/14/2019 4:18 AM EST) Specimen Blood - Blood specimen (specimen) Performing Organization Address [facility] Phone Number [facility] [address] [place] [address] MAGNESIUM LEVEL (06/14/2019 4:18 AM EST) Magnesium 2.2 1.6 - 2.3 MG/DL [facility] Specimen Blood - Blood specimen (specimen) Performing Organization Address [facility] Phone Number [facility] [address] [place] [address] BASIC METABOLIC PANEL (06/14/2019 4:18 AM EST) Glucose 96 70 - 99 mg/dl [facility] BUN 15 7 - 17 mg/dl [facility] Creatinine 0.5 (L) 0.7 - 1.2 mg/dl [facility] Sodium 135 134 - 145 mmol/L [facility] Potassium 4.5 3.5 - 5.1 mmol/L [facility] Chloride 102 98 - 107 mmol/L [facility] CO2 27 22 - 30 mmol/L [facility] Calcium 8.7 8.3 - 10.1 mg/dl [facility] eGFR >60 See Interpretation [facility] Comment: Below ml/min/1.73ml GROUP Estimated GFR Interpretation: Sq LABORATORY Above 60ml/min/1.73m2 = Normal Renal Function 30-59 ml/min/1.73m2 = Stage 3 Chronic Kidney Disease 15-29 ml/min/1.73m2 = Stage 4 Chronic Kidney Disease Less than 15 ml/min/1.73m2 = Stage 5 Chronic Kidney Disease The GFR value is calculated using the Modification of Diet in Renal Disease ( MDRD) Study Equation which can be found at: https://www.kidney.org/content/waxk-zipct-hxkrwxfh BUN/Creatinine 30 (H) 6 - 22 RATIO [facility] LABORATORY Anion Gap 6 3 - 11 mmol/L [facility]ORATORY Specimen Blood - Blood specimen (specimen) Performing Organization Address [facility] Phone Number [facility] [address] [place] [address] RAINBOW DRAW LAVENDER TOP (06/13/2019 4:22 AM EST) Specimen Blood - Blood specimen (specimen) Performing Organization Address [facility] Phone Number [facility] [address] [place] [address] MAGNESIUM LEVEL (06/13/2019 4:22 AM EST) Magnesium 2.0 1.6 - 2.3 MG/DL [facility] Specimen Blood - Blood specimen (specimen) Performing Organization Address [facility] Phone Number [facility] [address] [place] [address] BASIC METABOLIC PANEL (06/13/2019 4:22 AM EST) Glucose 117 (H) 70 - 99 mg/dl [facility] BUN 14 7 - 17 mg/dl [facility] Creatinine 0.4 (L) 0.7 - 1.2 mg/dl [facility] Sodium 134 134 - 145 mmol/L [facility] Potassium 3.7 3.5 - 5.1 mmol/L [facility] Chloride 104 98 - 107 mmol/L [facility] CO2 23 22 - 30 mmol/L [facility] Calcium 8.8 8.3 - 10.1 mg/dl [facility] eGFR >60 See Interpretation [facility] Comment: Below ml/min/1.73ml GROUP Estimated GFR Interpretation: LABORATORY Above 60ml/min/1.73m2 = Normal Renal Function 30-59 ml/min/1.73m2 = Stage 3 Chronic Kidney Disease 15-29 ml/min/1.73m2 = Stage 4 Chronic Kidney Disease Less than 15 ml/min/1.73m2 = Stage 5 Chronic Kidney Disease The GFR value is calculated using the Modification of Diet in Renal Disease ( MDRD) Study Equation which can be found at: https://www.kidney.org/content/lkml-tyyxe-aqbwgcnn BUN/Creatinine 35 (H) 6 - 22 RATIO [facility] GROUP LABORATORY Anion Gap 7 3 - 11 mmol/L [facility] Specimen Blood - Blood specimen (specimen) Performing Organization Address City/State/Zipcode Phone Number [facility] [address] [place] ELECTROPHYSIOLOGY PROCEDURE (06/12/2019 3:57 PM EST) Specimen Narrative Performed At FINAL RESULT: ELECTROPHYSIOLOGY SERVICE [facility] POCT PULMONARY VEIN ISOLATION [facility] [address] [place] [phone] PATIENT: Cristina Holman SURGEON: Yves Espino MD : 1940 DATE OF SURGERY: 06/12/2019 PRE-OP Diagnosis: Atrial Fibrillation POST-OP Diagnosis: Atrial Fibrillation Procedure: Pulmonary Vein Isolation Anesthesia Type: JET Ventilation/General Anesthesia HISTORY: Ms. Cristina Holman is a 79-y.o. year old female was brought to the EP lab for pulmonary vein ablation for management of recurrent atrial fibrillation. Total duration of atrial fibrillation is more than 5 years. Past medical history includes: Past Medical History: Diagnosis Date Compression fracture of T12 vertebra (HCC) Essential hypertension 10/10/2018 Hypertension Non-rheumatic mitral regurgitation 10/10/2018 Persistent atrial fibrillation 10/10/2018 Medications: Current medications include: Betapace ramipril Xarelto Echocardiogram: dated 60%, shows ejection fraction 05/06/2019 PROCEDURES PERFORMED: (1) Intracardiac echocardiogram (2) Transseptal catheterization;(3) 3-D mapping of the left atrium (4) Pulmonary vein isolation (5) primary comprehensive electrophysiology study . (6) ElectroCardioversion (7) Ablation of right-sided isthmus PROCEDURE: The patient was premedicated with Protonix. After informed consent which included an extensive discussion regarding pros, cons, and risks of the procedure including, but not limited to, pericardial effusion, perforation, atrioesophageal fistula, mortality of 1:1000, and stroke risk of 1:200 (the patient stated understanding of the information), the patient was brought to the Electrophysiology Lab. The patient was sedated, intubated, and ventilated by anesthesiology service. For details, please see their records. An NG tube was then advanced into the esophagus and left at slightly above the tracheal bifurcation and utilized to infuse ice cold saline so as to drop the temperature as recorded by temperature probe. Circa temperature probe was then inserted and positioned to record esophageal temperatures. Infusion was adjusted throughout the procedure so as to drop the esophageal temperature by at least half a degree centigrade. The intracardiac ablation was stopped if the esophageal catheter showed rise of temperature above 38 degrees centigrade. The patient was anticoagulated throughout the procedure to maintain ACT levels between 300 to 350 seconds. For details, please see accompanying protocol. Left radial artery was cannulated and was utilized for hemodynamic monitoring. INTRACARDIAC ECHOCARDIOGRAM: The patient was prepped and draped in the usual sterile manner. An additional 10 Romanian venous sheath was introduced and advanced to the right mid atrium and flushed with Heparin containing solution. An intracardiac echocardiographic catheter by was then advanced. The inferior vena cava, lower right atrium, mid atrium, and superior vena cava were visualized. The catheter was retroflexed so as to allow visualization of septum and left and pulmonary veins during transseptal catheterization and subsequently, to monitor the pericardial space by moving the catheter to the right ventricle. TRANSSEPTAL CATHETERIZATION: The right femoral vein was then cannulated using Agilis sheath over a 0.032 guidewire. Irving transseptal needle was then advanced and flushed with heparin-containing solution. Right atrial pressures were recorded and were utilized to adjust the intravenous fluid status as well as to guide transseptal catheterization. The needle, dilator, and Agilis sheath assembly was brought down to the mid-septum and tenting of the fossa was seen. Using continuous hemodynamic pressure monitoring, ultrasound visualization as well as fluoroscopy confirmation, transseptal catheterization was performed. Specifically, RF energy was applied to the Irving needle and transseptal puncture was accomplished. Upon entry into the left atrium, left atrial pressures were recorded and dilator assembly was gently advanced. The needle was then withdrawn as the dilator sheath assembly entered the left atrium. Subsequently, the dilator was withdrawn as the sheath was advanced. While removing the sheath and dilator assembly, the Agilis sheath was aspirated and then connected to heparinized saline under pressure so as to maintain patency and prevent any clotting of the Agilis sheath. 3-D Mapping of left Atrium -This Agilis sheath was then utilized to manipulate the mapping catheter so as to create a 3-D anatomy of the left atrium. A 20 pole catheter was utilized to create a 3-D anatomy by roving the catheter into all four pulmonary veins and withdrawing them gently, demarking boundaries of the veins with the atrium and recreating the antra as well as left atrial appendage. A 3-D reconstruction was done using Precise mapping system by . LEFT ATRIAL RECORD: The left femoral vein was cannulated using 7- burmese venous sheath and was utilized to advance a Duo-Deca catheter capable of mapping the mitral annulus, right side isthmus and capable of pacing and recording both left and right atrium. The shortest AV interval varied from 260 milliseconds was recorded from the proximal pairs of electrodes and to 20 milliseconds to the distal pairs. Electrocardioversion Prior to performing pulmonary vein isolation patient was cardioverted to sinus rhythm using 360 J of synchronized shock. PULMONARY VEIN ISOLATION: Pulmonary vein ablation was carried out using TactiCath by Etelos which was now passed through the Agilis sheath. The Agilis sheath was utilized to manipulate the TactiCath so as to apply a series of sequential overlapping lesions around the antra. Maximum output was set at 50 barnes and maximum temperature was set at 40 C. Contact force was maintained between 10 and 40 grams and lesion index above 6 was achieved for all lesions. The output was reduced to 20 barnes as needed. The lesions were registered as: Loss of capture During the lesions on the posterior wall, care was taken to be as far away from the esophagus and the procedure was completed. Both antra were isolated with entrance and exit block. PRIMARY COMPREHENSIVE ELECTROPHYSIOLOGY STUDY: Average A-H interval was 220 milliseconds and average H-V interval was 48 milliseconds. Averaged cycle length was 968 milliseconds. SINUS NODE RECOVERY TIME: SNRT was then assessed by indirect method by pacing the high right atrium close to the sinus node region for a period of one minute and assessing the time taken for sinus node recovery. SNRT time was then corrected for basic cycle length. By this method, the SNRT was 1.45 seconds; the longest corrected SNRT was 530 milliseconds. INCREMENTAL ATRIAL PACING: IAP was then performed by decrementing the cycle length progressively from PCL 700 seconds in steps of 100, 40, and then 20 milliseconds, until Wenckebach block in the AV node occurred. Longest cycle length for AV neha Wenckebach block was 570 milliseconds. The right-side isthmus was reablated and a delay of 100 milliseconds was achieved. PROGRAMMED ATRIAL STIMULATION: PAS was then performed at a basic drive of 600 milliseconds. The effective refractory period of AV node was assessed to be 490 milliseconds. The ERP of the atrium was assessed to be 240 milliseconds. Post PVI ablation with burst pacing, right isthmus dependent atrial flutter was induced. The right side isthmus was ablated and delay of 100 milliseconds was identified. There was evidence of bidirectional block. Post ablation burst pacing did induce atrial fibrillation and patient was cardioverted to sinus rhythm Anticoagulation was reversed using IV Protamine. All sheaths were removed, and the patient was extubated. The patient was moved to the PRU. COMPLICATIONS: None CONCLUSION: 1. Successful isolation of pulmonary veins with both antra. #2 large right and left atrium. 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 The LA interval exceeds 300 ms in view of this a dual-chamber pacemaker and possibly his lead would be the best option Author: Yves Espino MD 06:52 06/13/19 SECTION OF CARDIOLOGY Performing Organization Address [facility] Phone Number [facility] PO[facility] [place] [address] ACT-LOW RANGE (POCT) (06/12/2019 3:48 PM EST) [facility] ACT-LR (POCT) 186 POINT OF CARE Comment: TESTING Reference Range = 70-120 sec Cardiopulmonary bypass (CPB) pt, cannulation = 480-800 sec CPB pt, to go on bypass, min value on bypass = 400 sec Target range, heparinized PTCA = 200-350 sec Stent = > 300 sec Pulling Sheaths = < 180 sec Angioplasty / TAVR = 250-300 sec (upon Dr's discretion) Performed at: [facility] POCT Rigo Vasques MD, Laboratory Housekeeper Caregiver [address] [facility] [place] [place] [place] [address] Specimen Performing Organization Address [facility] Phone Number POINT OF CARE TESTING ACT-LOW RANGE (POCT) (06/12/2019 3:14 PM EST) [facility] ACT-LR (POCT) 301 POINT OF CARE Comment: TESTING Reference Range = 70-120 sec Cardiopulmonary bypass (CPB) pt, cannulation = 480-800 sec CPB pt, to go on bypass, min value on bypass = 400 sec Target range, heparinized PTCA = 200-350 sec Stent = > 300 sec Pulling Sheaths = < 180 sec Angioplasty / TAVR = 250-300 sec (upon Dr's discretion) Performed at: [facility] POCT Rigo Vasques MD, Laboratory Housekeeper Caregiver [address] [place] [address] Specimen Performing Organization Address [facility] Phone Number POINT OF CARE TESTING ACT-LOW RANGE (POCT) (06/12/2019 2:42 PM EST) ACT-LR (POCT) 147 POINT OF CARE Comment: TESTING Reference Range = 70-120 sec Cardiopulmonary bypass (CPB) pt, cannulation = 480-800 sec CPB pt, to go on bypass, min value on bypass = 400 sec Target range, heparinized PTCA = 200-350 sec Stent = > 300 sec Pulling Sheaths = < 180 sec Angioplasty / TAVR = 250-300 sec (upon Dr's discretion) Performed at: [facility] POCT Rigo Vasques MD, Laboratory Housekeeper Caregiver [address] [place] [address] Specimen Performing Organization Address [facility] Phone Number POINT OF CARE TESTING MAGNESIUM LEVEL (06/12/2019 4:08 AM EST) Magnesium 2.0 1.6 - 2.3 MG/DL [facility] Specimen Blood - Blood specimen (specimen) Performing Organization Address [facility] Phone Number [facility] [address] [place] [address] [phone] BASIC METABOLIC PANEL (06/12/2019 4:08 AM EST) Glucose 100 (H) 70 - 99 mg/dl [facility] BUN 19 (H) 7 - 17 mg/dl [facility] Creatinine 0.6 (L) 0.7 - 1.2 mg/dl [facility] Sodium 137 134 - 145 mmol/L [facility] Potassium 4.0 3.5 - 5.1 mmol/L [facility] Chloride 104 98 - 107 mmol/L [facility] CO2 24 22 - 30 mmol/L [facility] Calcium 9.0 8.3 - 10.1 mg/dl [facility] eGFR >60 See Interpretation [facility] Comment: Below ml/min/1.73ml GROUP Estimated GFR Interpretation: LABORATORY Above 60ml/min/1.73m2 = Normal Renal Function 30-59 ml/min/1.73m2 = Stage 3 Chronic Kidney Disease 15-29 ml/min/1.73m2 = Stage 4 Chronic Kidney Disease Less than 15 ml/min/1.73m2 = Stage 5 Chronic Kidney Disease The GFR value is calculated using the Modification of Diet in Renal Disease ( MDRD) Study Equation which can be found at: https://www.kidney.org/content/whgc-pzkua-cbkkwjeo BUN/Creatinine 32 (H) 6 - 22 RATIO [facility] LABORATORY Anion Gap 9 3 - 11 mmol/L [facility] Specimen Blood - Blood specimen (specimen) Performing Organization Address [facility] Phone Number [facility] [address] [place] [address] PATIENT TYPE CONFIRMATION (06/11/2019 4:29 AM EST) Specimen Blood - Blood specimen (specimen) Performing Organization Address [facility]/Zipcode Phone Number [facility] [place] [address] RAINBOW DRAW LAVENDER TOP (06/11/2019 4:29 AM EST) Specimen Blood - Blood specimen (specimen) Performing Organization Address [facility] Phone Number [facility] [address] [place] [address] MAGNESIUM LEVEL (06/11/2019 4:24 AM EST) Magnesium 1.9 1.6 - 2.3 MG/DL [facility] Specimen Blood - Blood specimen (specimen) Performing Organization Address [facility] Phone Number [facility] [address] [place] [address] [phone] BASIC METABOLIC PANEL (06/11/2019 4:24 AM EST) Glucose 102 (H) 70 - 99 mg/dl [facility] BUN 13 7 - 17 mg/dl [facility] Creatinine 0.5 (L) 0.7 - 1.2 mg/dl [facility] Sodium 137 134 - 145 mmol/L [facility] Potassium 3.6 3.5 - 5.1 mmol/L [facility] Chloride 105 98 - 107 mmol/L [facility] CO2 26 22 - 30 mmol/L [facility] Calcium 9.2 8.3 - 10.1 mg/dl [facility] eGFR >60 See Interpretation [facility] Comment: Below ml/min/1.73ml GROUP Estimated GFR Interpretation: Sq LABORATORY Above 60ml/min/1.73m2 = Normal Renal Function 30-59 ml/min/1.73m2 = Stage 3 Chronic Kidney Disease 15-29 ml/min/1.73m2 = Stage 4 Chronic Kidney Disease Less than 15 ml/min/1.73m2 = Stage 5 Chronic Kidney Disease The GFR value is calculated using the Modification of Diet in Renal Disease ( MDRD) Study Equation which can be found at: https://www.kidney.org/content/khdu-frjfz-hdvfnaue BUN/Creatinine 26 (H) 6 - 22 RATIO [facility] LABORATORY Anion Gap 6 3 - 11 mmol/L [facility] Specimen Blood - Blood specimen (specimen) Performing Organization Address [facility] Phone Number [facility] [address] [place] [address] MAGNESIUM LEVEL (06/10/2019 2:59 PM EST) Magnesium 2.0 1.6 - 2.3 MG/DL [facility] Specimen Blood - Blood specimen (specimen) Performing Organization Address [facility] Phone Number [facility] [address] [place] [address] [phone] BASIC METABOLIC PANEL (06/10/2019 2:59 PM EST) Glucose 100 (H) 70 - 99 mg/dl [facility] BUN 14 7 - 17 mg/dl [facility] Creatinine 0.5 (L) 0.7 - 1.2 mg/dl [facility] Sodium 138 134 - 145 mmol/L [facility] Potassium 4.2 3.5 - 5.1 mmol/L [facility] Chloride 101 98 - 107 mmol/L [facility] CO2 25 22 - 30 mmol/L [facility] Calcium 9.6 8.3 - 10.1 mg/dl [facility] eGFR >60 See Interpretation [facility] Comment: Below ml/min/1.73ml GROUP Estimated GFR Interpretation: Sq LABORATORY Above 60ml/min/1.73m2 = Normal Renal Function 30-59 ml/min/1.73m2 = Stage 3 Chronic Kidney Disease 15-29 ml/min/1.73m2 = Stage 4 Chronic Kidney Disease Less than 15 ml/min/1.73m2 = Stage 5 Chronic Kidney Disease The GFR value is calculated using the Modification of Diet in Renal Disease ( MDRD) Study Equation which can be found at: https://www.kidney.org/content/wbuo-clszt-tvdzaiar BUN/Creatinine 28 (H) 6 - 22 RATIO [facility] LABORATORY Anion Gap 12 (H) 3 - 11 mmol/L [facility] Specimen Blood - Blood specimen (specimen) Performing Organization Address City/[facility]/Zipcode Phone Number [facility] [address] [place] [address] [phone] TYPE AND SCREEN (06/10/2019 2:59 PM EST) ABO/RH Type A POS [facility] Antibody Screen Interp NEG [facility] Specimen Blood - Blood specimen (specimen) Performing Organization Address [facility]/Zipcode Phone Number [facility] [place] [address] PREPARE RED CELLS LEUKOREDUCED (06/10/2019 2:33 PM EST) RED CELLS RCL4 RED CELLS LR [facility] [id number] released compatible 06/13/19 06:24 TJOH UTYPE A POS [facility] BLOOD RH POS [facility] UPROD RCL4 [facility] UNIT# [id number] [facility] DISPSTATUS released [facility] NUMBER =[id number] [facility] PRODUCT CODE [id number] [facility] BLOOD ABO 6200 [facility] EXPIRATION DATE [id number] [facility] RED CELLS RCL4 RED CELLS LR [facility] [id number] released compatible 06/13/19 06:24 TJOH UTYPE A POS [facility] BLOOD RH POS [facility] UPROD RCL4 [facility]# [id number] [facility] DISPSTATUS released [facility] UNIT NUMBER =[id number] [facility] PRODUCT CODE [id number] [facility] UNIT BLOOD ABO 6200 [facility] EXPIRATION DATE [id number] [facility] RED CELLS RCL4 RED CELLS LR [facility] [id number] released compatible 06/13/19 06:24 TJOH UTYPE A POS [facility] UN[facility] BLOOD RH POS [facility] UPROD RCL4 [facility] UN[facility]# [id number] [facility] DISPSTATUS released [facility] UNIT NUMBER =[id number] [facility] PRODUCT CODE [id number] [facility] UNIT BLOOD ABO 6200 [facility] EXPIRATION DATE [id number] [facility] RED CELLS RCL4 RED CELLS LR [facility] [id number] released compatible 06/13/19 06:24 TJOH UTYPE A POS [facility] BLOOD RH POS [facility] UPROD RCL4 [facility] UNIT# [id number] [facility] DISPSTATUS released [facility] UNIT NUMBER =[id number] [facility] PRODUCT CODE [id number] [facility] UNIT BLOOD ABO 6200 [facility] EXPIRATION DATE [id number] [facility] Specimen Performing Organization Address City/State/Zipcode Phone Number [facility] [place] [address] RAINBOW DRAW LAVENDER TOP (06/10/2019 2:00 PM EST) Specimen Blood - Blood specimen (specimen) Performing Organization Address City/[facility]/Zipcode Phone Number [facility] [address] [place] [address] documented in this encounter Visit Diagnoses Diagnosis Atrial fibrillation, unspecified type (HCC) Sinus node dysfunction (HCC) Sinoatrial node dysfunction documented in this encounter Administered Medications Medication Order MAR Action Action Date Dose Rate Site acetaminophen (TYLENOL) tablet Given 06/15/2019 5:47 AM EST 650 mg 650 mg 650 mg, Oral, Q4 HRS PRN, Starting 06/10/19 at 1432, Until 06/15/19 at 1519, headache Given 06/14/2019 2:48 PM EST 650 mg Given 06/13/2019 12:04 AM EST 650 mg aluminum & magnesium hydroxide-simethicone II (MYLANTA II) oral suspension 400-400-40 MG/5ML 30 mL, Oral, Q4 HRS PRN, Starting Mon06/10/19 at 1432, Until 06/15/19 at 1519, Heartburn - 1st line aluminum & magnesium hydroxide-simethicone II Given 06/13/2019 8:23 AM EST 30 mL (MYLANTA II) oral suspension 400-400-40 MG/5ML 30 mL, Oral, Q4 HRS, First dose on Mon06/12/19 at 1250, Until Discontinued Given 06/13/2019 5:06 AM EST 30 mL Given 06/13/2019 12:50 AM EST 30 mL cefazolin (ANCEF, KEFZOL) injection 1,000 Given 06/14/2019 7:30 AM EST 1, 000 mg mg 1,000 mg, Intravenous Push, X1, 1 dose, First dose on Mon06/14/19 at 0730, 2 Day of Surgery Pre Procedure, IV push in EP lab prior to procedure ( obtain from cath laboratory technician acudlizeth), cefazolin (ANCEF, KEFZOL) IV mixture 500 New Bag 06/14/2019 10:00 PM EST 500 mg mg 500 mg, Intravenous, Q8 HRS, 3 doses, First dose on Mon06/14/19 at 1200, Last dose on Mon06/14/19 at 2200, TIME 4 HRS AFTER PRE OP DOSE, New Bag 06/14/2019 2:47 PM EST 500 mg enoxaparin (LOVENOX) injection Given 06/11/2019 6:12 PM EST 60 mg Abdominal Tissue 60 mg/0.6 mL 60 mg 60 mg, Subcutaneous, Q12 HRS, 3 doses, First dose (after last modification) on Mon06/10/19 at 1800, Last dose on Mon06/11/19 at 1800, Lovenox (enoxaparin): Lovenox is rounded to the nearest 10 mg per hospital policy. - CAUTION & CONSIDER Heparin Xa (anti-Xa levels): CrCl < 30 mL/min; Women < 45 kg; Men < 57 kg; Weight > 150 kg or BMI > 40 kg/m2; , Pediatrics and Elderly patients - Treatment dose: 1 mg/kg q12h - Prophylactic dose: 40 mg q24h OR 30 mg q12h , Given 06/11/2019 5:42 AM EST 60 mg Abdominal Tissue Given 06/10/2019 5:48 PM EST 60 mg Abdominal Tissue enoxaparin (LOVENOX) injection Given 06/13/2019 11:00 PM EST 60 mg Abdominal Tissue 60 mg/0.6 mL 60 mg 60 mg, Subcutaneous, Q12 HRS, 2 doses, First dose on Rachel 06/13/19 at 0940, Last dose on Rachel 06/13/19 at 2140, Lovenox (enoxaparin): Lovenox is rounded to the nearest 10 mg per hospital policy. - CAUTION & CONSIDER Heparin Xa (anti-Xa levels): CrCl < 30 mL/min; Women < 45 kg; Men < 57 kg; Weight > 150 kg or BMI > 40 kg/m2; , Pediatrics and Elderly patients - Treatment dose: 1 mg/kg q12h - Prophylactic dose: 40 mg q24h OR 30 mg q12h , Given 06/13/2019 9:02 AM EST 60 mg Abdominal Tissue HOLD MEDICATION Acknowledged HOLD order 06/14/2019 7:30 AM EST 0 Does not apply, HOLD PER COMMENTS, 1 dose, First dose on Mon06/14/19 at 0730, 2 Day of Surgery Pre Procedure, Hold AM dose of Diuretics on the day of procedure unless otherwise specified, LORazepam (ATIVAN) tablet (1/2X0.5mg) 0.25 mg 0.25 mg, Oral, TID PRN, Starting 06/10/19 at 1432, Until 06/15/19 at 1519, Anxiety - PO - 1st line - if immediate effect not required and patient can tolerate PO magnesium hydroxide (MILK OF MAGNESIA) 400 Given 06/13/2019 3:37 PM EST 30 mL MG/5ML oral suspension 30 mL 30 mL, Oral, DAILY PRN, Starting 06/10/19 at 1432, Until 06/15/19 at 1519, Constipation 1st line if no stooling in last 24 hours magnesium sulfate IV premix 1 g New Bag 06/11/2019 10:36 AM EST 1 g 1 g, Intravenous, NOW, 1 dose, 06/11/19 at 0930 normal saline IV New Bag 06/12/2019 2:58 PM EST Intravenous, at 30 mL/hr, CONTINUOUS, Starting Mon06/12/19 at 0600, Until Mon06/12/19 at 1726, 2 Day of Surgery Pre Procedure, Normal Saline at 30 mL via pump with extension tubing in Left arm at 6 am, New Bag 06/12/2019 6:07 AM EST 1,000 mL 30 mL/hr normal saline IV New Bag 06/14/2019 8:19 AM EST 30 mL/hr Intravenous, at 30 mL/hr, CONTINUOUS, Starting Mon06/14/19 at 0730, Until Mon06/14/19 at 1202, 2 Day of Surgery Pre Procedure, Normal Saline at 30 mL via pump with extension tubing in Left arm at 6 am, pantoprazole (PROTONIX) enteric coated tablet Given 06/15/2019 9:29 AM EST 40 mg 40 mg 40 mg, Oral, DAILY, First dose on Mon06/10/19 at 1440, Until Discontinued, This medication dosage form should NOT be crushed. Please call the inpatient Pharmacy for more information. [facility] ext. [phone] [place] ext. [phone] [facility] ext. [phone] , Given 06/14/2019 8:18 AM EST 40 mg Given 06/13/2019 8:23 AM EST 40 mg potassium chloride (K-DUR) controlled Given 06/11/2019 10:36 AM EST 40 mEq release tablet 40 mEq 40 mEq, Oral, X1, 1 dose, First dose on Mon06/11/19 at 1030, Per the Package Insert, if the patient is having difficulty swallowing whole tablets, place the tablet in approximately 4 fluid ounces of water. Allow 2 minutes for the tablet (s) to disintegrate. Stir for 30 seconds after the tablet has disintegrated. Swirl the suspension and have the patient consume the entire contents of the glass immediately by drinking or by the use of a straw. Add another 1 fluid ounce of water, swirl and consume immediately. Then add an additional 1 fluid ounce of water, swirl and consume immediately. Aqueous suspension of K-Dur tablets that is not taken immediately should be discarded. The use of other liquids for suspending K-Dur tablets is not recommended., potassium chloride (K-DUR) controlled Given 06/13/2019 10:12 AM EST 40 mEq release tablet 40 mEq 40 mEq, Oral, X1, 1 dose, First dose on Mon06/13/19 at 1050, Per the Package Insert, if the patient is having difficulty swallowing whole tablets, place the tablet in approximately 4 fluid ounces of water. Allow 2 minutes for the tablet (s) to disintegrate. Stir for 30 seconds after the tablet has disintegrated. Swirl the suspension and have the patient consume the entire contents of the glass immediately by drinking or by the use of a straw. Add another 1 fluid ounce of water, swirl and consume immediately. Then add an additional 1 fluid ounce of water, swirl and consume immediately. Aqueous suspension of K-Dur tablets that is not taken immediately should be discarded. The use of other liquids for suspending K-Dur tablets is not recommended., ramipril (ALTACE) capsule 2.5 mg Given 06/15/2019 9:29 AM EST 2.5 mg 2.5 mg, Oral, DAILY, First dose on Mon06/10/19 at 1440, Until Discontinued Given 06/14/2019 8:18 AM EST 2.5 mg Given 06/13/2019 8:23 AM EST 2.5 mg sennosides-docusate sodium (SENOKOT-S, SENNA S) 8.6-50 mg 1 Tab 1 Tab, Oral, BID PRN, Starting Mon06/10/19 at 1432, Until 06/15/19 at 1519 , Constipation - 2nd line if no stooling 8 hours after administration of 1st line agent , if MOM ineffective or patient refuses MOM, if MOM ineffective or patient refuses MOM, silver sulfadiazine (THERMAZENE, SILVADENE) topical cream 1 % Topical, TID PRN, Starting Mon06/12/19 at 1246, Until 06/15/19 at 1519, Treatment to use during wound care/dressing changes, Apply to reddened areas on anterior and posterior chest, Apply to reddened areas on anterior and posterior chest, silver sulfadiazine (THERMAZENE, SILVADENE) topical cream 1 % Topical, TID PRN, Starting Mon06/14/19 at 1158, Until 06/15/19 at 1519, Treatment to use during wound care/dressing changes, Apply to reddened areas on anterior and posterior chest, Apply to reddened areas on anterior and posterior chest, SODIUM CHLORIDE 0.9 % IV SOLN 1 dose, Starting Mon06/12/19 at 0548, Until Mon06/12/19 at 0607, Mame Cazares: cabinet override, Mame Cazares: cabinet override, SODIUM CHLORIDE 0.9 % IV SOLN 1 dose, Starting Rachel 06/13/19 at 0442, Until 06/15/19 at 1519, Arnulfo Wing : cabinet override, Arnulfo Wing: cabinet override, sotalol (BETAPACE) tablet 80 mg Given 06/15/2019 6:00 AM EST 80 mg 80 mg, Oral, BID, First dose on Mon06/10/19 at 1440, Until Discontinued, For any NEW patient starting therapy with Sotalol (BETAPACE) or for dose escalation on ANY patient, the following must be done to monitor for QTc prolongation: Baseline EKG (prior to first dose or dose escalation) EKG 2-3 hours after EVERY administration of Sotalol (BETAPACE) Provider MUST be notified if QTc exceeds 500 msec (550 msec in patients with ventricular conduction abnormalities) , Given 06/14/2019 5:21 PM EST 80 mg Given 06/14/2019 6:16 AM EST 80 mg sucralfate (CARAFATE) oral suspension Given 06/11/2019 6:12 PM EST 1,000 mg 1,000 mg 1,000 mg, Oral, Q6 HRS, 5 doses, First dose on Mon06/10/19 at 1800, Last dose on Mon06/11/19 at 1800, Agitate suspension well prior to administration of each dose. If receiving tube feeding, stop infusion, flush tube with sterile water (30 mL for a PEG tube; 60 mL for an OG or NG tube), administer sucralfate and flush tube with sterile water (30 mL for a PEG tube; 60 mL for an OG or NG tube) before restarting tube feeding., Given 06/11/2019 12:35 PM EST 1,000 mg Given 06/11/2019 5:42 AM EST 1,000 mg zolpidem (AMBIEN) tablet (1/2X5mg) 2.5 mg 2.5 mg, Oral, QHS PRN, Starting Mon06/10/19 at 1432, Until 06/15/19 at 1519, Sleep/Insomnia - 1st line documented in this encounter Insurance Payer Benefit Plan / Subscriber ID Effective Dates Phone Address Type Group MEDICARE MEDICARE PART A xxxxxxxxxxx 2007-Present Medicare & B AETNA COMMERCIAL AETNA xxxxxxxxxx 2017-Present Aetna documented as of this encounter Advance Directives Code Status Date Activated Date Inactivated Comments Full Code 06/10/2019 2:33 PM Does the patient have decision making Yes capacity? Order was discussed with: Unable to determine at this time I discussed all options and Unable to determine at this time (full patient/surrogate requested and agreed to: code until choice is made and new order placed) Full Code 03/19/2019 6:46 AM 06/10/2019 2:26 PM Does the patient have decision making capacity? Yes Order was discussed with: Patient I discussed all options and patient/surrogate requested and agreed to: Full Code
--- OUTSIDE RECORDS SUMMARY | 2019-08-05 18:16 | XMS REPORT | Summary of Care ---
:1940 Author Organization [facility] Address [address] [place] [address] Care Team Providers Name Role Phone Sarai vIy NP Primary Care Provider Reason for Visit Reason Comments Follow Up Atrial Fibrillation Encounter Details Date Type Department Care Team Description 07/12/2019 Office Visit [facility] Alvin Casas NP Paroxysmal A-fib (HCC) (Primary Dx); [address] Sinus node dysfunction (HCC); [place] [id number] [place] [address] AV node dysfunction; [phone] Essential hypertension Allergies No Known Allergiesdocumented as of this encounter (statuses as of 07/12/2019) Medications Medication Sig Dispensed Refills Start Date End Date Status potassium chloride Take 10 mEq 0 Active (MICRO-K) 10 MEQ by mouth Oral Cap CR DAILY. alpha-tocopherol Take 400 0 Active (VITAMIN E) 400 UNIT Units by Oral Cap mouth DAILY. Cholecalciferol Take 1 Cap 0 Active (VITAMIN D3) 5000 by mouth units Oral Cap DAILY. [place]-3 Fatty Acids Take 1,360 0 Active (OMEGA-3 FISH OIL mg by mouth PO) DAILY. Multiple Take 1 Tab 0 Active Vitamins-Minerals by mouth (CENTRUM SILVER DAILY. 50+WOMEN) Oral Tab Coenzyme Q10 (CO Take 1 Cap 30 Cap 0 10/16/2018 Active Q-10) 400 MG Oral by mouth Cap DAILY. ramipril (ALTACE) Take 1 Cap 90 Cap 3 12/31/2018 Active 2.5 MG Oral Cap by mouth DAILY. rivaroxaban Take 1 Tab 90 Tab 3 03/12/2019 Active (XARELTO) 20 MG Oral by mouth Tab DAILY. diltiazem (CARDIZEM) Take 1 Tab 30 Tab 2 03/22/2019 Active 30 MG Oral Tab by mouth DAILY NEEDED (Heart Palpitaiton s). pantoprazole Take 1 Tab 30 Tab 0 06/14/2019 Active (PROTONIX) 40 MG by mouth 9 Oral Tab EC DAILY for 30 days. Start one week prior to procedure. sotalol (BETAPACE) Take 0.5 180 Tab 3 07/12/2019 Active 80 MG Oral Tab Tabs by mouth TWICE DAILY. propranolol (INDERAL Take 1 Cap 90 Cap 0 07/12/2019 Active LA) 120 MG Oral by mouth CAPSULE SR 24 HR DAILY. sotalol (BETAPACE) Take 1 Tab 180 Tab 3 06/14/2019 Discontinued 80 MG Oral Tab by mouth 9 (Reorder) TWICE DAILY for 90 days. documented as of this encounter (statuses as of 07/12/2019) Active Problems Problem Noted Date AV node dysfunction 06/17/2019 Sinus node dysfunction 06/13/2019 Atrial fibrillation 05/06/2019 Overview: Added automatically from request for surgery [id number] Paroxysmal A-fib 02/28/2019 Overview: Added automatically from request for surgery [id number] Persistent atrial fibrillation 10/10/2018 Essential hypertension 10/10/2018 Non-rheumatic mitral regurgitation 10/10/2018 documented as of this encounter (statuses as of 07/12/2019) Social History Tobacco Use Types Packs/Day Years [...] Sign Reading Time Taken Comments Blood Pressure 130/70 07/12/2019 1:47 PM EST Pulse 70 07/12/2019 1:47 PM EST Temperature - - Respiratory Rate - - Oxygen Saturation - - Inhaled Oxygen Concentration - - Weight 57.2 kg (126 lb) 07/12/2019 1:47 PM EST Height 162.6 cm (5' 4") 07/12/2019 1:47 PM EST Body Mass Index 21.63 07/12/2019 1:47 PM EST documented in this encounter Patient Instructions Patient InstructionsAlvin Casas NP - 07/12/2019 2:00 PM EST Provider's Instructions Reason for Visit to Cardiology: 1. Paroxysmal A-fib (HCC) 2. Sinus node dysfunction (HCC) 3. AV node dysfunction 4. Essential hypertension General Instructions: Drink plenty of fluid Do not restrict salt. Medications: Decrease Sotalol to 40 mg twice a day. Start Propranolol 120 mg daily. Activity/Restrictions: Activity as tolerated. Discharge Diet: Heart Healthy Follow Up Care: Please call with any concerns [phone] Plan visit in one month for recheck after medication change. Time: 14:23 Smoking: If you or your caregiver smoke, we recommend that you quit. For smoking cessation help, please callthe [facility] Quit Line at . If you feel that your condition, or the condition of the person you are responsible for, is getting worse or if you develop new symptoms, please call. If you feel your condition is an emergency pleasego to the closest Emergency Department for evaluation. *Please Return Patient Satisfaction Survey* Thank you for letting me take part in your care. Sincerely, ROMANA Dee documented in this encounter Plan of Treatment Date Type Specialty Care Team Description 08/09/2019 Orders Only Cardiology 08/09/2019 Office Visit Cardiology Alvin Casas NP [address] [place] [address] [phone] 10/22/2019 [facility] 01/27/2020 Office Visit [facility] Health Maintenance Due Date Last Done Comments MEDICARE ANNUAL WELLNESS VISIT 1940 DTaP/Tdap/Td Vaccines (1 - Tdap) 1953 DEPRESSION SCREENING 1954 HIV SCREENING 1957 ZOSTER IMMUNIZATION SERIES (1 of 2) 1992 FALL RISK ASSESSMENT 2007 OSTEOPOROSIS SCREENING 2007 PNEUMOCOCCAL 65+YRS (1 of 2 - 2007 PCV13) INFLUENZA VACCINE (#1) 2019 HEPATITIS A IMMUNIZATION SERIES Aged Out No longer eligible based on patient's age to complete this topic HPV IMMUNIZATION SERIES Aged Out No longer eligible based on patient's age to complete this topic MENINGOCOCCAL VACCINE IMM Aged Out No longer eligible based on patient's age to complete this topic documented as of this encounter Implants Implanted Type Area Classics Professor Device Shelf Model / Identifier Expiration Date Serial / Lot Lead, Tendril Mri [id number] - [id number] [employer], 2020 [id number] / Implanted: Qty: 1 on 06/14/2019 by Yves Espino MD at [facility] [id number] / Lead, Tendril Mri [id number] - [id number] [employer], 2019 [id number] / Implanted: Qty: 1 on 06/14/2019 by Yves Espino MD at [facility]. [id number] / Select Secure Lead [id number] - [id number] [employer] 02/26/2021 [id number] / Implanted: Qty: 1 on 06/14/2019 by Yves Espino MD at [facility] [id number] / [id number] [employer] Rn-Rf - [id number] [employer], 04/29/2020 [id number] / Implanted: Qty: 1 on 06/14/2019 by Yves Espino MD at [facility]. [id number] / documented as of this encounter Results Not on filedocumented in this encounter Visit Diagnoses Diagnosis Paroxysmal A-fib (HCC) Atrial fibrillation Sinus node dysfunction (HCC) Sinoatrial node dysfunction AV node dysfunction Other specified conduction disorder Essential hypertension Unspecified essential hypertension documented in this encounter Insurance Payer Benefit [...]
--- OUTSIDE RECORDS SUMMARY | 2019-08-05 18:16 | XMS REPORT | Continuity of Care Document ---
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 Onset: 04/27/2011 Basal Cell Carcinoma Skin Of Other & Sarai Ivy N.P. Onset: 04/27/2011 Unspecified Parts Of Face Essential hypertension Sarai Ivy, N.P. Onset: 12/22/2015 Full thickness rotator cuff tear Judah Segura MD Onset: 10/17/2017 Localized, primary osteoarthritis of the Judah Segura MD Onset: 05/25/2018 shoulder region Localized, primary osteoarthritis Bakari Louis MD Onset: 12/04/2018 Social History Type Date Description Comments Sex Unknown Tobacco Use Start: Unknown Never Smoked Cigarettes Tobacco Use Start: Unknown Secondhand smoke As a child, both parents smoked. 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 Maintaining home Allergies, Adverse Reactions, Alerts Active Allergies Reaction Severity Comments Date No Known Drug Allergy 03/30/2010 Medications Active Medications SIG Qnty Indications Ordering Date Provider Diclofenac Sodium 3 crams topically 2-4 300gm M17.11 Bakari Quiñonez 12/04/2018 times a day as needed, MD Missy 3% Gel generic Ok Patient on Xarelto, NSAIDs contraindicated Potassium Chloride 1 by mouth every day 90caps I48.91 Sarai Ivy, 10/01 ER N.P. 10Meq Capsules ER Ramipril 1 by mouth every day 90caps I48.91 Yessy Andersen, 09/13/2018 2.5mg N.P. Capsules Xarelto 1 by mouth every day 90tabs Yessy Andersen, 08/30/2018 20mg N.P. Tablets Centrum Silver 1 by mouth every day Unknown Ultra Womens Tablets Glucosamine take two Unknown Chondroitin 1500 capsule/tablet daily Complex Maximum by mouth Strength 1500Com Capsules Coq10 1 by mouth every day Unknown 400mg Capsules Vitamin E-400 1 by mouth daily Unknown 400Unit Capsules D3 Maximum take one Unknown Strength capsule/tablet daily 5000Unit by mouth Capsules Fish Oil [place] 3 1360 mg 1 gel cap po Unknown [employer] qd Propranolol HCL ER 1 po daily Unknown 120mg Caps ER 24HR Diltiazem HCL Take 1 Tablet By Mouth Unknown Every Day as Needed 30mg Tablets For Palpitations Medications Administered in Office Medication SIG Qnty Indications Ordering Provider Date Triamcinolone (Kenalog) Judah Segura MD 05/25/2018 Injection Immunizations CPT Code Status Date Vaccine Reaction Lot # [id number] Given 04/19/2019 Influenza Virus Vaccine, Pharmacy admin Quadrivalent, Split, Preservative Free [id number] Given 04/13/2018 Influenza Virus Vaccine, Quadrivalent, Split, Preservative Free 80795 Given 12/22/2015 Pneumonia Vaccine [id number] 93803 Given 12/22/2015 Tdap - Tetanus/Diptheria/Acellular [id number] Pertussis 58174 Given 08/29/2014 Zoster (Zostavax) [id number] 24063 Given 08/29/2014 Pneumococcal Conjugate Vaccine 13 [id number] Valent For Intramuscular Use Vital Signs Date Vital Result Comment 05/28/2019 3:56pm Height 63.5 inches 5'3.50" Weight 128.12 lb Heart Rate 65 /min BP Systolic 128 mmHg BP Diastolic 76 mmHg Body Temperature 97.0 F O2 % BldC Oximetry 98 % BMI (Body Mass Index) 22.3 kg/m2 02/11/2019 10:25am Height 64 inches 5'4" Weight 127.50 lb Heart Rate 68 /min BP Systolic Sitting 118 mmHg Lue reg cuff BP Diastolic Sitting 74 mmHg Lue reg cuff Respiratory Rate 14 /min O2 % BldC Oximetry 98 % On Ra BMI (Body Mass Index) 21.9 kg/m2 Results Description No Information Available Procedures Date Code Description Status 02/05/2019 37577 Polysomnography Sleep Staging 4+ Parameters Completed 05/25/2018 [id number] Mammogram Completed 12/25/2015 [id number] Mammogram Completed 09/15/2014 [id number] Bone Mineral Density Test Completed 04/24/2014 [id number] Colonoscopy Completed 07/11/2012 [id number] Bone Mineral Density Test Completed 07/11/2012 [id number] Mammogram Completed 05/20/2011 [id number] Mammogram Completed 05/06/2010 [id number] Bone Mineral Density Test Completed 05/06/2010 [id number] Mammogram Completed Medical Devices Description No Information Available Encounters Type Date Location Provider Dx Diagnosis Office Visit 02/11/2019 Pulmon[facility] Flor G47.33 Obstructive sleep 10:[facility]a [facility] apnea (adult) 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 examination without abnormal findings 05/28/2019 I10 Essential (primary) hypertension Sarai Ivy, N.P. 05/28/2019 G47.33 Obstructive sleep apnea (adult) (pediatric) Sarai Ivy , N.P. 05/28/2019 I48.0 Paroxysmal atrial fibrillation Sarai Ivy, N.P. 02/11/2019 G47.33 Obstructive sleep apnea (adult) (pediatric) Flor Mercedes NP 02/05/2019 G47.33 Obstructive sleep apnea (adult) (pediatric) Berna Perez MD Plan of Treatment 05/28/2019 - Sarai Ivy, N.P.Z00.00 Encounter for general adult medical examination without abnormal findingsComments:For your routine health maintenance: Your colonoscopy is up to date. You had this in 2013. You will not need this repeated barring anything unforeseen.Your pneumonia immunizations are up to date. You had these in 2015 and 2016. You will not need these again. There is a new shingles vaccine available, Shingrix. This is a series of 2 injections given 2 - 6 months apart. This is available at the pharmacy and I urge you to get this. I encourage you to continue to see your svp digital sales food & cooking regularly.I10 Essential (primary) hypertensionComments:For your high blood pressure: Continue with your current medication. I would like you to monitor your blood pressure at home. If your readings at home are consistently higher than 140/90, please call the office.Follow up:PE in 6 months Medicare Wellness Visit 1 yearG47.33 Obstructive sleep apnea (adult) (pediatric)Comments:For your sleep apnea I encourage you to continue to sleep on your sideI48.0 Paroxysmal atrial fibrillationComments:Please follow up with Dr Girard. Functional Status Description No Information Available Mental Status Description No Information Available Referrals Description No Information Available
[2019-08-05] MEDS ORDERED: Sotalol TAB* 80 MG PO ONE (18:22)
[2019-08-05] MEDS ORDERED: Rivaroxaban TAB(*) 10 MG PO ONE (18:22)
[2019-08-05] MEDS ORDERED: Lidocaine PATCH 5%* 1 PATCH TRANSDERM ONE (18:22)
--- NOTE | 2019-08-05 18:23 | ED ---
Back Pain - HPI Summary HPI Summary: 79-year-old female presents with worsening back pain for possible days. States that she has been on blood pressure medications which causes her to become dizzy when she stands up. She states she fell a couple weeks ago has had lower back since. States feels like her herniation of her back has been getting worse. Denies any numbness or tingling. No fevers. No urinary symptoms. No hematuria. No weakness. She is still able to ambulate. She has worsening pain with ambulation. She has been taking Tylenol for her pain. She takes xarelto as she has a new pacer. - History of Current Complaint Chief Complaint: EDBackInjuryPain Stated Complaint: BACK PAIN PER PT Time Seen by Provider: 08/05/19 18:08 Pain Intensity: 8 - Allergies/Home Medications Allergies/Adverse Reactions: Allergies Allergy/AdvReac Type Severity Reaction Status Date / Time No Known Allergies Allergy Verified 08/05/19 18:02 PMH/Surg Hx/FS Hx/Imm Hx Endocrine/Hematology History: Denies: Hx Diabetes Cardiovascular History: Reports: Hx Hypertension - UNDER CONTROL WITH MEDICATION Denies: Hx Pacemaker/ICD Respiratory History: Denies: Other Respiratory Problems/Disorders History: Denies: Hx Renal Disease Musculoskeletal History: Reports: Other Musculoskeletal History - TEMP BACK PROBLEM 06/2013-STATES FROM FALL AND [place] NOW Denies: Hx Rheumatoid Arthritis, Hx Osteoporosis Sensory History: Reports: Hx Cataracts - BILATERAL, Hx Contacts or Glasses - READING Denies: Hx Hearing Aid Opthamlomology History: Reports: Hx Cataracts - BILATERAL, Hx Contacts or Glasses - READING Psychiatric History: Denies: Hx Panic Disorder - Cancer History Cancer Type, Location and Year: SKIN CANCER - - Surgical History Surgery Procedure, Year, and Place: C SECTION ;. KNEE- Rt -SHATTER KNEE CAP REMOVE ;. SKIN CANCER - REMOVAL ;. PINIDAL CYST ;. Rt & Lt SHOULDER - RTC RT [address] BURCH ;. CATARACTS 2015 BOTH EYES ; Hx Anesthesia Reactions: No Infectious Disease History: No Infectious Disease History: Denies: Traveled Outside the [place] in Last 30 Days - Family History Known Family History: Positive: Non-Contributory - Social History Alcohol Use: Daily Alcohol Amount: 1 GLASS OF RED WINE Q NIGHT Substance Use Type: Reports: None Smoking Status (MU): Never Smoked Tobacco Review of Systems Negative: Fever Negative: Chest Pain Negative: Shortness Of Breath Positive: Myalgia - back pain All Other Systems Reviewed And Are Negative: Yes Physical Exam Triage Information Reviewed: Yes Vital Signs On Initial Exam: Initial Vitals Temp Pulse Resp BP Pulse Ox 98.2 F 81 19 174/102 100 08/05/19 17:59 08/05/19 17:59 08/05/19 17:59 08/05/19 17:59 08/05/19 17:59 Vital Signs Reviewed: Yes Appearance: Positive: Well-Appearing Skin: Positive: Warm, Dry Head/Face: Positive: Normal Head/Face Inspection Eyes: Positive: Normal, Conjunctiva Clear ENT: Positive: Pharynx normal Respiratory/Lung Sounds: Positive: Clear to Auscultation, Breath Sounds Present Cardiovascular: Positive: Normal, RRR Abdomen Description: Positive: Nontender, Soft. Negative: CVA Tenderness (R), CVA Tenderness (L) Bowel Sounds: Positive: Present Musculoskeletal: Positive: Strength/ROM Intact - back with pain, Other - tenderness lower back, neg slr, good pulses, sensation grossly intact Neurological: Positive: Normal, Reflexes Intact - patella, Babinski Bilateral - normal Psychiatric: Positive: Normal Procedures - Sedation Patient Received Moderate/Deep Sedation with Procedure: No Diagnostics - Vital Signs Vital Signs Temp Pulse Resp BP Pulse Ox 08/05/19 17:59 98.2 F 81 19 174/102 100 - Laboratory Lab Statement: Any lab studies that have been ordered have been reviewed, and results considered in the medical decision making process. - CT lumbar CT Interpretation Completed By: Radiologist Summary of CT Findings: 1. Severe burst fracture of T12 that has developed since the prior MRI on 02/13/2014, with severe loss of vertebral body height and retropulsion of the superior cortex by 5 mm into the spinal canal, which causes mild spinal canal stenosis at the level of the retropulsion. 2. Mild superior endplate compression fracture of L2 with minimal buckling of the cortex posteriorly that has developed since the prior MRI on 02/13/2014. 3. Mild superior endplate compression fracture of L5 that is new compared to the prior MRI on 02/13/2014. 4. Degenerative changes in the lumbar spine as detailed above, with progression compared to the prior MRI on 02/13/2014. 5. T11 -T12: Mild spinal canal stenosis. 6. L2-L3: Mild stenosis of the right lateral recess. Back Pain Course/Dx - Course Course Of Treatment: 79-year-old female presents with worsening back pain for possible days. States that she has been on blood pressure medications which causes her to become dizzy when she stands up. She states she fell a couple weeks ago has had lower back since. States feels like her herniation of her back has been getting worse. Denies any numbness or tingling. No fevers. No urinary symptoms. No hematuria. No weakness. She is still able to ambulate. She has worsening pain with ambulation. She has been taking Tylenol for her pain. She takes xarelto as she has a new pacer. on exam has tenderness in lower back. neurovascular intact. CT shows compression fractures. unclear when happened but patient feel many weeks ago and is able to ambulate and no neuro deficit noted. urine shows potential uti. nontender over flanks. will treat with augmentin. gave referral to neurosurgery. patient understand and agrees with plan. - Diagnoses Differential Diagnosis/HQI/PQRI: Positive: Fracture, Herniated Disc, Strain Provider Diagnoses: Back pain, UTI (urinary tract infection) Discharge ED - Sign-Out/Discharge Documenting (check all that apply): Patient Departure - Discharge Plan Condition: Good Disposition: HOME Prescriptions: Amoxicillin/Clavulanate TAB* [Augmentin TAB 500 mg*] 500 mg PO BID #9 tab Lidocaine PATCH 5%* [Lidoderm 5% Patch*] 1 patch TRANSDERM DAILY #6 patch methylPREDNISolone [Medrol Dosepak 4 MG*] 4 mg PO .SEE KEKE INSTRUCTION #1 packet Patient Education Materials: Back Pain (ED) Referrals: Soni Musa MD [Primary Care Provider] - Rachel Mcclain MD [Medical Doctor] - Additional Instructions: take antibiotics twice a day for 5 days Follow directions on package for Medrol pack Apply lidocaine patches to area for up to 12 hours in one 24 hour period Use Tylenol for pain every 6 hours ice/heat area, move as much as possible follow up with neurosurgery Follow up with primary within 5 days Return to ED if develop any new or worsening symptoms - Billing Disposition and Condition Condition: GOOD Disposition: Home
[2019-08-05] MEDS ORDERED: Rivaroxaban TAB(*) 20 MG TAB PO ONE (19:00)
[2019-08-05 19:06] LABS: Urine Appearance Clear; Urine Bilirubin Negative (Negative); Urine Blood Negative (Negative); Urine Color Yellow; Urine Glucose Negative (Negative); Urine Ketones Negative (Negative); Urine Nitrite Negative (Negative); Urine Protein Negative (Negative); Urine Specific Gravity 1.013 (1.010-1.030); Urine Urobilinogen Negative (Negative)
[2019-08-05 19:10] LABS: Urine Bacteria Absent (Absent); Urine Red Blood Cell Absent (Absent); Urine Squamous Epithelial Cell Present (Absent); Urine White Blood Cell 1+(6-10/hpf) (Absent)
[2019-08-05] MEDS ORDERED: Acetaminophen TAB* 325 MG PO ONE (19:24)
[2019-08-05] MEDS ORDERED: Dexamethasone TAB* 4 MG PO ONE (20:23)
[2019-08-05] MEDS ORDERED: Amoxicillin/Clavulanate TAB* 500 MG PO ONE (20:23)
[2019-08-05] MEDS ORDERED: Lidocaine Patch REMOVE* 1 NOTE MISC SCH (21:00)
[2019-08-05 21:06] VITALS: BP 163/97
== END 2019-08-05 21:04 | disposition home or self-care (01) ==
LOC: ED 17:58
DX: M54.9 Dorsalgia, unspecified (principal); N39.0 Urinary tract infection, site not specified; I10 Essential (primary) hypertension; Z95.0 Presence of cardiac pacemaker
CPT/HCPCS: 72131; 81003; 81015; 87086; 99282; A9270-GY; J8540

== ENCOUNTER 2019-09-01 11:09 | Emergency (ER) | payer MEDICARE, OTHER ==
--- OUTSIDE RECORDS SUMMARY | 2019-09-01 11:20 | XMS REPORT | Summary of Care ---
:1940 Author Organization [facility] Address [address] [place] [address] Care Team Providers Name Role Phone Sarai Ivy NP Primary Care Provider Reason for Visit Reason Comments Follow Up Encounter Details Date Type Department Care Team Description 08/09/2019 Office Visit [facility] Alvin Casas NP Paroxysmal A-fib (HCC) (Primary Dx); [address] Persistent atrial fibrillation; [place] [address] [place] [address] Essential hypertension; [phone] Sinus node dysfunction (HCC); AV node dysfunction Allergies No Known Allergiesdocumented as of this encounter (statuses as of 08/09/2019) Medications Medication Sig Dispensed Refills Start Date End Date Status potassium chloride Take 10 mEq by 0 Active (MICRO-K) 10 MEQ Oral mouth DAILY. Cap CR alpha-tocopherol Take 400 Units 0 Active (VITAMIN E) 400 UNIT by mouth Oral Cap DAILY. Cholecalciferol (VITAMIN Take 1 Cap by 0 Active D3) 5000 units Oral Cap mouth DAILY. [place]-3 Fatty Acids Take 1,360 mg 0 Active (OMEGA-3 FISH OIL PO) by mouth DAILY. Multiple Take 1 Tab by 0 Active Vitamins-Minerals mouth DAILY. (CENTRUM SILVER 50+WOMEN) Oral Tab Coenzyme Q10 (CO Q-10) Take 1 Cap by 30 Cap 0 10/16/2018 Active 400 MG Oral Cap mouth DAILY. ramipril (ALTACE) 2.5 MG Take 1 Cap by 90 Cap 3 12/31/2018 Active Oral Cap mouth DAILY. rivaroxaban (XARELTO) 20 Take 1 Tab by 90 Tab 3 03/12/2019 Active MG Oral Tab mouth DAILY. diltiazem (CARDIZEM) 30 Take 1 Tab by 30 Tab 2 03/22/2019 Active MG Oral Tab mouth DAILY NEEDED (Heart Palpitaitons). propranolol (INDERAL LA) Take 1 Cap by 90 Cap 0 07/12/2019 Active 120 MG Oral CAPSULE SR mouth DAILY. 24 HR sotalol (BETAPACE) 80 MG Take 1 Tab by 180 Tab 3 08/05/2019 11/03/2019 Active Oral Tab mouth TWICE DAILY for 90 days. documented as of this encounter (statuses as of 08/09/2019) Active Problems Problem Noted Date AV node dysfunction 06/17/2019 Sinus node dysfunction 06/13/2019 Atrial fibrillation 05/06/2019 Overview: Added automatically from request for surgery [id number] Paroxysmal A-fib 02/28/2019 Overview: Added automatically from request for surgery [id number] Persistent atrial fibrillation 10/10/2018 Essential hypertension 10/10/2018 Non-rheumatic mitral regurgitation 10/10/2018 documented as of this encounter (statuses as of 08/09/2019) Social History Tobacco Use Types Packs/Day Years [...] Sign Reading Time Taken Comments Blood Pressure 118/72 08/09/2019 1:07 PM EST Pulse 79 08/09/2019 1:07 PM EST Temperature - - Respiratory Rate - - Oxygen Saturation - - Inhaled Oxygen Concentration - - Weight 57.5 kg (126 lb 12.8 oz) 08/09/2019 1:07 PM EST Height 162.6 cm (5' 4") 08/09/2019 1:07 PM EST Body Mass Index 21.77 08/09/2019 1:07 PM EST documented in this encounter Patient Instructions Patient InstructionsAlvin Casas NP - 08/09/2019 1:00 PM ESTProvider's Instructions Reason for Visit to Cardiology: No diagnosis found. Medications: Take medications as directed. Activity/Restrictions: Activity as tolerated. Discharge Diet: Heart Healthy Follow Up Care: Please call with any concerns [phone] Please return in three months in a visit. Time: 13:24 Smoking: If you or your caregiver smoke, we recommend that you quit. For smoking cessation help, please callthe National Quit Line at . If you feel [...] Treatment Date Type Specialty Care Team Description 10/22/2019 [facility] 11/11/2019 Office Visit Cardiology Alvin Casas NP [address] [place] [address] [phone] 01/27/2020 Office Visit Arrhythm[facility] Center Health Maintenance [...] of this encounter Implants Implanted Type Area Developer Architect Device Shelf Model / Identifier Expiration Date Serial / Lot Lead, Tendril Mri [id number] - [id number] [employer], 2020 [id number] / Implanted: Qty: 1 on 06/14/2019 by Yves Espino MD at [facility]. [id number] / Lead, Tendril Mri [id number] - [id number] [employer], 2019 [id number] / Implanted: Qty: 1 on 06/14/2019 by Yves Espino MD at [facility] [id number] / Select Secure Lead [id number] - [id number] [employer] 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, 04/29/2020 [id number] / Implanted: Qty: 1 on 06/14/2019 by Yves Espino MD at [facility] [id number] / documented as of this encounter Results Not on filedocumented in this encounter Visit Diagnoses Diagnosis Paroxysmal A-fib (HCC) Atrial fibrillation Persistent atrial fibrillation Atrial fibrillation Essential hypertension Unspecified essential hypertension Sinus node dysfunction (HCC) Sinoatrial node dysfunction AV node dysfunction Other specified conduction disorder documented in this encounter Insurance Payer Benefit [...]
--- OUTSIDE RECORDS SUMMARY | 2019-09-01 11:20 | XMS REPORT | Continuity of Care Document ---
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 Onset: 04/27/2011 Basal Cell Carcinoma Skin Of Other & Sarai Ivy, N.P. Onset: 04/27/2011 Unspecified Parts Of Face [...] both parents smoked. 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 Maintaining home Allergies, Adverse Reactions, Alerts Active Allergies Reaction Severity Comments Date No Known Drug Allergy 03/30/2010 Medications Active Medications SIG Qnty Indications Ordering Date Provider Tlso Brace When out of bed M80.88xA Rachel 08/10/19 MD Sarahi 20 Propranolol HCL ER 1 po daily Sarai Cata, 08/07/19 120mg N.P. 20 Caps ER 24HR Sotalol HCL (AF) 1 tab by mouth twice 180tabs Sarai Cata, 08/07/19 80mg a day N.P. 20 Tablets Calcitonin ([place]) one spray daily in 11.1ml M80.88xA Sarai Cata, 03/19 alternate nostrils N.P. 20 200Unit/Act Solution Hydrocodone-Acetaminoph one tablet by mouth 28tabs Sarai Cata, en every 6 hours as N.P. 20 5-325mg Tablets needed for pain Amoxicillin/Clavulanate Twice Daily 9tabs Unknown 08/05/19 Potassium 20 500-125mg Tablets Methylprednisolone .See Bernard Instruction 1units Unknown 08/05/19 4mg TBPK 20 Lidocaine Every Day 6units Unknown 08/05/19 5% Patches 20 Diclofenac Sodium 3 crams topically 300gm M17.11 Bakari F 12/05/19 3% Gel 2-4 times a day as MD Missy 19 needed, generic Ok Patient on Xarelto, NSAIDs contraindicated Potassium Chloride ER 1 by mouth every day 90caps I48.91 Sarai Cata, 10Meq N.P. 19 Capsules ER Ramipril 1 by mouth every day 90caps I48.91 Yessy S. 09/13/19 2.5mg Capsules Ganesh, N.P. 19 Xarelto 1 by mouth every day 90tabs Yessy S. 08/30/19 20mg Tablets Ganesh, N.P. 19 Centrum Silver Ultra 1 by mouth every day Unknown Womens 00 Tablets Glucosamine Chondroitin take two Unknown 1500 Complex Maximum capsule/tablet daily 00 Strength by mouth 1500Com Capsules Coq10 1 by mouth every day Unknown 400mg Capsules 00 Vitamin E-400 1 by mouth daily Unknown 400Unit 00 Capsules D3 Maximum Strength take one Unknown capsule/tablet daily 00 5000Unit Capsules by mouth Fish Oil [place] 3 1360 mg 1 gel cap po Unknown Puritan Pride qd 00 Diltiazem HCL Take 1 Tablet By Unknown 30mg Tablets Mouth Every Day as 00 Needed For Palpitations Medications Administered in Office Medication SIG Qnty Indications Ordering Provider Date Triamcinolone (Kenalog) Judah Segura MD 05/25/2018 Injection Immunizations CPT Code Status Date Vaccine Reaction Lot # [id number] Given 04/19/2019 Influenza Virus Vaccine, Pharmacy admin Quadrivalent, Split, Preservative Free [id number] Given 04/13/2018 Influenza Virus Vaccine, Quadrivalent, Split, Preservative Free 94737 Given 12/22/2015 Pneumonia Vaccine [id number] 17255 Given 12/22/2015 Tdap - Tetanus/Diptheria/Acellular [id number] Pertussis 32704 Given 08/29/2014 Zoster (Zostavax) [id number] 41596 Given 08/29/2014 Pneumococcal Conjugate Vaccine 13 [id number] Valent For Intramuscular Use Vital Signs Date Vital Result Comment 08/10/2019 11:11am Height 63.5 inches 5'3.50" Weight 127.00 lb BP Systolic 139 mmHg R Arm BP Diastolic 66 mmHg R Arm Respiratory Rate 15 /min Body Temperature 97.3 F Pain Level 10 BMI (Body Mass Index) 22.1 kg/m2 08/07/2019 10:28am Height 63.5 inches 5'3.50" Weight 127.25 lb Heart Rate 76 /min BP Systolic Sitting 115 mmHg BP Diastolic Sitting 70 mmHg Body Temperature 97.4 F O2 % BldC Oximetry 98 % BMI (Body Mass Index) 22.2 kg/m2 Results Test Acquired Date Facility Test Result H/L Range Note Urinalysis Profile 08/05/2019 [facility] Urine Color Yellow [address] [place] [address] [phone] Urine Appearance Clear Urine Specific [place] 1.013 Normal 1.010-1.030 Urine pH 6.0 Normal 5-9 Urine Urobilinogen Negative Negative Urine Ketones Negative Negative Urine Protein Negative Negative Urine Leukocytes 2+ Abnormal Negative Urine Blood Negative Negative * * Abnormal Negative 1 Urine Nitrite Negative Negative Urine Bilirubin Negative Negative Urine Glucose Negative Negative Urine White Blood Cell 1+(6-10/hpf) Abnormal Absent Urine Red Blood Cell Absent Absent Urine Bacteria Absent Absent Urine Squamous Epithelial Cell Present Abnormal Absent Urine Culture And 08/05/2019 [facility] Urine Culture SEE RESULT [address] [place] [address] [phone] 1 *Ascorbic acid is present which may interfere with detection of blood. 2 SEE RESULT BELOW Name: PRO VO : [address]: Kavin Brewer MD Acct: [id number] Unit: [id number] AGE: 79 Location: ED Re08/05/19 SEX: F Status: DEP ER SPEC: [id number] RANJANA: 08/05/[address]: Lexi BENITEZ REQ: [id number] RECD: 08/05/19 STATUS: JATIN VILLA DR: Soni Brewer MD _ SOURCE: URINE SPDESC: ORDERED: Urine Culture Procedure Result Reported Site Urine Culture Final 08/07/19- 1144 ML No growth of clinically significant organisms * - Main Lab . END OF REPORT DEPARTMENT OF PATHOLOGY, [address] [place] [address] Ted Alaniz M[address]. Director [facility] # [id number] Procedures Date Code Description Status 05/25/2018 [id number] Mammogram Completed 12/25/2015 [id number] Mammogram Completed 09/15/2014 [id number] Bone Mineral Density Test Completed 04/24/2014 [id number] Colonoscopy Completed 07/11/2012 [id number] Bone Mineral Density Test Completed 07/11/2012 [id number] Mammogram Completed 05/20/2011 [id number] Mammogram Completed 05/06/2010 [id number] Bone Mineral Density Test Completed 05/06/2010 [id number] Mammogram Completed Medical Devices Description No Information Available Encounters Type Date Location Provider Dx Diagnosis Office Visit 02/11/2019 [facility] G47.33 Obstructive sleep 10:30a [facility] Mercedes apnea (adult) 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 pathological fracture, vertebra(e), initial encounter for fracture 05/28/2019 Z00.00 Encounter for general adult medical Sarai Ivy, N.P. examination without abnormal findings 05/28/2019 I10 Essential (primary) hypertension Sarai Ivy, N.P. 05/28/2019 G47.33 Obstructive sleep apnea (adult) Sarai Ivy, N.P. (pediatric) 05/28/2019 I48.0 Paroxysmal atrial fibrillation Sarai Ivy, N.P. 02/11/2019 G47.33 Obstructive sleep apnea (adult) Flor Mercedes NP (pediatric) Plan of Treatment Future Appointment(s):09/27/2019 12:00 pm - Rachel [facility]clain MD [facility]08/10/2019 - Rachel Mcclain, MDM80.88xA Oth osteopor w current path fracture, vertebra(e), initNew Medication:Tlso Brace - When out of bedNew Xrays:SP Lumbarsacral 4+ VWS, Ordered: 08/10/19 Functional Status Description No Information Available Mental Status Description No Information Available Referrals Description No Information Available
--- OUTSIDE RECORDS SUMMARY | 2019-09-01 11:20 | XMS REPORT | Continuity of Care Document ---
:1940 External Reference #:[id number] Author Name Sarai Ivy, N.P. 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 Onset: 04/27/2011 Basal Cell Carcinoma Skin Of Other & Sarai Varn, N.P. Onset: 04/27/2011 Unspecified Parts Of Face Essential hypertension Sarai Varn, N.P. Onset: 12/22/2015 Full thickness rotator cuff [...] both parents smoked. 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 Maintaining home Allergies, Adverse Reactions, Alerts Active Allergies Reaction Severity Comments Date No Known Drug Allergy 03/30/2010 Medications Active Medications SIG Qnty Indications Ordering Date Provider Propranolol HCL ER 1 po daily Sarai 120mg Varn, N.P. 0 Caps ER 24HR Sotalol HCL (AF) 1 tab by mouth twice 180tabs [place] 80mg a day Varn, N.P. 0 Tablets Calcitonin ([place]) one spray daily in 11.1ml M80.88xA [place] alternate nostrils Varn, N.P. 0 200Unit/Act Solution Hydrocodone-Acetaminoph one tablet by mouth 28tabs [place] en every 6 hours as Varn, N.P. 0 5-325mg Tablets needed for pain Amoxicillin/Clavulanate Twice Daily 9tabs Unknown Potassium 0 500-125mg Tablets Methylprednisolone .See Bernard Instruction 1units Unknown 4mg TBPK 0 Lidocaine Every Day 6units Unknown 5% Patches 0 Diclofenac Sodium 3 crams topically 300gm M17.11 Bakari F 3% Gel 2-4 times a day as MD Missy 9 needed, generic Ok Patient on Xarelto, NSAIDs contraindicated Potassium Chloride ER 1 by mouth every day 90caps I48.91 [place] 10Meq Varpraful, N.P. 9 Capsules ER Ramipril 1 by mouth every day 90caps I48.91 [facility] S. 2.5mg Capsules Ganesh N.P. 9 Xarelto 1 by mouth every day 90tabs Yessy S. 20mg Tablets Ganesh N.P. 9 Centrum Silver Ultra 1 by mouth every day Unknown Womens 0 Tablets Glucosamine Chondroitin take two Unknown 1500 Complex Maximum capsule/tablet daily 0 Strength by mouth 1500Com Capsules Coq10 1 by mouth every day Unknown 400mg Capsules 0 Vitamin E-400 1 by mouth daily Unknown 400Unit 0 Capsules D3 Maximum Strength take one Unknown capsule/tablet daily 0 5000Unit Capsules by mouth Fish Oil [place] 3 1360 mg 1 gel cap po Unknown [place] qd 0 Diltiazem HCL Take 1 Tablet By Unknown 30mg Tablets Mouth Every Day as 0 Needed For Palpitations Medications Administered in Office Medication SIG Qnty Indications Ordering Provider Date Triamcinolone (Kenalog) Judah Segura MD 05/25/2018 Injection Immunizations CPT Code Status Date Vaccine Reaction Lot # [id number] Given 04/19/2019 Influenza Virus Vaccine, Pharmacy admin Quadrivalent, Split, Preservative Free [id number] Given 04/13/2018 Influenza Virus Vaccine, Quadrivalent, Split, Preservative Free [id number] Given 12/22/2015 Pneumonia Vaccine [id number] 73827 Given 12/22/2015 Tdap - Tetanus/Diptheria/Acellular ah4lf Pertussis 89428 Given 08/29/2014 Zoster (Zostavax) [id number] 17036 Given 08/29/2014 Pneumococcal Conjugate Vaccine 13 [id number] Valent For Intramuscular Use Vital Signs Date Vital Result Comment 08/07/2019 10:28am Height 63.5 inches 5'3.50" Weight 127.25 lb Heart Rate 76 /min BP Systolic Sitting 115 mmHg BP Diastolic Sitting 70 mmHg Body Temperature 97.4 F O2 % BldC Oximetry 98 % BMI (Body Mass Index) 22.2 kg/m2 05/28/2019 3:56pm Height 63.5 inches 5'3.50" Weight 128.12 lb Heart Rate 65 /min BP Systolic 128 mmHg BP Diastolic 76 mmHg Body Temperature 97.0 F O2 % BldC Oximetry 98 % BMI (Body Mass Index) 22.3 kg/m2 Results Test Acquired Date Facility Test Result H/L Range Note Urinalysis Profile 08/05/2019 [facility] Urine Color Yellow 101 DATES [place] [id number] [phone] Urine Appearance Clear Urine Specific [place] 1.013 Normal 1.010-1.030 Urine pH 6.0 Normal [...] Urine Squamous Epithelial Cell Present Abnormal Absent 1 *Ascorbic acid is present which may interfere with detection of blood. Procedures Date Code Description Status 02/05/2019 82235 Polysomnography Sleep Staging 4+ Parameters Completed 05/25/2018 [id number] Mammogram Completed 12/25/2015 [id number] Mammogram Completed 09/15/2014 [id number] Bone Mineral Density Test Completed 04/24/2014 [id number] Colonoscopy Completed 07/11/2012 [id number] Bone Mineral Density Test Completed 07/11/2012 [id number] Mammogram Completed 05/20/2011 [id number] Mammogram Completed 05/06/2010 [id number] Bone Mineral Density Test Completed 05/06/2010 [id number] Mammogram Completed Medical Devices Description No Information Available Encounters Type Date Location Provider Dx Diagnosis Office Visit 02/11/2019 [facility] G47.33 Obstructive sleep 10:30a [facility] apnea (adult) [facility] (pediatric) Assessments Date Code Description Provider 08/07/2019 M80.88xA Other osteoporosis with current Sarai Varn, N.P. pathological fracture, vertebra(e), initial encounter for fracture 05/28/2019 Z00.00 Encounter for general adult medical Sarai Ivy, N.P. examination without abnormal findings 05/28/2019 I10 Essential (primary) hypertension Sarai Varn, N.P. 05/28/2019 G47.33 Obstructive sleep apnea (adult) Sarai Varn, N.P. (pediatric) 05/28/2019 I48.0 Paroxysmal atrial fibrillation Sarai Varn, N.P. 02/11/2019 G47.33 Obstructive sleep apnea (adult) lFor Mercedes NP (pediatric) 02/05/2019 G47.33 Obstructive sleep apnea (adult) Berna Perez MD (pediatric) Plan of Treatment 08/07/2019 - Sarai Varn, N.P.M80.88xA Other osteoporosis with current pathological fracture, vertebra(e), initial encounter for fractureNew Medication :Calcitonin ([place]) 200 Unit/Act - one spray daily in alternate nostrilsComments:Please keep your appointment with Dr Mcclain. I have prescribed Calcitonin nasal spray. Use 1 inhalation in alternating nostril, once daily. This will help your bones to heal. Functional Status Description No Information Available Mental Status Description No Information Available Referrals Description No Information Available
--- NOTE | 2019-09-01 11:47 | ED ---
Complex/Multi-Sys Presentation - HPI Summary HPI Summary: 79 year old female presents to the ED with a chief complaint of shooting back pain starting last night, worsened this morning. She mentions that she felt something shift in her spine last night. Patient also reports shortness of breath and abdominal pain, the latter of which began a week ago. It feels like "something is pushing on her belly." She has been eating less because she has had difficulty w constipation. She also reports that lying down was the only way she could catch her breath this morning. Tylenol taken this morning did not alleviate the pain. Patient has had a compression fracture on L 2/5 and burst fracture to T12 after a fall last month. PMHx of pacemaker. Patient is on blood thinners (xarelto). - History Of Current Complaint Chief Complaint: EDBackInjuryPain Time Seen by Provider: 09/01/19 11:22 Hx Obtained From: Patient Onset/Duration: Lasting Hours, Still Present Timing: Constant Severity Currently: Severe Location: Pain At: - upper back, lower back, and abdomen Associated Signs And Symptoms: Positive: Abdominal Pain, Back Pain, Decreased Oral Intake - Allergies/Home Medications Allergies/Adverse Reactions: Allergies Allergy/AdvReac Type Severity Reaction Status Date / Time No Known Allergies Allergy Verified 09/01/19 11:15 PMH/Surg Hx/FS Hx/Imm Hx Endocrine/Hematology History: Denies: Hx Diabetes Cardiovascular History: Reports: Hx Hypertension - UNDER CONTROL WITH MEDICATION Denies: Hx Pacemaker/ICD Respiratory History: Denies: Other Respiratory Problems/Disorders History: Denies: Hx Renal Disease Musculoskeletal History: Reports: Other Musculoskeletal History - TEMP BACK PROBLEM 06/2013-STATES FROM [place] AND [place] NOW Denies: Hx Rheumatoid Arthritis, Hx Osteoporosis Sensory History: Reports: Hx Cataracts - BILATERAL, Hx Contacts or Glasses - READING Denies: Hx Hearing Aid Opthamlomology History: Reports: Hx Cataracts - BILATERAL, Hx Contacts or Glasses - READING Psychiatric History: Denies: Hx Panic Disorder - Cancer History Cancer Type, Location and Year: SKIN CANCER - - Surgical History Surgery Procedure, Year, and Place: C SECTION ;. KNEE- Rt -SHATTER KNEE CAP REMOVE ;. SKIN CANCER - REMOVAL ;. PINIDAL CYST ;. Rt & Lt SHOULDER - RTC RT [address] BURCH ;. CATARACTS 2015 BOTH EYES ; Hx Anesthesia Reactions: No Infectious Disease History: No Infectious Disease History: Denies: Traveled Outside the [place] in Last 30 Days - Family History Known Family History: Positive: Non-Contributory - Social History Alcohol Use: Daily Alcohol Amount: 1 GLASS OF RED WINE Q NIGHT Substance Use Type: Reports: None Smoking Status (MU): Never Smoked Tobacco Review of Systems Negative: Fever Positive: Shortness Of Breath Positive: Abdominal Pain, Other - Constipation Positive: Arthralgia - Back pain All Other Systems Reviewed And Are Negative: Yes Physical Exam - Summary Physical Exam Summary: Constitutional: Well-developed, Well-nourished, Alert. (-) Distressed Skin: Warm, Dry HENT: Normocephalic; Atraumatic Eyes: Conjunctiva normal Neck: Musculoskeletal ROM normal neck. (-) JVD, (-) Stridor, (-) Nuchal rigidity Cardio: Rhythm regular, rate normal, Heart sounds normal; Intact distal pulses; Radial pulses are 2+ and symmetric. (-) Murmur Pulmonary/Chest wall: Effort normal. (-) Respiratory distress, (-) Wheezes, (-) Rales Abd: Soft, (-) tenderness, (-) Distension, (-) Guarding, (-) Rebound Musculoskeletal: (-) Edema. Thoracic and lumbar midline tenderness. No cervical tenderness. Lymph: (-) Cervical adenopathy Neuro: Alert, Oriented x3. Tremulous. Psych: Mood and affect Normal Triage Information Reviewed: Yes Vital Signs On Initial Exam: Initial Vitals Temp Pulse Resp BP Pulse Ox 98.5 F 83 16 172/101 99 09/01/19 11:10 09/01/19 11:10 09/01/19 11:10 09/01/19 11:10 09/01/19 11:10 Vital Signs Reviewed: Yes Procedures - Sedation Patient Received Moderate/Deep Sedation with Procedure: No Diagnostics - Vital Signs Vital Signs Temp Pulse Resp BP Pulse Ox 09/01/19 11:10 98.5 F 83 16 172/101 99 - Laboratory Result Diagrams: 09/01/19 12:01 09/01/19 12:01 Lab Statement: Any lab studies that have been ordered have been reviewed, and results considered in the medical decision making process. - CT CAP CT CT Interpretation Completed By: Radiologist Summary of CT Findings: IMPRESSION: 1. AGE-INDETERMINATE T9 COMPRESSION FRACTURE (50% HEIGHT LOSS WITH NO BONY RETROPULSION). 2. MORE SCLEROTIC L2 COMPRESSION FRACTURE WITH PROGRESSIVE HEIGHT LOSS (CURRENTLY 30%: PREVIOUSLY 10 %). ONLY MILD BONY RETROPULSION. 3. T12 COMPRESSION FRACTURE UNCHANGED FROM 2016. 4. OLD NONDISPLACED RIGHT RIB FRACTURES. 5. CARDIOMEGALY WITH LEFT ATRIAL ENLARGEMENT AND MITRAL VALVE ANNULUS CALCIFICATION. An ED physician has reviewed this report. Thoracic CT CT Interpretation Completed By: Radiologist Summary of CT Findings: IMPRESSION: 1. OSTEOPENIA WITH KNOWN T9, T12, L2 AND L5 COMPRESSION FRACTURES. 2. MULTILEVEL SPONDYLOSIS ABOVE. An ED physician has reviewed this report. - EKG 1223 Cardiac Rate: NL - 76 bpm EKG Rhythm: Sinus Rhythm ST Segment: Normal Summary of EKG Findings: An EKG at 1223 reveals atrial sensed, ventricularly paced rhythm at 76 bpm. Nml axis, nml intervals. Paced T wave inversions in 3. AVF. When compared to prior in Aug 2018, no significant changes apart from new paced rhythm. ED physician has reviewed and interpreted this EKG. Re-Evaluation - Re-Evaluation First Eval Re-Evaluation Time: 15:45 Change: Improved - patient feeling better, ambulating in ED. Would like to go home. Instructed to follow up w Dr. Bliss. Complex Multi-Symp Course/Dx Course Of Treatment: 79 y/o F history of thoracic compression fracture as well as lumbar spine fractures in July, presents with worsening pain in her mid back. - Patient with tenderness of the thoracic spine, lumbar spine. Also mild generalized abdominal tenderness. Patient reporting constipation, abdominal fullness making it hard to breathe. We'll check a CT abdomen and pelvis as well as chest to assess for spinal fractures, acute abdominal pathology. Lab work without evidence of infection, tolerating by mouth, do not suspect infectious process or obstruction. Discussed case with Dr. Bliss, neurosurgeon regional maintenance manager who recommends standing films after CT. CT showing slightly worsening of old fractures, newly noted T9 fracture which is also likely old. Patient stable to follow up with neurosurgery, continue wearing TLSO brace. Has Percocet at home for pain control. Regarding abdominal discomfort, no evidence of abnormality on CT, can follow-up with her primary care doctor. Could be secondary to her constipation from medications or gastritis. - Diagnoses Provider Diagnoses: Spinal pain - Physician Notifications Discussed Care Of Patient With: Rachel Mcclain - Neuro Time Discussed With Above Provider: 15:39 Instructed by Provider To: Other - I spoke to Dr. Mcclain, who saw the patient in the ED. He recommends that I discharge the patient. Discharge ED - Sign-Out/Discharge Documenting (check all that apply): Patient Departure - discharge home - Discharge Plan Condition: Stable Disposition: HOME Patient Education Materials: Thoracolumbar Fracture (ED), Acute Abdominal Pain (ED) Referrals: Rachel Mcclain MD [Medical Doctor] - Additional Instructions: You were seen in the emergency department for back pain and abdominal pain. Your CT scan showed fractures in her thoracic and lumbar spine. Neurosurgeon reviewed imaging and thinks she should follow up as outpatient in 2-3 days. Please continue to wear a TLSO brace. Regarding her abdominal pain, we did not find a cause for that. You can try [id number] and acids such as Nexium. Please follow up with your primary care doctor in next 2-3 days and return to emergency department for worsening pain, chest pain, passing out, severe back pain, lower extremity weakness or numbness, or concerning symptoms. It was a pleasure taking care of you today. - Billing Disposition and Condition Condition: STABLE Disposition: Home - Attestation Statements Document Initiated by Courtney: Yes Documenting Scribe: Nagi Nelson Provider For Whom Courtney is Documenting (Include Credential): Jaycee Merida MD Scribe Attestation: I, Nagi Nelson, scribed for Jaycee Merida MD on 09/02/19 at 0807. Scribe Documentation Reviewed: Yes Provider Attestation: The documentation as recorded by the Nagi oden accurately reflects the service I personally performed and the decisions made by me, Jaycee Merida MD Status of Scribe Document: Viewed
[2019-09-01] MEDS ORDERED: Morphine 4 MG/ML VIAL (1 ml) 4 MG/ML VIAL IV ONE (12:10)
[2019-09-01 12:15] LABS: ABS Basophils 0.1 10^3/ul (0-0.2); ABS Lymphocytes 1.1 10^3/ul (1.0-4.8); ABS Monocytes 0.4 10^3/ul (0-0.8); ABS Neutrophils 2.8 10^3/ul (1.5-7.7); Eosinophil % 0.5 %; Hematocrit 35 % (35-47); Hemoglobin 11.9 g/dL (12.0-16.0); Lymphocyte % 25.2 %; Mean Corpuscular HGB Conc 34 g/dL (31-36); Mean Corpuscular Hemoglobin 30 pg (27-31); Mean Corpuscular Volume 88 fL (80-97); Mean Platelet Volume 6.9 fL (7.4-10.4); Nucleated Red Blood Cells % 0.1; Platelet Count 275 10^3/uL (150-450); Red Blood Count 3.93 10^6 /uL (3.70-4.87); Red Cell Distribution Width 14 % (10-15); White Blood Count 4.3 10^3/uL (3.5-10.8)
[2019-09-01 12:24] LABS: Albumin 4.3 g/dL (3.2-5.2); Albumin/Globulin Ratio 1.2 (1-3); Calcium 9.5 mg/dL (8.6-10.3); EGFR African American 144.8 (>60); EGFR Non-African American 119.6 (>60); Globulin 3.5 g/dL (2-4); Potassium 4.2 mmol/L (3.5-5.0); Total Bilirubin 0.6 mg/dL (0.2-1.0); Total Protein 7.8 g/dL (6.4-8.9)
[2019-09-01 12:26] LABS: Troponin I 0.01 ng/mL (<0.03)
[2019-09-01] MEDS ORDERED: Iohexol 300* (CONTRAST) 10 ML SDV IV ONE (12:40)
[2019-09-01] MEDS ORDERED: Al Hydrox/Mg Hydrox/Simet LIQ* 30 ML UDC PO ONE (15:37)
[2019-09-01] MEDS ORDERED: Lidocaine 2% VISCOUS* 15 ML UDC PO ONE (15:37)
[2019-09-01 17:02] VITALS: BP 153/90
--- NOTE | 2019-09-01 20:29 | CONS ---
CONSULTATION NOTE: DATE OF CONSULT: 09/01/19 HISTORY OF PRESENT ILLNESS: The patient is a very pleasant 79-year-old female with a history of osteoporosis; atrial fibrillation, on Xarelto, who had a fall in the beginning of July. She had a visit to the emergency room on 08/05/19 when she was diagnosed with chronic T12 compression fracture and acute L2 superior endplate fracture and mild superior endplate fracture of L5. The patient due to history of pacemaker was not able to have an MRI. She was then consulted and she was seen in my office. The patient returned to the emergency room today because of new onset of mid thoracic back pain, left sided , yesterday. The patient does not have any history of injuries, denies loss of consciousness. She reports that she has significant back pain that made her have difficulty ambulating. The pain is resolved when she is lying flat on her back. She denies any new weakness, numbness, or tingling of her extremities. She denies any urinary or GI incontinence. 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 She is and she has 2 children. PAST MEDICAL HISTORY: 1. Atrial fibrillation. 2. Hypertension. 3. Cataract bilaterally. PAST SURGICAL HISTORY: 1. C section. 2. Right knee surgery. 3. Skin cancer removal. 4. Pacemaker placement. MEDICATIONS: Not known. The patient was on hydrocodone per her primary physician for pain control as she reports. ALLERGIES: No known drug allergies. FAMILY HISTORY: Noncontributory. SOCIAL HISTORY: Tobacco: Negative. Alcohol: One glass of wine every night. Recreational drug use: Negative. PHYSICAL EXAM: The patient is not in acute distress. She is awake, alert, oriented x3. Her pupils are equal and reactive. Cranial nerves II through XII are grossly intact. Motor 4-5/5 in all extremities. Sensory grossly intact to light touch. Deep tendon reflexes +1 bilaterally. No clonus. Babinski negative. Straight-leg raise negative in the supine position. The patient has tenderness to palpation in the mid thoracic spine and to a lesser degree in the lower lumbar spine. She has free range of motion of the cervical spine. DIAGNOSTIC STUDIES/LAB DATA: The patient had a CT scan of the chest, abdomen, and pelvis that reveals a T9 new compression fracture that was not present on the CTA of the chest on 04/25/19. There is a stable T12 fracture. There is mild progression of the L2 superior endplate fracture and grossly stable superior endplate fracture of L5. ASSESSMENT: The patient is a very pleasant 79-year-old female with a history of pacemaker; atrial fibrillation, on Xarelto with recent diagnosis of T12, L2, and L5 fractures with worsening of back pain and new diagnosis of T9 mild compression fracture. PLAN: The patient at this point is doing quite well. Neurovascularly she is intact. Unfortunately, MRI is not possible to obtain because of her pacemaker. I saw the patient . Based on the morphology of the fracture, lack of neurological deficits and her comorbidities, I think that conservative management will be the best option. A TLSO brace may be of benefit. The patient has already got TLSO brace from the previous fracture. We will also recommend aggressive treatment of osteoporosis. We will repeat upright x-rays in approximately 3 to 4 weeks and follow up in the office. If pain is not be able to be controlled, then the patient may be considered to be a candidate for admission by the hospitalist team. Thank you very much for allowing us to participate in the care of this patient. Please do not hesitate to contact our office in case if you any further questions or concerns regarding the care of this patient. [id number]/CPS #: [id number] [place]
== END 2019-09-01 17:13 | disposition home or self-care (01) ==
LOC: ED 11:09
DX: M54.6 Pain in thoracic spine (principal); S22.070D Wedge compression fracture of T9-T10 vertebra, subsequent encounter for fracture with routine healing; S22.080D Wedge compression fracture of T11-T12 vertebra, subsequent encounter for fracture with routine healing; S32.020D Wedge compression fracture of second lumbar vertebra, subsequent encounter for fracture with routine healing; S32.050D Wedge compression fracture of fifth lumbar vertebra, subsequent encounter for fracture with routine healing; W19.XXXD Unspecified fall, subsequent encounter; M85.88 Other specified disorders of bone density and structure, other site; M47.815 Spondylosis without myelopathy or radiculopathy, thoracolumbar region; R10.817 Generalized abdominal tenderness; K59.00 Constipation, unspecified; I10 Essential (primary) hypertension; I48.91 Unspecified atrial fibrillation; Z95.810 Presence of automatic (implantable) cardiac defibrillator; Z79.01 Long term (current) use of anticoagulants; Z79.899 Other long term (current) drug therapy
CPT/HCPCS: 36415; 71260; 72080; 74177; 80053; 84484; 85025; 93005; 96374; 99283; A9270-GY; J2270; Q9967

== ENCOUNTER 2019-09-27 13:13 | Emergency (ER) | payer MEDICARE, OTHER ==
--- OUTSIDE RECORDS SUMMARY | 2019-09-27 14:00 | XMS REPORT | Continuity of Care Document ---
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 Onset: 04/27/2011 Basal Cell Carcinoma Skin Of Other & Sarai Ivy, N.P. Onset: 04/27/2011 Unspecified Parts Of Face Essential hypertension Sarai Cata, N.P. Onset: 12/22/2015 Full thickness rotator cuff [...] parents smoked. 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 80mg Tablets Hydrocodone-Acetami one tablet by mouth 60tabs Sarai Ivy, 08/06/2019 nophen every 6 hours as N.P. 5-325mg needed for pain Tablets Lidocaine every day 6units Sarai Ivy, 08/05/2019 5% N.P. Patches Potassium Chloride 1 by mouth every 90caps I48.91 Sarai Ivy, 2018 ER day N.P. 10Meq Capsules ER Ramipril 1 by mouth every 90caps I48.91 Yessy Andersen, 09/13/2018 2.5mg day N.P. Capsules Xarelto 1 by mouth every 90tabs Yessy Andersen, 08/30/2018 20mg day N.P. Tablets Diltiazem HCL Take 1 Tablet By Unknown 30mg Mouth Every Day as Tablets Needed For Palpitations Fish Oil [place] 3 1360 mg 1 gel cap Unknown [place] po qd D3 Maximum Strength take one Unknown capsule/tablet 5000Unit Capsules daily by mouth Vitamin E-400 1 by mouth daily Unknown 400Unit Capsules Coq10 1 by mouth every Unknown 400mg day Capsules Glucosamine take two Unknown Chondroitin 1500 capsule/tablet Complex Maximum daily by mouth Strength 1500Com Capsules Centrum Silver 1 by mouth every Unknown Ultra Womens day Tablets History Medications Propranolol HCL ER 1 po daily Sarai Ivy, 08/07/2019 - 120mg Caps N.P. 09/27/2019 ER 24HR Calcitonin ([place]) one spray daily in 11.1ml M80.88 Sarai Ivy, 2019 - 200Unit/Act alternate nostrils xA N.P. 09/27/2019 Solution Amoxicillin/Clavulanate Twice Daily 9tabs Unknown 08/05/2019 - Potassium 09/27/2019 500-125mg Tablets Methylprednisolone .See Bernard 1units Unknown 08/05/2019 - 4mg TBPK Instruction 09/27/2019 Medications Administered in Office Medication SIG Qnty Indications Ordering Provider Date Triamcinolone (Kenalog) Judah Segura MD 05/25/2018 Injection Immunizations CPT Code Status Date Vaccine Reaction Lot # [id number] Given 04/19/2019 Influenza Virus Vaccine, Pharmacy admin Quadrivalent, Split, Preservative Free [id number] Given 04/13/2018 Influenza Virus Vaccine, Quadrivalent, Split, Preservative Free [id number] Given 12/22/2015 Pneumonia Vaccine [id number] Given 12/22/2015 Tdap - Tetanus/Diptheria/Acellular ah4lf Pertussis [id number] Given 08/29/2014 Zoster (Zostavax) [id number] Given 08/29/2014 Pneumococcal Conjugate Vaccine 13 [id number] Valent For Intramuscular Use Vital Signs Date Vital Result Comment 09/27/2019 12:00pm Height 63.5 inches 5'3.50" Weight 123.50 lb pt wearing brace, boots Heart Rate 80 /min BP Systolic 140 mmHg BP Diastolic 80 mmHg Pain Level 9 spot on lower back, waist BMI (Body Mass Index) 21.5 kg/m2 08/10/2019 11:11am Height 63.5 inches 5'3.50" Weight 127.00 lb BP Systolic 139 mmHg R Arm BP Diastolic 66 mmHg R Arm Respiratory Rate 15 /min Body Temperature 97.3 F Pain Level 10 BMI (Body Mass Index) 22.1 kg/m2 Results Test Acquired Date Facility Test Result H/L Range Note CBC Auto 09/01/2019 [facility] White Blood 4.3 10^3/uL Normal 3.5-10.[address] [place] [address] [phone] Red Blood Count 3.93 10^6/uL Normal 3.70-4.87 Hemoglobin 11.9 g/dL Low 12.0-16.0 Hematocrit 35 % Normal 35-47 Mean Corpuscular Volume 88 fL Normal 80-97 Mean Corpuscular Hemoglobin 30 pg Normal 27-31 Mean Corpuscular HGB Conc 34 g/dL Normal 31-36 Red Cell Distribution Width 14 % Normal 10-15 Platelet Count 275 10^3/uL Normal 150-450 Mean Platelet Volume 6.9 fL Low 7.4-10.4 Abs Neutrophils 2.8 10^3/uL Normal 1.5-7.7 Abs Lymphocytes 1.1 10^3/uL Normal 1.0-4.8 Abs Monocytes 0.4 10^3/uL Normal 0-0.8 Abs Eosinophils 0.0 10^3/uL Normal 0-0.6 Abs Basophils 0.1 10^3/uL Normal 0-0.2 Abs Nucleated RBC 0.0 10^3/uL Granulocyte % 63.8 % Lymphocyte % 25.2 % Monocyte % 9.1 % Eosinophil % 0.5 % Basophil % 1.4 % Nucleated Red Blood Cells % 0.1 Comp Metabolic Panel 09/01/2019 [facility] Sodium 132 mmol/L Low 135-145 [address] [place] [address] [phone] Potassium 4.2 mmol/L Normal 3.5-5.0 Chloride 100 mmol/L Low 101-111 Co2 Carbon Dioxide 24 mmol/L Normal 22-32 Anion Gap 8 mmol/L Normal 2-11 Glucose 118 mg/dL High 70-100 Blood Urea Nitrogen 14 mg/dL Normal 6-24 Creatinine 0.50 mg/dL Low 0.51-0.95 BUN/Creatinine Ratio 28.0 High 8-20 Calcium 9.5 mg/dL Normal 8.6-10.3 Total Protein 7.8 g/dL Normal 6.4-8.9 Albumin 4.3 g/dL Normal 3.2-5.2 Globulin 3.5 g/dL Normal 2-4 Albumin/Globulin Ratio 1.2 Normal 1-3 Total Bilirubin 0.60 mg/dL Normal 0.2-1.0 Alkaline Phosphatase 159 U/L High 34-104 Alt 22 U/L Normal 7-52 Ast 24 U/L Normal 13-39 Egfr Non- 119.6 >60 Egfr 144.8 >60 1 Laboratory test 09/01/2019 [facility] Troponin-I (TnI) 0.01 ng/ mL <0.03 2 finding [address] [place] [address] [phone] Urinalysis 08/05/2019 [facility] Urine Color Yellow Profile [address] [place] [address] [phone] Urine Appearance Clear Urine Specific Cameron 1.013 Normal 1.010-1.030 Urine pH 6.0 Normal 5-9 Urine Urobilinogen Negative Negative Urine Ketones Negative Negative Urine Protein Negative Negative Urine Leukocytes 2+ Abnormal Negative Urine Blood Negative Negative * * Abnormal Negative 3 Urine Nitrite Negative Negative Urine Bilirubin Negative Negative Urine Glucose Negative Negative Urine White Blood Cell 1+(6-10/hpf) Abnormal Absent Urine Red Blood Cell Absent Absent Urine Bacteria Absent Absent Urine Squamous Epithelial Cell Present Abnormal Absent Urine Culture And 08/05/2019 [facility] Urine Culture SEE RESULT [address] [place] [address] [phone] 1 Because ethnic data is not always [...] 5 Kidney failure <15 (or dialysis) 2 Troponin-I testing on Plasma Separator Tubes (PST) has a known false positive rate of 0.20-0.40%. All positive troponins reflex immediately to secondary confirmatory testing. Using the [employer]stream[employer] DxI 800 Access Immunoassay systems, the 99th percentile upper reference limit was demonstrated to be < 0.03 ng/mL. 3 *Ascorbic acid is present which may interfere with detection of blood. 4 SEE RESULT BELOW Name: PRO VO : [address]: Kavin Brewer MD Acct: [id number] Unit: [id number] AGE: 79 Location: ED Re08/05/19 SEX: F Status: DEP ER SPEC: [id number] RANJANA: 08/05/19 [facility] DR: Lexi BENITEZ REQ: [id number] RECD: 08/05/19 STATUS: JATIN VILLA DR: Soni Brewer MD _ SOURCE: URINE SPDESC: ORDERED: Urine Culture Procedure Result Reported Site Urine Culture Final 08/07/19- 1144 ML No growth of clinically significant organisms * ML - Main Lab . END OF REPORT DEPARTMENT OF PATHOLOGY, [address] [place] [address] Ted Alaniz M.D. Director [facility] # [id number] Procedures Date Code Description Status 05/25/2018 [id number] Mammogram Completed 12/25/2015 [id number] Mammogram Completed 09/15/2014 [id number] Bone Mineral Density Test Completed 04/24/2014 [id number] Colonoscopy Completed 07/11/2012 [id number] Bone Mineral Density Test Completed 07/11/2012 [id number] Mammogram Completed 05/20/2011 [id number] Mammogram Completed 05/06/2010 [id number] Bone Mineral Density Test Completed 05/06/2010 [id number] Mammogram Completed Medical Devices Description No Information Available Encounters Type Date Location Provider Dx Diagnosis Office Visit 08/10/2019 Neurosurgery [facility] M80.88xA Oth osteopor w 11:30a Services Of Theresa Mcclain MD current path fracture, vertebra(e), init Office Visit 08/07/2019 [facility] Sarai Ivy, S22.000A Wedge compression 10:20a Medicine - Ccmob N.P. fracture of unsp thoracic vertebra, init M80.88xA Oth osteopor w current path fracture, vertebra(e), init W19.xxxA Unspecified fall, initial encounter Assessments Date Code Description Provider 09/27/2019 M80.88xA Other osteoporosis with current Rachel Mcclain MD pathological fracture, vertebra(e), initial encounter for fracture 09/27/2019 S22.000A Wedge compression fracture of Rachel Mcclain MD unspecified thoracic vertebra, initial encounter for closed fracture 08/10/2019 M80.88xA Other osteoporosis with current Rachel Mcclain MD pathological fracture, vertebra(e), initial encounter for fracture 08/07/2019 S22.000A Wedge compression fracture of Sarai Ivy, N.P. unspecified thoracic vertebra, initial encounter for closed fracture 08/07/2019 M80.88xA Other osteoporosis with current Sarai Ivy, N.P. pathological fracture, vertebra(e), initial encounter for fracture 08/07/2019 W19.xxxA Unspecified fall, initial encounter Sarai Ivy, N.P. 05/28/2019 Z00.00 Encounter for general adult medical Sarai Ivy, N.P. examination without abnormal findings 05/28/2019 I10 Essential (primary) hypertension Sarai Ivy, N.P. 05/28/2019 G47.33 Obstructive sleep apnea (adult) Sarai Ivy, N.P. (pediatric) 05/28/2019 I48.0 Paroxysmal atrial fibrillation Sarai Ivy, N.P. Plan of Treatment 09/27/2019 - Rachel Mcclain, MDM80.88xA Oth osteopor w current path fracture, vertebra(e), initNew Xrays:Spine Thoracolumbar Standing, Ordered: Referral:Nicky Gabriel MD, Sports Medicine:Family prFollow up:RV in 1-2 jftqutU13.000A Wedge compression fracture of unsp thoracic vertebra, init Functional Status Description No Information Available Mental Status Description No Information Available Referrals Refer to Dr Reason for Referral Status Appt Date Nicky Gabriel MD Created [address] [place] [address] [phone]
[2019-09-27] MEDS ORDERED: HYDROcodone/ACETAMIN 5-325 MG* 1 TAB PO ONE (14:45)
--- NOTE | 2019-09-27 14:58 | ED ---
Back Pain - HPI Summary HPI Summary: 79-year-old female presents with increasing back pain since Monday. States that she has multiple compression fractures in her back and is seeing neurosurgery. she ended up twisting in the car and felt some pain in her lower back on Monday. States the pain has persistent since then. Is more pain than she was previously in. Has been using a back brace. She denies any weakness. No numbness or tingling. No pain down the legs. No loss of bowel or bladder. No saddle anesthesias. No fevers. Has been using [place] with minimal relief of pain. Pain only manageable when she is laying flat. Denies any other injury. she has history of pacemaker and is on xarelto. - History of Current Complaint Chief Complaint: EDBackInjuryPain Stated Complaint: BACK PAIN PER PT Time Seen by Provider: 09/27/19 14:39 Pain Intensity: 9 - Allergies/Home Medications Allergies/Adverse Reactions: Allergies Allergy/AdvReac Type Severity Reaction Status Date / Time No Known Allergies Allergy Verified 09/27/19 13:20 Home Medications: Home Medications Cholecalciferol TAB* [Vitamin D TAB*] 400 unit PO DAILY 07/08/13 [History Confirmed 09/27/19] Harrison-3 Fatty Acids/Fish Oil [Harrison 3 1,000 mg Softgel] 1 cap PO DAILY 05/22/14 [History Confirmed 09/27/19] Ca/D3/Mag/Zinc/Araseli/Mann/Mgbor [Caltrate 600-D3-Min Chew Tab] 1 each PO DAILY [History Confirmed 09/27/19] Rivaroxaban TAB(*) [Xarelto 20 mg] 20 mg PO DAILY #0 08/31/18 [Rx Confirmed ] Ramipril CAP* [Altace CAP*] 2.5 mg PO DAILY 09/21/18 [History Confirmed 09/27/19 ] Lidocaine PATCH 5%* [Lidoderm 5% Patch*] 1 patch TRANSDERM DAILY #6 patch [Rx Confirmed 09/27/19] Calcitonin NASAL(NF) [Fortical(NR)] 1 spray ALT NARE DAILY 09/27/19 [History Confirmed 09/27/19] HYDROcodone/ACETAMIN 5-325 MG* [[place] 5-325 TAB*] 1 tab PO Q6H PRN MDD 4 tabs [History Confirmed 09/27/19] Hydrocodone/Acetaminophen [[place] 10-325 Tablet] 1 each PO Q6HR PRN #12 tablet MDD 4 09/27/19 [Rx] Potassium Chlor TAB* [Klor Con ER TAB*] 10 meq PO DAILY 09/27/19 [History Confirmed 09/27/19] Sotalol TAB* [Betapace 80 MG TAB*] 40 mg PO BID 09/27/19 [History Confirmed ] methylPREDNISolone [Medrol Dosepak 4 MG*] 4 mg PO .SEE KEKE INSTRUCTION #1 packet 09/27/19 [Rx] PMH/Surg Hx/FS Hx/Imm Hx Endocrine/Hematology History: Reports: Hx Anticoagulant Therapy Denies: Hx Diabetes Cardiovascular History: Reports: Hx Hypertension - UNDER CONTROL WITH MEDICATION Denies: Hx Pacemaker/ICD Respiratory History: Denies: Other Respiratory Problems/Disorders History: Denies: Hx Renal Disease Musculoskeletal History: Reports: Other Musculoskeletal History - TEMP BACK PROBLEM 06/2013-STATES FROM FALL AND OK NOW Denies: Hx Rheumatoid Arthritis, Hx Osteoporosis Sensory History: Reports: Hx Cataracts - BILATERAL, Hx Contacts or Glasses - READING Denies: Hx Hearing Aid Opthamlomology History: Reports: Hx Cataracts - BILATERAL, Hx Contacts or Glasses - READING Neurological History: Reports: Other Neuro Impairments/Disorders - COMPRESSION Fx L2-5 AND BURST Fx T-12 Psychiatric History: Denies: Hx Panic Disorder - Cancer History Cancer Type, Location and Year: SKIN CANCER - Surgical History Surgery Procedure, Year, and Place: TUBAL. ;. KNEE- Rt -SHATTER KNEE CAP REMOVE ;. SKIN CANCER - REMOVAL ;. PINIDAL CYST ;. Rt & Lt SHOULDER - RTC RT [address] BURCH ;. CATARACTS 2015 BOTH EYES ;. CARDIAC ABLATION. PACEMAKER Hx Anesthesia Reactions: No Infectious Disease History: No Infectious Disease History: Denies: Traveled Outside the [place] in Last 30 Days - Family History Known Family History: Positive: Non-Contributory - Social History Alcohol Use: None Alcohol Amount: "not anymore" Substance Use Type: Reports: None Smoking Status (MU): Never Smoked Tobacco Review of Systems Negative: Fever Negative: Chest Pain Negative: Shortness Of Breath Positive: Myalgia - back pain All Other Systems Reviewed And Are Negative: Yes Physical Exam Triage Information Reviewed: Yes Vital Signs On Initial Exam: Initial Vitals Temp Pulse Resp BP Pulse Ox 98.1 F 83 18 178/93 100 09/27/19 13:17 09/27/19 13:17 09/27/19 13:17 09/27/19 13:17 09/27/19 13:17 Vital Signs Reviewed: Yes Appearance: Positive: Well-Appearing Skin: Positive: Warm, Dry Head/Face: Positive: Normal Head/Face Inspection Eyes: Positive: Normal, Conjunctiva Clear ENT: Positive: Pharynx normal Respiratory/Lung Sounds: Positive: Clear to Auscultation, Breath Sounds Present Cardiovascular: Positive: Normal, RRR Musculoskeletal: Positive: Other - tenderness thoracic and lumbar pain, good pulses, sensation grossly intact Neurological: Positive: Normal, Babinski Bilateral - normal Psychiatric: Positive: Normal Procedures - Sedation Patient Received Moderate/Deep Sedation with Procedure: No Diagnostics - Vital Signs Vital Signs Temp Pulse Resp BP Pulse Ox 09/27/19 13:17 98.1 F 83 18 178/93 100 - Laboratory Lab Statement: Any lab studies that have been ordered have been reviewed, and results considered in the medical decision making process. - CT lumbar CT Interpretation Completed By: Radiologist Summary of CT Findings: IMPRESSION: 1. Acute L1 and L3 compression fractures result in approximately 10% vertebral body height loss. There is no severe bony retropulsion at these levels. 2. There is progressive height loss of the subacute L2 compression fracture (currently 30%: Previously 10%). 3. Similar appearing subacute T12 and L5 compression fractures with 80% vertebral body height loss and moderate bony retropulsion at T12. 4. There is at least moderate spinal canal stenosis at T11-T12 on the basis of bony retropulsion. 5. Generalized osteopenia. thoracic CT Interpretation Completed By: Radiologist Summary of CT Findings: IMPRESSION: There is progressive compression of the T8 vertebra when compared to previous exam of September 01, 2019. Compression of T9 , T12 and T3 are unchanged. Re-Evaluation - Re-Evaluation First Eval Re-Evaluation Time: 16:12 Change: Improved Comment: pain better after norco Second Eval Re-Evaluation Time: 17:21 Comment: still comfortable going home Back Pain Course/Dx - Course Course Of Treatment: 79-year-old female presents with increasing back pain since Monday. States that she has multiple compression fractures in her back and is seeing neurosurgery. she ended up twisting in the car and felt some pain in her lower back on Monday. States the pain has persistent since then. Is more pain than she was previously in. Has been using a back brace. She denies any weakness. No numbness or tingling. No pain down the legs. No loss of bowel or bladder. No saddle anesthesias. No fevers. Has been using [place] with minimal relief of pain. Pain only manageable when she is laying flat. Denies any other injury. On exam tenderness of thoracic and lower back. Neurovascular intact. CT shows new compression of L1 and L3 but no retropulsion. discussed with dr quinones who says would not transfer as no neurodeficit or spine canal impingement that is new. patient states feels comfortable going home. will discharge and increase norco dose to 10-325 as current norco dose is not managing pain. told if can not fill script for norco to increase dose to two tablets every 6 hours. will give medrol. told follow up with neurosurgery. patient understand and agrees with plan. - Diagnoses Differential Diagnosis/HQI/PQRI: Positive: Fracture, Herniated Disc, Strain Provider Diagnoses: Back pain Discharge ED - Sign-Out/Discharge Documenting (check all that apply): Patient Departure - Discharge Plan Condition: Good Disposition: HOME Prescriptions: Hydrocodone/Acetaminophen [[place] 10-325 Tablet] 1 each PO Q6HR PRN #12 tablet MDD 4 PRN Reason: Pain - Severe methylPREDNISolone [Medrol Dosepak 4 MG*] 4 mg PO .SEE KEKE INSTRUCTION #1 packet Patient Education Materials: Vertebral Compression Fracture (ED) Referrals: Soni Musa MD [Primary Care Provider] - Additional Instructions: follow up with neurosurgery take norco 10-325 every 6 hours, if unable to fill script take two tablets every 6 hours take medrol dose pack Follow up with primary apply lidocaine patch every 12 hours and remove for 12 hours Return to ED if develop any new or worsening symptoms - Billing Disposition and Condition Condition: GOOD Disposition: Home
[2019-09-27 17:53] VITALS: BP 170/90
== END 2019-09-27 17:51 | disposition home or self-care (01) ==
LOC: ED 13:13
DX: M54.5 Low back pain (principal); M54.6 Pain in thoracic spine; S32.010A Wedge compression fracture of first lumbar vertebra, initial encounter for closed fracture; S32.030A Wedge compression fracture of third lumbar vertebra, initial encounter for closed fracture; X50.1XXA Overexertion from prolonged static or awkward postures, initial encounter; Y92.810 Car as the place of occurrence of the external cause; S22.030D Wedge compression fracture of third thoracic vertebra, subsequent encounter for fracture with routine healing; S22.060D Wedge compression fracture of T7-T8 vertebra, subsequent encounter for fracture with routine healing; S22.070D Wedge compression fracture of T9-T10 vertebra, subsequent encounter for fracture with routine healing; S22.080D Wedge compression fracture of T11-T12 vertebra, subsequent encounter for fracture with routine healing; S32.020D Wedge compression fracture of second lumbar vertebra, subsequent encounter for fracture with routine healing; S32.050D Wedge compression fracture of fifth lumbar vertebra, subsequent encounter for fracture with routine healing; W19.XXXD Unspecified fall, subsequent encounter; M85.80 Other specified disorders of bone density and structure, unspecified site; M48.04 Spinal stenosis, thoracic region; I10 Essential (primary) hypertension; Z95.0 Presence of cardiac pacemaker; Z79.01 Long term (current) use of anticoagulants; Z79.899 Other long term (current) drug therapy
CPT/HCPCS: 72128; 72131; 99283

== ENCOUNTER 2020-03-03 19:58 | Observation (INO) ==
[2020-03-03 20:41] LABS: ABS Basophils 0.1 10^3/ul (0-0.2); ABS Eosinophils 0.1 10^3/ul (0-0.6); ABS Lymphocytes 1.6 10^3/ul (1.0-4.8); ABS Monocytes 0.4 10^3/ul (0-0.8); Eosinophil % 1.1 %; Hematocrit 31 % (35-47); Lymphocyte % 30.7 %; Mean Corpuscular HGB Conc 36 g/dL (31-36); Mean Corpuscular Hemoglobin 32 pg (27-31); Mean Corpuscular Volume 89 fL (80-97); Mean Platelet Volume 7.7 fL (7.4-10.4); Platelet Count 219 10^3/uL (150-450); Red Blood Count 3.45 10^6 /uL (3.70-4.87); Red Cell Distribution Width 14 % (10-15); White Blood Count 5.1 10^3/uL (3.5-10.8)
[2020-03-03 20:59] LABS: Albumin 4.2 g/dL (3.2-5.2); Albumin/Globulin Ratio 1.4 (1-3); Calcium 9.1 mg/dL (8.6-10.3); EGFR African American 112.9 (>60); EGFR Non-African American 93.3 (>60); Globulin 3.1 g/dL (2-4); Total Bilirubin 0.6 mg/dL (0.2-1.0); Total Protein 7.3 g/dL (6.4-8.9)
[2020-03-03 21:32] LABS: Potassium 4.6 mmol/L (3.5-5.0)
[2020-03-04] MEDS ORDERED: HYDROcodone/ACETAMIN 5/325 mg TAB PO PRN (00:43)
[2020-03-04 05:53] LABS: ABS Eosinophils 0.1 10^3/ul (0-0.6); ABS Lymphocytes 1.7 10^3/ul (1.0-4.8); ABS Monocytes 0.4 10^3/ul (0-0.8); Eosinophil % 1.5 %; Hematocrit 31 % (35-47); Hemoglobin 11.1 g/dL (12.0-16.0); Lymphocyte % 40.2 %; Mean Corpuscular HGB Conc 36 g/dL (31-36); Mean Corpuscular Hemoglobin 32 pg (27-31); Mean Corpuscular Volume 90 fL (80-97); Mean Platelet Volume 7.7 fL (7.4-10.4); Nucleated Red Blood Cells % 0.1; Platelet Count 207 10^3/uL (150-450); Red Blood Count 3.48 10^6 /uL (3.70-4.87); Red Cell Distribution Width 14 % (10-15); White Blood Count 4.3 10^3/uL (3.5-10.8)
[2020-03-04 06:13] LABS: Calcium 8.8 mg/dL (8.6-10.3); Potassium 3.8 mmol/L (3.5-5.0)
[2020-03-04 06:19] LABS: BUN/Creatinine Ratio 27.9 (8-20); EGFR African American 115.1 (>60); EGFR Non-African American 95.1 (>60)
[2020-03-04 06:44] LABS: TSH Ultra Thyroid Stim Horm 3.47 mcIU/mL (0.34-5.60)
[2020-03-04] MEDS ORDERED: OMEGA-3 FATTY ACID 1000 mg(NF) PO SCH (09:00)
[2020-03-04] MEDS ORDERED: CA CARB D3 MAG OX COP MANG ZN PO SCH (09:00)
[2020-03-04] MEDS ORDERED: Potassium Chlor 10 meq TAB PO SCH ×2 (09:00→17:00)
[2020-03-04 12:01] VITALS: BP 101/63
== END 2020-03-04 16:20 | disposition home or self-care (01) ==
LOC: ED 19:58 → INTOOBSV 03-04 02:18 → MEDTELE 03-04 02:18
PROVIDERS: ADMIT Internal Medicine; ATTEND Internal Medicine